=== PATIENT | female | born 1985 | race Caucasian/White ===

== ENCOUNTER 2016-12-11 04:26 | Emergency (ER) | payer OTHER ==
[2016-12-11 04:33] VITALS: BMI 40.1
--- NOTE | 2016-12-11 04:54 | ED PDOC ---
Arrival/HPI - General Chief Complaint: Seizure Time Seen by Provider: 12/11/16 04:32 Historian: Patient - History of Present Illness Narrative History of Present Illness (Text): 12/11/16 05:08 A 31 year old female, whose past medical history includes psychogenic seizures, presents to the emergency department after multiple episodes of seizures today. Patient notes compliance with medications. Patient denies history of epilepsy. Patient denies any other complaints at this time. PMD: Dr. Leary Symptom Onset: Sudden Symptom Course: Unchanged Activities at Onset: Rest Context: Home Past Medical History - Provider Review Nursing Documentation Reviewed: Yes - Infectious Disease Hx of Infectious Diseases: None - Tetanus Immunization Tetanus Immunization: Up to Date, Unknown - Cardiac Hx MA: No Other/Comment: MA - Pulmonary Hx Asthma: Yes Hx Bronchitis: Yes - Neurological Hx Migraine: Yes Hx Seizures: Yes - HEENT Hx Epistaxis: Yes - Renal Hx Pyelonephritis: Yes Other/Comment: Claims that righy kidney is not functional. - Endocrine/Metabolic Other/Comment: h/o adrenal mass - Hematological/Oncological Hx Cancer: Yes (cervix ca) - Integumentary Hx Dermatological Disorder: No - Musculoskeletal/Rheumatological Hx Falls: Yes - Gastrointestinal Hx Gastroesophageal Reflux: Yes - Genitourinary/Gynecological Hx Genitourinary Disorders: No Hx Cervical Cancer: Yes (Had cone bx done) - Psychiatric Hx Psychophysiologic Disorder: Yes (On seroquel.) Hx Bipolar Disorder: Yes Hx Substance Use: Yes - Past Surgical History Past Surgical History: No Previous - Surgical History Hx Cholecystectomy: Yes Hx Dilation and Curettage: Yes Other/Comment: adrenal removal on 03/07. - Anesthesia Hx Anesthesia Reactions: Yes (states she woke up during surgeries) Hx Malignant Hyperthermia: No - Suicidal Assessment Feels Threatened In Home Enviroment: No Family/Social History - Physician Review Nursing Documentation Reviewed: Yes Family/Social History: No Known Family HX Smoking Status: Heavy Smoker > 10 Cigarettes Daily Hx Alcohol Use: No Hx Substance Use: Yes Substance used: Marijuana 12/10/2016 Hx Substance Use Treatment: No Allergies/Home Meds Allergies/Adverse Reactions: Allergies almond Allergy (Verified 03/11/16 11:32) ANAPHYLAXIS almond oil Allergy (Verified 03/11/16 11:32) ANAPHYLAXIS Penicillins Allergy (Verified 03/11/16 11:32) ANAPHYLAXIS phenytoin Allergy (Verified 03/11/16 11:32) RASH Home Medications: Home Meds Medication Instructions Recorded Confirmed Albuterol HFA [Ventolin HFA 90 0.09 mg IH PRN PRN 02/16/12 04/26/16 mcg/actuation (8 g)] Lamotrigine [Lamictal] 200 mg PO HS 02/16/12 04/26/16 Montelukast [Singulair] 10 mg PO DAILY 02/16/12 04/26/16 Clonazepam [Klonopin] 1 mg PO TID 10/12/12 04/26/16 Diltiazem HCl [Cardizem] 30 mg PO TID 10/12/12 04/26/16 Topiramate [Topamax] 100 mg PO BID 10/12/12 04/26/16 buPROPion SR [Wellbutrin SR 150 MG] 150 mg PO QAM 04/30/13 04/26/16 Albuterol 0.5% [Albuterol 0.5% 2.5 mg IH QID 05/04/13 04/26/16 Inhal Wendy (2.5 mg/0.5 ml) UD] Lansoprazole [Prevacid] 20 mg PO DAILY 05/04/13 04/26/16 Acetaminophen/Butalbital/Caf 1 tab PO TID 01/31/14 04/26/16 [Fioricet 325 mg-50 mg-40 mg] Albuterol Sulfate [Ventolin Hfa] 1 puff INH TID 01/31/14 04/26/16 QUEtiapine [Seroquel XR] 100 mg PO TID 01/31/14 04/26/16 QUEtiapine [Seroquel XR] 300 mg PO HS 01/31/14 04/26/16 clonazePAM [Klonopin] 1 mg PO TID 01/31/14 04/26/16 Levetiracetam 500 mg PO DAILY 02/03/14 04/26/16 Baclofen 20 mg PO TID 03/11/16 04/26/16 Cyanocobalamin [Vitamin B12 1000 1,000 mcg PO DAILY 03/11/16 04/26/16 mcg Tab] LORazepam [Ativan] 1 mg PO TID 03/11/16 04/26/16 Naproxen [Naprosyn] 500 mg PO BID 03/11/16 04/26/16 Suboxone 8 mg-2 mg Sl Film 8 mg PO BID 03/11/16 04/26/16 Zolpidem [Ambien] 10 mg PO HS 03/11/16 04/26/16 hydrOXYzine Pamoate [Vistaril] 50 mg PO BID 03/11/16 04/26/16 Review of Systems - Physician Review All systems were reviewed & negative as marked: Yes Physical Exam - Physical Exam Narrative Physical Exam (Text): 12/11/16 04:50- Review of Systems Constitutional: Normal. absent: Fatigue, Weight Change, Fevers Eyes: Normal ENT: Normal Respiratory: Normal absent: SOB, Cough, Sputum Cardiovascular: Normal absent: Chest pain, Palpitations, Syncope Gastrointestinal: Normal absent: Abdominal pain, Diarrhea, Nausea, Vomiting Genitourinary: Normal. absent: Dysuria, Frequency, Hematuria Musculoskeletal: Normal. absent: Arthralgias, Back Pain, Neck Pain Skin: Normal Neurological: Present: seizure Endocrine: Normal Hemo/Lymphatic: Normal Psychiatric: Normal - Physical exam Patient appears age appropriate, speaking full sentences without difficulty Head atraumatic. No nasal bone deformity or tenderness, no facial or jaw pain/ swelling. No tongue biting, no oral lacerations. No neck midline tenderness, thoracic and lumbar spine with no midline tenderness. Pt moving b/l upper and lower extremities without difficulty, 5/5 strength, with full active and passive ROM. Distal neurovasc fully intact. Abd soft/nt/nd, no hematomas, no peritoneal signs. Neg. pelvic rock. - Systems Exam Head: Present: Atraumatic, Normocephalic Pupils: Present: PERRL Extraocular Muscles: Present: EOMI Conjunctiva: Present: Normal Mouth: Present: Moist Mucous Membranes. No mouth trauma, no tongue or mouth lacerations Neck: Present: Normal Range of Motion. No: MIDLINE TENDERNESS, Paraspinal Tenderness Respiratory/Chest: Present: Clear to Auscultation, Good Air Exchange. No: Respiratory Distress, Accessory Muscle Use, Tachypneic Cardiovascular: Present: Regular Rate and Rhythm, Normal S1, S2, Peripheral Pulses Present. No: Murmurs Abdomen: Present: Normal Bowel Sounds, No: Tenderness, Peritoneal Signs, Rebound, Guarding, Distention Back: Present: Normal Inspection. No: Midline Tenderness, Paraspinal Tenderness Upper Extremity: Present: Normal Inspection. No: Cyanosis, Edema Lower Extremity: Present: Normal Inspection. No: Edema Neurological: Present: GCS=15, Speech Normal, cranial nerves II through XII fully intact with no cerebellar abnormality, neuro-sensory fully intact. No focal neurological deficits. Skin: Present: Warm, Dry, Normal Color. No: Rashes Lymphatic: Present: OX3, NI, NC Psychiatric: Present: Alert, Oriented x 3, Normal Insight, Normal Concentration Vital Signs Reviewed: Yes Vital Signs Temp Pulse Resp BP Pulse Ox 12/11/16 04:53 99.3 F 86 17 122/75 96 Temperature: Afebrile Blood Pressure: Normal Pulse: Regular Respiratory Rate: Normal Appearance: Positive for: Well-Appearing, Non-Toxic, Comfortable Pain Distress: None Mental Status: Positive for: Alert and Oriented X 3 Medical Decision Making ED Course and Treatment: 12/11/16 05:03 Impression: A 31 year old female with multiple episodes of seizures. On physical exam, no acute findings. No focal neurological deficits. Plan: -- CT head -- labs -- Reassess and disposition Prior Visits: Notes and results from previous visits were reviewed. Patient last reported to the emergency department on 04/27/16 for evaluation of left sided chest pain. Patient was admitted to [facility]. Progress Notes: 12/11/16 04:42 Witness seizure lasted 30 seconds. Spontaneously resolved. Not post-ictal. Patient is alert and oriented X3, no focal neurological deficits. 12/11/16 07:41 The patient refuses admission and wishes to leave the Emergency Department against my medical advice. Patient was told that admission to the hospital is necessary and a full explanation of the reasons why was given, and understood by patient. The risks of leaving were explained and include worsening of condition, and permanent disability and from an undiagnosed or untreated condition. The patient accepts these risks, and is in my judgment is competent and capable of understanding the clinical situation and my explanation of the risks of leaving. Patient was given the opportunity to ask questions and change mind. The patient was instructed regarding the best care for the present symptoms, and to follow up with her neurologist as soon as possible, or return to the Emergency Department at any time for continuing care. Pt states she no longer drives. HEAD W/O CONTRAST Exam Date: 12/11/16 This imaging exam was performed at [facility] EXAM: CT Head Without Intravenous Contrast CLINICAL HISTORY: 31 years old, female; Condition or disease; Convulsions or seizures; Unspecified; Additional info: Seizure TECHNIQUE: Axial computed tomography images of the head/brain without intravenous contrast. This CT exam was performed using one or more of the following dose reduction techniques: automated exposure control, adjustment of the mA and/or kV according to patient size, and/or use of iterative reconstruction technique. EXAM DATE/TIME: 12/11/2016 4:44 AM COMPARISON: No relevant prior studies available. FINDINGS: No intracranial hemorrhage. No intracranial edema. No evidence of infarct. Mucosal retention cysts in the maxillary sinuses. IMPRESSION: No acute findings. Dictated By: Nati Senior MD - Lab Interpretations Lab Results: 12/11/16 04:35 12/11/16 04:35 Lab Results 12/11/16 04:35: Sodium 139, Potassium 3.9, Chloride 108 H, Carbon Dioxide 21, Anion Gap 14, BUN 10, Creatinine 0.9, Est GFR ( Amer) > 60, Est GFR (Non- Af Amer) > 60, Random Glucose 73, Calcium 8.8, Total Bilirubin 0.3, AST 17, ALT 21, Alkaline Phosphatase 52, Total Protein 6.9, Albumin 3.8, Globulin 3.1, Albumin/Globulin Ratio 1.2 12/11/16 04:35: WBC 9.3, RBC 4.50, Hgb 13.5, Hct 39.0, MCV 86.7, MCH 30.0, MCHC 34.6, RDW 14.3, Plt Count 296, MPV 11.0, Gran % 53.9, Lymph % (Auto) 35.4 H, [place] % (Auto) 8.3 H, Eos % (Auto) 2.0, Baso % (Auto) 0.4, Gran # 4.99, Lymph # 3.3, [place] # 0.8 H, Eos # 0.2, Baso # 0.04 I have reviewed the lab results: Yes - RAD Interpretation Radiology Orders: 12/11/16 04:44 HEAD W/O CONTRAST [CT] Stat - Scribe Statement The provider has reviewed the documentation as recorded by the Scribe Diane Aguilar All medical record entries made by the Scribe were at my direction and personally dictated by me. I have reviewed the chart and agree that the record accurately reflects my personal performance of the history, physical exam, medical decision making, and the department course for this patient. I have also personally directed, reviewed, and agree with the discharge instructions and disposition. Disposition/Present on Arrival - Present on Arrival Any Indicators Present on Arrival: No History of DVT/PE: No History of Uncontrolled Diabetes: No Urinary Catheter: No History of Decub. Ulcer: No History Surgical Site Infection Following: None - Disposition Have Diagnosis and Disposition been Completed?: Yes Diagnosis: Seizure Disposition: HOME/ ROUTINE Disposition Time: 07:20 Condition: GUARDED
[2016-12-11 05:06] LABS: ADD MANUAL DIFF? NO
[2016-12-11 05:13] LABS: BASO # 0.04 K/mm3 (0.0-2.0); BASO % 0.4 % (0.0-3.0); EOS # 0.2 (0.0-0.7); GRAN # 4.99 (1.4-6.5); GRAN % 53.9 % (50.0-68.0); LYMPH # 3.3 (1.2-3.4); LYMPH % 35.4 % (22.0-35.0); MEAN CELL VOLUME 86.7 fL (80.0-105.0); MEAN CORPUSCULAR HGB CONC 34.6 g/dl (31.0-37.0); MONO # 0.8 (0.1-0.6); MONO % 8.3 % (1.0-6.0); PLATELET COUNT 296 10^3/uL (120.0-450.0); RED CELL DISTRIBUTION WIDTH 14.3 % (11.5-14.5); WHITE BLOOD COUNT 9.3 10^3/ul (4.5-11.0)
[2016-12-11 05:24] VITALS: BP 122/75; PULSE 86; RESP 17; TEMP 99.3; O2SAT 96
[2016-12-11 05:34] LABS: ALB/GLOB RATIO 1.2 (1.1-1.8); ALKALINE PHOSPHATASE 52 U/L (38-133); ALT/SGPT 21 U/L (7-56); AST/SGOT 17 U/L (15-39); BILIRUBIN,TOTAL 0.3 mg/dL (0.2-1.3); BLOOD UREA NITROGEN 10 mg/dL (7-21); CALCIUM 8.8 mg/dL (8.4-10.5); CARBON DIOXIDE 21 mmol/L (21-33); CHLORIDE 108 mmol/L (98-107); GFR AFRICAN-AMERICAN > 60; GLUCOSE,RANDOM 73 mg/dL (70-110); POTASSIUM 3.9 mmol/L (3.6-5.0); SODIUM 139 mmol/L (132-148); TOTAL PROTEIN 6.9 g/dL (5.8-8.3)
--- NOTE | 2016-12-11 06:50 | CT ---
EXAM: CT Head Without Intravenous Contrast CLINICAL HISTORY: 31 years old, female; Condition or disease; Convulsions or seizures; Unspecified; Additional info: Seizure TECHNIQUE: Axial computed tomography images of the head/brain without intravenous contrast. This CT exam was performed using one or more of the following dose reduction techniques: automated exposure control, adjustment of the mA and/or kV according to patient size, and/or use of iterative reconstruction technique. EXAM DATE/TIME: 12/11/2016 4:44 AM COMPARISON: No relevant prior studies available. FINDINGS: No intracranial hemorrhage. No intracranial edema. No evidence of infarct. Mucosal retention cysts in the maxillary sinuses. IMPRESSION: No acute findings.
== END 2016-12-11 07:15 | disposition home or self-care (01) ==
LOC: ED 04:26
DX: R56.9 Unspecified convulsions (principal)

== ENCOUNTER 2017-01-07 21:35 | Emergency (ER) | payer OTHER ==
[2017-01-07 21:36] VITALS: BMI 40.1
[2017-01-07 21:43] VITALS: BP 127/80; PULSE 86; RESP 18; TEMP 99; O2SAT 100
--- NOTE | 2017-01-07 21:45 | ED PDOC ---
Arrival/HPI - General Time Seen by Provider: 01/07/17 21:38 Historian: Patient - History of Present Illness Narrative History of Present Illness (Text): 01/07/17 21:45 31 year old female, whose past medical history includes psychogenic seizures, presents to the emergency department brought in by EMS after multiple episodes of seizures today. Patient notes compliance with medications. Patient denies history of epilepsy. Patient denies any chest pain, shortness of breath, nausea , vomiting, back pain, neck pain, headache, dizziness, or any other complaints at this time. Neurologist: Dr. Xander Paulino PMD: Dr. Leary Time/Duration: Other (tonight) Symptom Onset: Sudden Symptom Course: Improving Activities at Onset: Light Past Medical History - Provider Review Nursing Documentation Reviewed: Yes - Infectious Disease Hx of Infectious Diseases: None - Tetanus Immunization Tetanus Immunization: Up to Date, Unknown - Cardiac Hx [place]: No Other/Comment: [place] - Pulmonary Hx Asthma: Yes Hx Bronchitis: Yes - Neurological Hx Migraine: Yes Hx Seizures: Yes - HEENT Hx Epistaxis: Yes - Renal Hx Pyelonephritis: Yes Other/Comment: Claims that righy kidney is not functional. - Endocrine/Metabolic Other/Comment: h/o adrenal mass - Hematological/Oncological Hx Cancer: Yes (cervix ca) - Integumentary Hx Dermatological Disorder: No - Musculoskeletal/Rheumatological Hx Falls: Yes - Gastrointestinal Hx Gastroesophageal Reflux: Yes - Genitourinary/Gynecological Hx Genitourinary Disorders: No Hx Cervical Cancer: Yes (Had cone bx done) - Psychiatric Hx Psychophysiologic Disorder: Yes (On seroquel.) Hx Bipolar Disorder: Yes Hx Substance Use: Yes - Past Surgical History Past Surgical History: No Previous - Surgical History Hx Cholecystectomy: Yes Hx Dilation and Curettage: Yes Other/Comment: adrenal removal on 03/07. - Anesthesia Hx Anesthesia Reactions: Yes (states she woke up during surgeries) Hx Malignant Hyperthermia: No - Suicidal Assessment Feels Threatened In Home Enviroment: No Family/Social History - Physician Review Nursing Documentation Reviewed: Yes Family/Social History: Unknown Family HX Smoking Status: Heavy Smoker > 10 Cigarettes Daily Hx Alcohol Use: No Hx Substance Use: Yes Substance used: Marijuana 12/10/2016 Hx Substance Use Treatment: No Allergies/Home Meds Allergies/Adverse Reactions: Allergies almond Allergy (Verified 08/25/16 11:32) ANAPHYLAXIS almond oil Allergy (Verified 03/11/16 11:32) ANAPHYLAXIS Penicillins Allergy (Verified 03/11/16 11:32) ANAPHYLAXIS phenytoin Allergy (Verified 03/11/16 11:32) RASH Home Medications: Home Meds Medication Instructions Recorded Confirmed Albuterol HFA [Ventolin HFA 90 0.09 mg IH PRN PRN 02/16/12 04/26/16 mcg/actuation (8 g)] Lamotrigine [Lamictal] 200 mg PO HS 02/16/12 04/26/16 Montelukast [Singulair] 10 mg PO DAILY 02/16/12 04/26/16 Clonazepam [Klonopin] 1 mg PO TID 10/12/12 04/26/16 Diltiazem HCl [Cardizem] 30 mg PO TID 10/12/12 04/26/16 Topiramate [Topamax] 100 mg PO BID 10/12/12 04/26/16 buPROPion SR [Wellbutrin SR 150 MG] 150 mg PO QAM 04/30/13 04/26/16 Albuterol 0.5% [Albuterol 0.5% 2.5 mg IH QID 05/04/13 04/26/16 Inhal Wendy (2.5 mg/0.5 ml) UD] Lansoprazole [Prevacid] 20 mg PO DAILY 05/04/13 04/26/16 Acetaminophen/Butalbital/Caf 1 tab PO TID 01/31/14 04/26/16 [Fioricet 325 mg-50 mg-40 mg] Albuterol Sulfate [Ventolin Hfa] 1 puff INH TID 01/31/14 04/26/16 QUEtiapine [Seroquel XR] 100 mg PO TID 01/31/14 04/26/16 QUEtiapine [Seroquel XR] 300 mg PO HS 01/31/14 04/26/16 clonazePAM [Klonopin] 1 mg PO TID 01/31/14 04/26/16 Levetiracetam 500 mg PO DAILY 02/03/14 04/26/16 Baclofen 20 mg PO TID 03/11/16 04/26/16 Cyanocobalamin [Vitamin B12 1000 1,000 mcg PO DAILY 03/11/16 04/26/16 mcg Tab] LORazepam [Ativan] 1 mg PO TID 03/11/16 04/26/16 Naproxen [Naprosyn] 500 mg PO BID 03/11/16 04/26/16 Suboxone 8 mg-2 mg Sl Film 8 mg PO BID 03/11/16 04/26/16 Zolpidem [Ambien] 10 mg PO HS 03/11/16 04/26/16 hydrOXYzine Pamoate [Vistaril] 50 mg PO BID 03/11/16 04/26/16 Physical Exam - Physical Exam Narrative Physical Exam (Text): - Review of Systems Constitutional: Normal. absent: Fatigue, Weight Change, Fevers Eyes: Normal ENT: Normal Respiratory: Normal absent: SOB, Cough, Sputum Cardiovascular: Normal absent: Chest pain, Palpitations, Syncope Gastrointestinal: Normal absent: Abdominal pain, Diarrhea, Nausea, Vomiting Genitourinary: Normal. absent: Dysuria, Frequency, Hematuria Musculoskeletal: Normal. absent: Arthralgias, Back Pain, Neck Pain Skin: Normal Neurological: +Seizure absent: Focal Weakness Endocrine: Normal Hemo/Lymphatic: Normal Psychiatric: Normal - Physical exam Patient appears age appropriate, speaking full sentences without difficulty. - Systems Exam Head: Present: Atraumatic, Normocephalic Pupils: Present: PERRL Extraocular Muscles: Present: EOMI Conjunctiva: Present: Normal Mouth: Present: Moist Mucous Membranes Neck: Present: Normal Range of Motion. No: MIDLINE TENDERNESS, Paraspinal Tenderness Respiratory/Chest: Present: Clear to Auscultation, Good Air Exchange. No: Respiratory Distress, Accessory Muscle Use, Tachypnic Cardiovascular: Present: Regular Rate and Rhythm, Normal S1, S2, Peripheral Pulses Present. No: Murmurs Abdomen: Present: Normal Bowel Sounds, No: Tenderness, Peritoneal Signs, Rebound, Guarding, Distention Back: Present: Normal Inspection. No: Midline Tenderness, Paraspinal Tenderness Upper Extremity: Present: Normal Inspection. No: Cyanosis, Edema Lower Extremity: Present: Normal Inspection. No: Edema Neurological: Present: GCS=15, Speech Normal, cranial nerves II through XII fully intact with no cerebellar abnormality, neuro-sensory fully intact. No focal neurological deficits. Skin: Present: Warm, Dry, Normal Color. No: Rashes Lymphatic: Present: OX3, NI, NC Psychiatric: Present: Alert, Oriented x 3, Normal Insight, Normal Concentration Vital Signs Temp Pulse Resp BP Pulse Ox 01/07/17 21:36 99.0 F 86 18 127/80 100 Finger Stick Blood Glucose: 108 Medical Decision Making ED Course and Treatment: 01/07/17 21:45 Impression: 31 year old female with multiple episodes of seizures. On physical exam, no acute findings. No focal neurological deficits. Pt has no mouth bite agarwal, was not post-ictal. Differential Diagnosis included but are not limited to: psychogenic seizure Plan: -- Reassess and disposition Prior Visits: Notes and results from previous visits were reviewed. On 12/11/2016, pt was seen in the Emergency department s/p multiple seizures. Pt left AMA. Progress Notes: Pt was offered full work-up and full admission to the hospital for further evaluation. Pt does not wish to stay and wants to leave the Emergency Department against my medical advice. Patient was told that further evaluation is necessary and a full explanation of the reasons why was given, and understood by patient. The risks of leaving were explained and include worsening of condition, and permanent disability and from an undiagnosed or untreated condition. The patient accepts these risks, and is in my judgment is competent and capable of understanding the clinical situation and my explanation of the risks of leaving. Patient was given the opportunity to ask questions and change mind. The patient was instructed regarding the best care for the present symptoms, and to follow up with her neurologist as soon as possible, or return to the Emergency Department at any time for continuing care. Pt ambulates without difficulty, steady gait, in no distress - Lab Interpretations Lab Results: Lab Results 01/07/17 21:39: POC Glucose (mg/dL) 105 - Scribe Statement The provider has reviewed the documentation as recorded by the Meka Foreman Provider Attestation: All medical record entries made by the Meka were at my direction and personally dictated by me. I have reviewed the chart and agree that the record accurately reflects my personal performance of the history, physical exam, medical decision making, and the department course for this patient. I have also personally directed, reviewed, and agree with the discharge instructions and disposition. Disposition/Present on Arrival - Present on Arrival Any Indicators Present on Arrival: No History of DVT/PE: No History of Uncontrolled Diabetes: No Urinary Catheter: No History Surgical Site Infection Following: None - Disposition Have Diagnosis and Disposition been Completed?: Yes Diagnosis: Seizure Disposition: HOME/ ROUTINE Disposition Time: 21:46 Patient Plan: Discharge Condition: GOOD Discharge Instructions (ExitCare): Recurrent Seizures in Adults (ED) Additional Instructions: PLEASE RETURN TO THE EMERGENCY DEPARTMENT FOR NEW OR WORSENING SYMPTOMS. RETURN RIGHT AWAY IF YOU CANNOT FOLLOW UP WITH YOUR PRIMARY CARE DOCTOR, CLINIC, OR SPECIALIST IN 1-2 DAYS. Referrals: Grey Beck MD [Staff Provider] - Follow up with primary Abhi Beck MD [Staff Provider] - Follow up with primary
== END 2017-01-07 22:04 | disposition home or self-care (01) ==
LOC: ED 21:35
DX: R56.9 Unspecified convulsions (principal); Z85.41 Personal history of malignant neoplasm of cervix uteri

== ENCOUNTER 2017-02-16 16:18 | Emergency (ER) | payer OTHER ==
[2017-02-16 16:39] VITALS: BP 113/66; RESP 18; BMI 38.8
--- NOTE | 2017-02-16 16:59 | ED PDOC ---
Arrival/HPI - General Chief Complaint: Lower Extremity Problem/Injury Time Seen by Provider: 02/16/17 16:56 Historian: Patient - History of Present Illness Narrative History of Present Illness (Text): 02/16/17 16:57 This 32 yo female presents to this ED c/o left lower leg pain x 5 days. Patient noted skin discoloration since yesterday. Denies other complains. Denies trauma. Time/Duration: Other (5 days) Context: Home Past Medical History - Infectious Disease Hx of Infectious Diseases: None - Tetanus Immunization Tetanus Immunization: Up to Date, Unknown - Cardiac Hx [place]: No Hx Hypertension: Yes Other/Comment: [place] - Pulmonary Hx Asthma: Yes Hx Bronchitis: Yes - Neurological Hx Migraine: Yes Hx Seizures: Yes - HEENT Hx Epistaxis: Yes - Renal Hx Pyelonephritis: Yes Other/Comment: Claims that righy kidney is not functional. - Endocrine/Metabolic Other/Comment: h/o adrenal mass - Hematological/Oncological Hx Cancer: Yes (cervix ca) - Integumentary Hx Dermatological Disorder: No - Musculoskeletal/Rheumatological Hx Falls: Yes - Gastrointestinal Hx Gastroesophageal Reflux: Yes - Genitourinary/Gynecological Hx Genitourinary Disorders: No Hx Cervical Cancer: Yes (Had cone bx done) Hx Urinary Tract Infection: Yes - Psychiatric Hx Psychophysiologic Disorder: Yes (On seroquel.) Hx Bipolar Disorder: Yes Hx Substance Use: Yes - Past Surgical History Past Surgical History: No Previous - Surgical History Hx Cholecystectomy: Yes Hx Dilation and Curettage: Yes Other/Comment: adrenal removal on 03/07. - Anesthesia Hx Anesthesia Reactions: Yes (states she woke up during surgeries) Hx Malignant Hyperthermia: No - Suicidal Assessment Feels Threatened In Home Enviroment: No Family/Social History Smoking Status: Heavy Smoker > 10 Cigarettes Daily Hx Alcohol Use: No Hx Substance Use: Yes Substance used: Marijuana 12/10/2016 Hx Substance Use Treatment: No Allergies/Home Meds Allergies/Adverse Reactions: Allergies almond Allergy (Verified 03/11/16 11:32) ANAPHYLAXIS almond oil Allergy (Verified 03/11/16 11:32) ANAPHYLAXIS Penicillins Allergy (Verified 03/11/16 11:32) ANAPHYLAXIS phenytoin Allergy (Verified 03/11/16 11:32) RASH Home Medications: Home Meds Medication Instructions Recorded Confirmed Albuterol HFA [Ventolin HFA 90 0.09 mg IH PRN PRN 02/16/12 04/26/16 mcg/actuation (8 g)] Lamotrigine [Lamictal] 200 mg PO HS 02/16/12 04/26/16 Montelukast [Singulair] 10 mg PO DAILY 02/16/12 04/26/16 Clonazepam [Klonopin] 1 mg PO TID 10/12/12 04/26/16 Diltiazem HCl [Cardizem] 30 mg PO TID 10/12/12 04/26/16 Topiramate [Topamax] 100 mg PO BID 10/12/12 04/26/16 buPROPion SR [Wellbutrin SR 150 MG] 150 mg PO QAM 04/30/13 04/26/16 Albuterol 0.5% [Albuterol 0.5% 2.5 mg IH QID 05/04/13 04/26/16 Inhal Wendy (2.5 mg/0.5 ml) UD] Lansoprazole [Prevacid] 20 mg PO DAILY 05/04/13 04/26/16 Acetaminophen/Butalbital/Caf 1 tab PO TID 01/31/14 04/26/16 [Fioricet 325 mg-50 mg-40 mg] Albuterol Sulfate [Ventolin Hfa] 1 puff INH TID 01/31/14 04/26/16 QUEtiapine [Seroquel XR] 100 mg PO TID 01/31/14 04/26/16 QUEtiapine [Seroquel XR] 300 mg PO HS 01/31/14 04/26/16 clonazePAM [Klonopin] 1 mg PO TID 01/31/14 04/26/16 Levetiracetam 500 mg PO DAILY 02/03/14 04/26/16 Baclofen 20 mg PO TID 03/11/16 04/26/16 Cyanocobalamin [Vitamin B12 1000 1,000 mcg PO DAILY 03/11/16 04/26/16 mcg Tab] LORazepam [Ativan] 1 mg PO TID 03/11/16 04/26/16 Naproxen [Naprosyn] 500 mg PO BID 03/11/16 04/26/16 Suboxone 8 mg-2 mg Sl Film 8 mg PO BID 03/11/16 04/26/16 Zolpidem [Ambien] 10 mg PO HS 03/11/16 04/26/16 hydrOXYzine Pamoate [Vistaril] 50 mg PO BID 03/11/16 04/26/16 Physical Exam Vital Signs Temp Pulse Resp BP Pulse Ox 02/16/17 16:37 99.1 F 88 18 113/66 98 02/16/17 16:34 99.1 F 88 18 113/66 98 Medical Decision Making ED Course and Treatment: 02/16/17 18:28 Patient Re-evaluation Time: 18:29 Reassessment Condition: Re-examined, Improved - RAD Interpretation Narrative RAD Interpretations (Text): 02/16/17 18:29 Venous Doppler Lower extremity: No DVT as per US Radiology Orders: 02/16/17 16:56 DUPLEX LOWER EXTRM VEIN LEFT [US] Stat 02/16/17 16:57 TIBIA FIBULA LEFT [RAD] Stat Disposition/Present on Arrival - Present on Arrival Any Indicators Present on Arrival: No History of DVT/PE: No History of Uncontrolled Diabetes: No Urinary Catheter: No History of Decub. Ulcer: No History Surgical Site Infection Following: None - Disposition Have Diagnosis and Disposition been Completed?: Yes Diagnosis: Leg pain Disposition: HOME/ ROUTINE Disposition Time: 18:31 Patient Plan: Discharge Patient Problems: Current Active Problems Problem Status Onset Leg pain Acute Condition: GOOD Discharge Instructions (ExitCare): Leg Pain (ED) Additional Instructions: Call private doctor for follow up visit in 1-2 days. Take medication as instructed. Return to emergency if symptoms worsen. Referrals: Tamar Leary MD [Primary Care Provider] - Follow up with primary Forms: [employer] (Bengali)
--- NOTE | 2017-02-16 18:34 | US ---
PROCEDURE: Left lower extremity venous US HISTORY: Leg pain and swelling. Evaluate for DVT. PHYSICIAN(S): Adam Vazquez MD. TECHNIQUE: Duplex sonography and color-flow Doppler with graded compression were used to evaluate the deep venous system of the left lower extremity. FINDINGS: The visualized deep venous system of the left lower extremity is sonographically normal and compressible. Normal wave forms and augmentation are seen. There is no sonographic evidence for deep venous thrombosis in the visualized segments of the left lower extremity. IMPRESSION: 1. No sonographic evidence for deep venous thrombosis in the visualized segments of the left lower extremity.
[2017-02-16 18:42] VITALS: PULSE 90; TEMP 98.1
[2017-02-16 18:43] VITALS: O2SAT 99
--- NOTE | 2017-02-16 18:44 | RAD ---
PROCEDURE: Radiographs of the left tibia and fibula. HISTORY: swelling COMPARISON: None available. TECHNIQUE: Frontal and lateral views obtained. FINDINGS: BONES: There is no acute displaced fracture or bone destruction. Bone alignment is normal. An ovoid focal area of sclerosis in the medial tibial plateau is statistically most compatible with a bone island. JOINT SPACES: Unremarkable. OTHER FINDINGS: None. IMPRESSION: No acute fracture or bone destruction.
== END 2017-02-16 18:43 | disposition home or self-care (01) ==
LOC: ED 16:18
DX: M79.605 Pain in left leg (principal); I25.2 Old myocardial infarction; I10 Essential (primary) hypertension; F17.210 Nicotine dependence, cigarettes, uncomplicated

== ENCOUNTER 2017-03-08 18:55 | Emergency (ER) | payer OTHER ==
[2017-03-08 18:57] VITALS: BMI 38.9
[2017-03-08 19:02] VITALS: TEMP 99.5
[2017-03-08] MEDS ORDERED: Sodium Chloride 0.9% 1,000 ML IV STA (19:54)
[2017-03-08 20:11] LABS: URINE BILIRUBIN SMALL (NEGATIVE); URINE BLOOD TRACE-LYSED (NEGATIVE); URINE GLUCOSE (UA) NEGATIVE (NEGATIVE); URINE KETONE 40 mg/dL (NEGATIVE); URINE LEUKOCYTE ESTERASE NEGATIVE Leu/uL (NEGATIVE); URINE PROTEIN 30 mg/dL (<30 mg/dL)
[2017-03-08 20:12] LABS: URINE APPEARANCE SL CLOUDY (CLEAR); URINE COLOR YELLOW (YELLOW)
--- NOTE | 2017-03-08 20:16 | ED PDOC ---
Arrival/HPI - General Chief Complaint: Abdominal Pain Time Seen by Provider: 03/08/17 19:41 Historian: Patient - History of Present Illness Narrative History of Present Illness (Text): 03/08/17 20:12 A 32 year old female with A4, whose past medical history includes cholecystectomy, benign adrenal mass, kidney stones and ovarian cysts, presents to the emergency department complaining of right sided abdominal discomfort for the past few days. Patient reports positive home test and states her last menstrual period was on 01/18/17. Patient notes nausea and non-bloody vomiting but denies any fever, chills, diarrhea, urinary symptoms, back pain, chest pain, shortness of breath, cough or any other complaints. Time/Duration: Other (few days) Symptom Course: Unchanged Quality: Other Context: Home Past Medical History - Provider Review Nursing Documentation Reviewed: Yes - Infectious Disease Hx of Infectious Diseases: None - Tetanus Immunization Tetanus Immunization: Up to Date, Unknown - Cardiac Hx Cardiac Disorders: Yes Hx [place]: No Hx Hypertension: Yes Other/Comment: [place] - Pulmonary Hx Asthma: Yes Hx Bronchitis: Yes - Neurological Hx Neurological Disorder: Yes Hx Migraine: Yes Hx Seizures: Yes - HEENT Hx HEENT Disorder: Yes Hx Epistaxis: Yes - Renal Hx Renal Disorder: Yes Hx Pyelonephritis: Yes Other/Comment: Claims that righy kidney is not functional. - Endocrine/Metabolic Hx Endocrine Disorders: Yes Other/Comment: h/o adrenal mass - Hematological/Oncological Hx Blood Disorders: Yes Hx Cancer: Yes (cervix ca) - Integumentary Hx Dermatological Disorder: No - Musculoskeletal/Rheumatological Hx Musculoskeletal Disorders: Yes Hx Falls: Yes - Gastrointestinal Hx Gastrointestinal Disorders: Yes Hx Gastroesophageal Reflux: Yes - Genitourinary/Gynecological Hx Genitourinary Disorders: Yes Hx Cervical Cancer: Yes (Had cone bx done) Hx Urinary Tract Infection: Yes - Psychiatric Hx Psychophysiologic Disorder: Yes (On seroquel.) Hx Bipolar Disorder: Yes Hx Substance Use: Yes - Past Surgical History Past Surgical History: No Previous - Surgical History Hx Cholecystectomy: Yes Hx Dilation and Curettage: Yes Other/Comment: adrenal removal on 03/07. - Anesthesia Hx Anesthesia: Yes Hx Anesthesia Reactions: Yes (states she woke up during surgeries) Hx Malignant Hyperthermia: No - Suicidal Assessment Feels Threatened In Home Enviroment: No Family/Social History - Physician Review Nursing Documentation Reviewed: Yes Family/Social History: No Known Family HX Smoking Status: Heavy Smoker > 10 Cigarettes Daily Hx Alcohol Use: No Hx Substance Use: Yes Substance used: Marijuana 12/10/2016 Hx Substance Use Treatment: No Allergies/Home Meds Allergies/Adverse Reactions: Allergies almond Allergy (Verified 03/08/17 18:57) ANAPHYLAXIS almond oil Allergy (Verified 03/08/17 18:57) ANAPHYLAXIS Penicillins Allergy (Verified 03/08/17 18:57) ANAPHYLAXIS phenytoin Allergy (Verified 03/08/17 18:57) RASH Home Medications: Home Meds Medication Instructions Recorded Confirmed Albuterol HFA [Ventolin HFA 90 0.09 mg IH PRN PRN 02/16/12 03/08/17 mcg/actuation (8 g)] Lamotrigine [Lamictal] 200 mg PO HS 02/16/12 03/08/17 Montelukast [Singulair] 10 mg PO DAILY 02/16/12 03/08/17 Clonazepam [Klonopin] 1 mg PO TID 10/12/12 03/08/17 Diltiazem HCl [Cardizem] 30 mg PO TID 10/12/12 03/08/17 buPROPion SR [Wellbutrin SR 150 MG] 150 mg PO QAM 04/30/13 03/08/17 Albuterol 0.5% [Albuterol 0.5% 2.5 mg IH QID 05/04/13 03/08/17 Inhal Wendy (2.5 mg/0.5 ml) UD] Lansoprazole [Prevacid] 20 mg PO DAILY 05/04/13 03/08/17 Albuterol Sulfate [Ventolin Hfa] 1 puff INH TID 01/31/14 03/08/17 QUEtiapine [Seroquel XR] 100 mg PO TID 01/31/14 03/08/17 QUEtiapine [Seroquel XR] 200 mg PO HS 01/31/14 03/08/17 clonazePAM [Klonopin] 1 mg PO TID 01/31/14 03/08/17 Levetiracetam 500 mg PO DAILY 02/03/14 03/08/17 Baclofen 20 mg PO TID 03/11/16 03/08/17 Cyanocobalamin [Vitamin B12 1000 1,000 mcg PO DAILY 03/11/16 03/08/17 mcg Tab] Naproxen [Naprosyn] 500 mg PO BID 03/11/16 03/08/17 Zolpidem [Ambien] 10 mg PO HS 03/11/16 03/08/17 hydrOXYzine Pamoate [Vistaril] 50 mg PO BID 03/11/16 03/08/17 QUEtiapine [SEROquel] 200 mg PO ONCE 03/08/17 03/08/17 Review of Systems - Physician Review All systems were reviewed & negative as marked: Yes - Review of Systems Constitutional: absent: Fevers, Night Sweats Respiratory: absent: SOB, Cough Cardiovascular: absent: Chest Pain Gastrointestinal: Abdominal Pain (right sided), Nausea, Vomiting. absent: Diarrhea Genitourinary Female: absent: Dysuria, Frequency, Hematuria, Urine Output Changes, Vaginal Bleeding, Vaginal Discharge Musculoskeletal: absent: Back Pain Physical Exam Vital Signs Reviewed: Yes Vital Signs Temp Pulse Resp BP Pulse Ox 03/08/17 22:05 76 18 117/72 100 03/08/17 19:01 99.5 F 99 H 19 118/82 98 Temperature: Afebrile Blood Pressure: Normal Pulse: Tachycardic Respiratory Rate: Normal Appearance: Positive for: Well-Appearing, Non-Toxic, Comfortable Pain Distress: None Mental Status: Positive for: Alert and Oriented X 3 - Systems Exam Head: Present: Atraumatic, Normocephalic Pupils: Present: PERRL Extroacular Muscles: Present: EOMI Conjunctiva: Present: Normal Mouth: Present: Moist Mucous Membranes Pharnyx: Present: Normal. No: ERYTHEMA, EXUDATE, TONSILS ENLARGED Neck: Present: Normal Range of Motion Respiratory/Chest: Present: Clear to Auscultation, Good Air Exchange. No: Respiratory Distress, Accessory Muscle Use Cardiovascular: Present: Regular Rate and Rhythm, Normal S1, S2. No: Murmurs Abdomen: Present: Normal Bowel Sounds. No: Tenderness, Distention, Peritoneal Signs Back: Present: Normal Inspection Upper Extremity: Present: Normal Inspection. No: Cyanosis, Edema Lower Extremity: Present: Normal Inspection. No: Edema Neurological: Present: GCS=15, CN II-XII Intact, Speech Normal Skin: Present: Warm, Dry, Normal Color. No: Rashes Psychiatric: Present: Alert, Oriented x 3, Normal Insight, Normal Concentration Medical Decision Making ED Course and Treatment: 03/08/17 20:12 Impression: A 32 year old female A4 with right sided abdominal pain. Patient notes nausea and non-bloody vomiting. Plan: -- Transvaginal ultrasound -- Labs -- Urinalysis -- IV fluids -- Reassess and disposition Progress Notes: 03/08/17 21:26 Reviewed sono, Transvaginal US shows: 1. A single viable intrauterine fetus is identified. 2. The estimated gestational age is 6 weeks, 6 days. 03/08/17 22:10 On reevaluation the patient feels better and is in no acute distress. Patient is stable for discharge. Patient was instructed to follow up with physician/ clinic in 1-2 days or return if symptoms persist/worsen or new concerning symptoms arise. Pt given [facility], as [facility] pt request, for follow-up . - Lab Interpretations Lab Results: 03/08/17 20:15 03/08/17 20:15 Lab Results 03/08/17 20:21: Blood Type A POSITIVE, Antibody Screen Negative, BBK History Checked Patient has bt 03/08/17 20:15: WBC 9.2, RBC 4.80, Hgb 14.9, Hct 41.2, MCV 85.8, MCH 31.0, MCHC 36.2, RDW 13.1, Plt Count 347, MPV 10.9 03/08/17 20:15: Beta HCG, Quant 80093.00 H 03/08/17 20:15: Sodium 141, Potassium 3.9, Chloride 105, Carbon Dioxide 24, Anion Gap 16, BUN 8, Creatinine 0.6, Est GFR ( Amer) > 60, Est GFR (Non- Af Amer) > 60, Random Glucose 98, Calcium 9.5, Total Bilirubin 0.7, AST 31, ALT 31, Alkaline Phosphatase 64, Total Protein 8.0, Albumin 4.6, Globulin 3.4, Albumin/Globulin Ratio 1.4, Lipase 62 03/08/17 19:55: Urine Color Yellow, Urine Appearance Sl cloudy, Urine pH 6.0, Ur Specific [place] 1.025, Urine Protein 30 H, Urine Glucose (UA) Negative, Urine Ketones 40 H, Urine Blood Trace-lysed H, Urine Nitrate Negative, Urine Bilirubin Small H, Urine Urobilinogen 1.0 H, Ur Leukocyte Esterase Negative, Urine RBC 0 - 2, Urine WBC 2 - 5, Ur Epithelial Cells 3 - 4, Urine Bacteria Few , Urine HCG, Qual Positive I have reviewed the lab results: Yes - RAD Interpretation Narrative RAD Interpretations (Text): Transvaginal US shows: Gestation: A single intrauterine gestational sac is identified, with pole and yolk sac. The estimated gestational age is 6 weeks, 6 days. motion is visualized although the heart rate of 123 bpm. Placenta/amniotic fluid: Cannot be adequately evaluated due to the early gestational age. Uterus/cervix: The uterus measures 6.3 x 4.5 x 4.1 cm. No myometrial mass. Ovaries: The right ovary measures 3.5 x 1.8 x 2.2 cm. The left ovary measures 2.3 x 2.3 x 2.3 cm. There is physiologic blood flow within each ovary. No mass. Free fluid: No free fluid. IMPRESSION: 1. A single viable intrauterine fetus is identified. 2. The estimated gestational age is 6 weeks, 6 days. Radiology Orders: 03/08/17 19:54 OB TRANSVAGINAL [US] Stat Dental Sales Representative: Radiologist - Medication Orders Current Medication Orders: Discontinued Medications Acetaminophen (Tylenol 325mg Tab) 650 mg PO STAT STA Stop: 03/08/17 21:34 Last Admin: 03/08/17 21:47 Dose: 650 mg Sodium Chloride (Sodium Chloride 0.9%) 1,000 mls @ 999 mls/hr IV .Q1H1M STA Stop: 03/08/17 20:54 Last Admin: 03/08/17 20:19 Dose: 999 mls/hr Metoclopramide HCl (Reglan) 10 mg IVP STAT STA Stop: 03/08/17 21:20 Last Admin: 03/08/17 21:35 Dose: 10 mg - Scribe Statement The provider has reviewed the documentation as recorded by the Meka Escamilla Provider Scribe Attestation: All medical record entries made by the Scribe were at my direction and personally dictated by me. I have reviewed the chart and agree that the record accurately reflects my personal performance of the history, physical exam, medical decision making, and the department course for this patient. I have also personally directed, reviewed, and agree with the discharge instructions and disposition. Disposition/Present on Arrival - Present on Arrival Any Indicators Present on Arrival: No History of DVT/PE: No History of Uncontrolled Diabetes: No Urinary Catheter: No History of Decub. Ulcer: No History Surgical Site Infection Following: None - Disposition Have Diagnosis and Disposition been Completed?: Yes Diagnosis: Threatened , Nausea & vomiting Disposition: HOME/ ROUTINE Disposition Time: 22:11 Patient Plan: Discharge Patient Problems: Current Active Problems Problem Status Onset Threatened Acute Condition: STABLE Discharge Instructions (ExitCare): Threatened Miscarriage (ED) Additional Instructions: Medication as prescribed for nausea/[facility]: [facility]: [place], [place] [address], [address] [place] [address] Prescriptions: Doxylamine/Pyridoxine HCl (B6) [Olga Lidia Sharma 10-10 mg Tablet] 1 each PO BID PRN # 10 tablet. PRN Reason: Nausea/Vomiting Referrals: Tamar Leary MD [Primary Care Provider] - Follow up with primary Forms: [employer] (Egyptian)
[2017-03-08 20:24] LABS: URINE BACTERIA FEW (NEG); URINE RBC 0 - 2 /hpf (0-2)
[2017-03-08 20:27] LABS: HEMATOCRIT 41.2 % (36.0-48.0); MEAN CELL VOLUME 85.8 fl (80.0-105.0); MEAN CORPUSCULAR HGB CONC 36.2 g/dl (31.0-37.0); MEAN PLATELET VOLUME 10.9 fl (7.0-11.0); RED CELL DISTRIBUTION WIDTH 13.1 % (11.5-14.5); WHITE BLOOD COUNT 9.2 10^3/ul (4.5-11.0)
[2017-03-08 20:51] LABS: ALB/GLOB RATIO 1.4 (1.1-1.8); ALKALINE PHOSPHATASE 64 U/L (38-133); ALT/SGPT 31 U/L (7-56); AST/SGOT 31 U/L (15-39); BILIRUBIN,TOTAL 0.7 mg/dL (0.2-1.3); BLOOD UREA NITROGEN 8 mg/dL (7-21); CALCIUM 9.5 mg/dL (8.4-10.5); CARBON DIOXIDE 24 mmol/L (21-33); CHLORIDE 105 mmol/L (98-107); GFR AFRICAN-AMERICAN > 60; GLUCOSE,RANDOM 98 mg/dL (70-110); LIPASE 62 U/L (23-300); POTASSIUM 3.9 mmol/L (3.6-5.0); SODIUM 141 mmol/L (132-148)
--- NOTE | 2017-03-08 21:22 | US ---
EXAM: US First Trimester, Transabdominal US , Transvaginal EXAM DATE/TIME: 03/08/2017 7:54 PM CLINICAL HISTORY: The patient age is 32 years old and is female; Pain; complicated by abdominal or pelvic pain; Lower; First trimester; Gestational age or lmp: 6 weeks 6 days; Facility exam id and description: Us obtransvag ob transvaginal TECHNIQUE: Real-time transabdominal and transvaginal obstetrical ultrasound of the maternal pelvis and a first trimester with image documentation. Transvaginal imaging was used for better evaluation of the fetus and adnexa. COMPARISON: CT - ABD PELVIS W/O PO OR IV CONT 03/11/2016 1:55:42 AM FINDINGS: Gestation: A single intrauterine gestational sac is identified, with pole and yolk sac. The estimated gestational age is 6 weeks, 6 days. motion is visualized although the heart rate of 123 bpm. Placenta/amniotic fluid: Cannot be adequately evaluated due to the early gestational age. Uterus/cervix: The uterus measures 6.3 x 4.5 x 4.1 cm. No myometrial mass. Ovaries: The right ovary measures 3.5 x 1.8 x 2.2 cm. The left ovary measures 2.3 x 2.3 x 2.3 cm. There is physiologic blood flow within each ovary. No mass. Free fluid: No free fluid. IMPRESSION: 1. A single viable intrauterine fetus is identified. 2. The estimated gestational age is 6 weeks, 6 days.
[2017-03-08 22:06] VITALS: BP 117/72; PULSE 76; RESP 18; O2SAT 100
== END 2017-03-08 22:21 | disposition home or self-care (01) ==
LOC: ED 18:55
DX: O20.0 Threatened abortion (principal); O21.9 Vomiting of pregnancy, unspecified; Z3A.01 Less than 8 weeks gestation of pregnancy
CPT/HCPCS: 76817; 80053; 81001; 83690; 84702; 84703; 85027; 86850; 86900; 96361; 96374; 99285; J2765; J7040

== ENCOUNTER 2017-05-08 21:46 | Emergency (ER) | payer OTHER ==
[2017-05-08 21:47] VITALS: BMI 38.9
[2017-05-08] MEDS ORDERED: Sodium Chloride 0.9% 1,000 ML IV STA (22:25)
[2017-05-08] MEDS ORDERED: Morphine 4 mg/ml ISec IVP STA (22:25)
[2017-05-08 22:50] LABS: URINE BILIRUBIN NEGATIVE (NEGATIVE); URINE BLOOD MODERATE (NEGATIVE); URINE GLUCOSE (UA) NEGATIVE (NEGATIVE); URINE KETONE NEGATIVE (NEGATIVE); URINE LEUKOCYTE ESTERASE NEGATIVE Leu/uL (NEGATIVE); URINE PROTEIN NEGATIVE mg/dL (<30 mg/dL); URINE UROBILINOGEN 0.2 E.U./dL (<1 E.U./dL)
--- NOTE | 2017-05-08 22:52 | ED PDOC ---
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 on march 22 , w/ subsequent prresents c/o heavy vagional bleeding from friday 05/04-05/05, then 05/06 until today, soaking through more 4 pads in the past 2 hours while being upstairs visting her partner , + accompanying crampy pain. Pt also c/o associated dizziness, but denies palpitations/cp/sob/recent febrile illness nor other symptoms of infective foci. 05/08/17 22:46 Past Medical History - Provider Review Nursing Documentation Reviewed: Yes - Infectious Disease Hx of Infectious Diseases: None - Tetanus Immunization Tetanus Immunization: Up to Date, Unknown - Reproductive Menopause: No - Cardiac Hx Cardiac Disorders: Yes Hx [place]: No Hx Hypertension: Yes Other/Comment: [place] - Pulmonary Hx Asthma: Yes Hx Bronchitis: Yes - Neurological Hx Neurological Disorder: Yes Hx Migraine: Yes Hx Seizures: Yes - HEENT Hx HEENT Disorder: Yes Hx Epistaxis: Yes - Renal Hx Renal Disorder: Yes Hx Pyelonephritis: Yes Other/Comment: Claims that righy kidney is not functional. - Endocrine/Metabolic Hx Endocrine Disorders: Yes Other/Comment: h/o adrenal mass - Hematological/Oncological Hx Blood Disorders: Yes Hx Cancer: Yes (cervix ca) - Integumentary Hx Dermatological Disorder: No - Musculoskeletal/Rheumatological Hx Musculoskeletal Disorders: Yes Hx Falls: Yes - Gastrointestinal Hx Gastrointestinal Disorders: Yes Hx Gastroesophageal Reflux: Yes - Genitourinary/Gynecological Hx Genitourinary Disorders: Yes Hx Cervical Cancer: Yes (Had cone bx done) Hx Urinary Tract Infection: Yes - Psychiatric Hx Psychophysiologic Disorder: Yes (On seroquel.) Hx Bipolar Disorder: Yes Hx Substance Use: Yes - Past Surgical History Past Surgical History: No Previous - Surgical History Hx Cholecystectomy: Yes Hx Dilation and Curettage: Yes Other/Comment: adrenal removal on 03/07. - Anesthesia Hx Anesthesia: Yes Hx Anesthesia Reactions: Yes (states she woke up during surgeries) Hx Malignant Hyperthermia: No - Suicidal Assessment Feels Threatened In Home Enviroment: No Family/Social History - Physician Review Nursing Documentation Reviewed: Yes Family/Social History: No Known Family HX Smoking Status: Heavy Smoker > 10 Cigarettes Daily Hx Alcohol Use: No Hx Substance Use: Yes Substance used: Marijuana Hx Substance Use Treatment: No Allergies/Home Meds Allergies/Adverse Reactions: Allergies almond Allergy (Verified 03/08/17 18:57) ANAPHYLAXIS almond oil Allergy (Verified 03/08/17 18:57) ANAPHYLAXIS Penicillins Allergy (Verified 03/08/17 18:57) ANAPHYLAXIS phenytoin Allergy (Verified 03/08/17 18:57) RASH Home Medications: Home Meds Medication Instructions Recorded Confirmed Albuterol HFA [Ventolin HFA 90 0.09 mg IH PRN PRN 02/16/12 03/08/17 mcg/actuation (8 g)] Lamotrigine [Lamictal] 200 mg PO HS 02/16/12 03/08/17 Montelukast [Singulair] 10 mg PO DAILY 02/16/12 03/08/17 Clonazepam [Klonopin] 1 mg PO TID 10/12/12 03/08/17 Diltiazem HCl [Cardizem] 30 mg PO TID 10/12/12 03/08/17 buPROPion SR [Wellbutrin SR 150 MG] 150 mg PO QAM 04/30/13 03/08/17 Albuterol 0.5% [Albuterol 0.5% 2.5 mg IH QID 05/04/13 03/08/17 Inhal Wendy (2.5 mg/0.5 ml) UD] Lansoprazole [Prevacid] 20 mg PO DAILY 05/04/13 03/08/17 Albuterol Sulfate [Ventolin Hfa] 1 puff INH TID 01/31/14 03/08/17 QUEtiapine [Seroquel XR] 100 mg PO TID 01/31/14 03/08/17 QUEtiapine [Seroquel XR] 200 mg PO HS 01/31/14 03/08/17 clonazePAM [Klonopin] 1 mg PO TID 01/31/14 03/08/17 Levetiracetam 500 mg PO DAILY 02/03/14 03/08/17 Baclofen 20 mg PO TID 03/11/16 03/08/17 Cyanocobalamin [Vitamin B12 1000 1,000 mcg PO DAILY 03/11/16 03/08/17 mcg Tab] Naproxen [Naprosyn] 500 mg PO BID 03/11/16 03/08/17 Zolpidem [Ambien] 10 mg PO HS 03/11/16 03/08/17 hydrOXYzine Pamoate [Vistaril] 50 mg PO BID 03/11/16 03/08/17 QUEtiapine [SEROquel] 200 mg PO ONCE 03/08/17 03/08/17 Review of Systems - Physician Review All systems were reviewed & negative as marked: Yes - Review of Systems Constitutional: Normal Eyes: Normal ENT: Normal Respiratory: Normal Cardiovascular: Normal Gastrointestinal: Normal Genitourinary Female: Vaginal Bleeding Musculoskeletal: Normal Skin: Normal Neurological: Normal Endocrine: Normal Hemo/Lymphatic: Normal Psychiatric: Normal Physical Exam Vital Signs Reviewed: Yes Vital Signs Temp Pulse Resp BP Pulse Ox 05/08/17 22:01 98.1 F 76 16 109/68 98 Temperature: Afebrile Blood Pressure: Normal Pulse: Regular Respiratory Rate: Normal Appearance: Positive for: Well-Appearing, Non-Toxic, Comfortable Pain Distress: None Mental Status: Positive for: Alert and Oriented X 3 - Systems Exam Head: Present: Atraumatic, Normocephalic Pupils: Present: PERRL Extroacular Muscles: Present: EOMI Conjunctiva: Present: Normal Mouth: Present: Moist Mucous Membranes Pharnyx: Present: Normal Neck: Present: Normal Range of Motion Respiratory/Chest: Present: Clear to Auscultation, Good Air Exchange. No: Respiratory Distress, Accessory Muscle Use Cardiovascular: Present: Regular Rate and Rhythm, Normal S1, S2. No: Murmurs Abdomen: Present: Normal Bowel Sounds. No: Tenderness, Distention, Peritoneal Signs Rectal: Present: Other (deferred) Genitourinary/Pelvic Exam: Present: Vaginal Bleeding Back: Present: Normal Inspection Upper Extremity: Present: Normal Inspection. No: Cyanosis, Edema Lower Extremity: Present: Normal Inspection. No: Edema Neurological: Present: GCS=15, CN II-XII Intact, Speech Normal, Motor Func Grossly Intact, Normal Sensory Function, Normal Cerebellar Funct, Norm Deep Tendon Reflexes, Gait Normal, Memory Normal Skin: Present: Warm, Dry, Normal Color. No: Rashes Psychiatric: Present: Alert, Oriented x 3, Normal Insight, Normal Concentration Medical Decision Making ED Course and Treatment: dysfucntional uterine bleeding r/o anemia , check tvus to [place] endometrial stripe and check for fibroids. 05/08/17 22:56 05/09/17 01:26 patient was refusing pelvic ultrasound and pelvic exam , stating she is too sleepy to receive ultrasound. She is no longer currently bleeding. - Lab Interpretations Lab Results: 05/08/17 23:00 05/08/17 23:00 Lab Results 05/08/17 23:00: Sodium 140, Potassium 3.7, Chloride 108 H, Carbon Dioxide 28, Anion Gap 8 L, BUN 14, Creatinine 0.7, Est GFR ( Amer) > 60, Est GFR (Non -Af Amer) > 60, Random Glucose 100, Calcium 8.8, Total Bilirubin 0.2, AST 25, ALT 20, Alkaline Phosphatase 54, Total Protein 6.3, Albumin 3.5, Globulin 2.8, Albumin/Globulin Ratio 1.3 05/08/17 23:00: WBC 6.9 D, RBC 4.01, Hgb 12.1 D, Hct 35.6 L, MCV 88.8 D, MCH 30.2, MCHC 34.0, RDW 14.1, Plt Count 317, MPV 10.7, Gran % 49.9 L, Lymph % (Auto ) 42.0 H, [place] % (Auto) 5.8, Eos % (Auto) 2.0, Baso % (Auto) 0.3, Gran # 3.42, Lymph # 2.9, [place] # 0.4, Eos # 0.1, Baso # 0.02 05/08/17 22:35: Urine Color Yellow, Urine Appearance Clear, Urine pH 7.0, Ur Specific [place] 1.020, Urine Protein Negative, Urine Glucose (UA) Negative, Urine Ketones Negative, Urine Blood Moderate H, Urine Nitrate Negative, Urine Bilirubin Negative, Urine Urobilinogen 0.2, Ur Leukocyte Esterase Negative, Urine RBC 5 - 10, Urine WBC 1 - 3, Ur Epithelial Cells 3 - 4, Urine Bacteria Mod , Urine HCG, Qual Negative - RAD Interpretation Radiology Orders: 05/08/17 22:25 TRANSVAGINAL [US] Stat - Medication Orders Current Medication Orders: Discontinued Medications Sodium Chloride (Sodium Chloride 0.9%) 1,000 mls @ 1,000 mls/hr IV .Q1H STA Stop: 05/08/17 23:24 Last Admin: 05/08/17 23:20 Dose: 1,000 mls/hr eMAR Start Stop Document 05/08/17 23:20 HI (Rec: 05/08/17 23:20 [place] [facility] [id number][place] Intravenous Solution Start Date 05/08/17 Start Time 23:20 Morphine Sulfate (Morphine) 4 mg IVP STAT STA Stop: 05/08/17 22:26 Last Admin: 05/08/17 23:20 Dose: Not Given Non-Admin Reason: Patient Lethargic Disposition/Present on Arrival - Present on Arrival Any Indicators Present on Arrival: No History of DVT/PE: No History of Uncontrolled Diabetes: No Urinary Catheter: No History of Decub. Ulcer: No History Surgical Site Infection Following: None - Disposition Have Diagnosis and Disposition been Completed?: Yes Diagnosis: Dysfunctional uterine bleeding Disposition: RELEASED IN [employer] Disposition Time: 01:27 Patient Plan: Discharge Patient Problems: Current Active Problems Problem Status Onset Dysfunctional uterine bleeding Acute Condition: CRITICAL Discharge Instructions (ExitCare): Dysfunctional Uterine Bleeding (ED) Print Language: JAPANESE Additional Instructions: please follow up with your [facility] chemist at your earliest. OPlease return if you experience dizziness/cp or you begin bleeding trhough more than 3 pads/hour x 2 hours consecutively . Forms: [employer] (Jordanian)
[2017-05-08 22:56] LABS: URINE APPEARANCE CLEAR (CLEAR); URINE COLOR YELLOW (YELLOW)
[2017-05-08 23:18] LABS: URINE BACTERIA MOD (NEG)
[2017-05-08 23:32] LABS: BASO # 0.02 K/mm3 (0.0-2.0); BASO % 0.3 % (0.0-3.0); EOS # 0.1 (0.0-0.7); GRAN # 3.42 (1.4-6.5); GRAN % 49.9 % (50.0-68.0); HEMATOCRIT 35.6 % (36.0-48.0); LYMPH # 2.9 (1.2-3.4); MEAN CELL VOLUME 88.8 fl (80.0-105.0); MEAN CORPUSCULAR HEMOGLOBIN 30.2 pg (25.0-35.0); MEAN PLATELET VOLUME 10.7 fl (7.0-11.0); MONO # 0.4 (0.1-0.6); MONO % 5.8 % (1.0-6.0); RED CELL DISTRIBUTION WIDTH 14.1 % (11.5-14.5); WHITE BLOOD COUNT 6.9 10^3/ul (4.5-11.0)
[2017-05-08 23:41] LABS: ALB/GLOB RATIO 1.3 (1.1-1.8); ALKALINE PHOSPHATASE 54 U/L (38-126); ALT/SGPT 20 U/L (7-56); AST/SGOT 25 U/L (14-36); BILIRUBIN,TOTAL 0.2 mg/dL (0.2-1.3); BLOOD UREA NITROGEN 14 mg/dL (7-21); CALCIUM 8.8 mg/dL (8.4-10.5); CARBON DIOXIDE 28 mmol/L (21-33); CHLORIDE 108 mmol/L (98-107); GFR AFRICAN-AMERICAN > 60; GLUCOSE,RANDOM 100 mg/dL (70-110); POTASSIUM 3.7 mmol/L (3.6-5.0); SODIUM 140 mmol/L (132-148); TOTAL PROTEIN 6.3 g/dL (5.8-8.3)
--- NOTE | 2017-05-09 01:13 | US ---
EXAM: US Pelvis, transabdominal CLINICAL HISTORY: 32 years old, female; Pain; Pelvic pain; Additional info: Dysfxnal uterine bleeding, examine endometrial str TECHNIQUE: Real-time transabdominal pelvic ultrasound (complete) with image documentation. Transvaginal imaging was attempted, but unsuccessful secondary to patient tolerance. COMPARISON: US - OB TRANSVAGINAL 2017-03-08 20:05 FINDINGS: Uterus/cervix: Unremarkable in echogenicity and size measuring 7.1 x 3.0 x 4.3 cm. Normal endometrial stripe thickness, measuring 10 mm. No myometrial mass. Right ovary: Unremarkable in echogenicity and size measuring 3.2 x 2.6 x 2.0 cm. No mass. Normal blood flow. Left ovary: Increased in size measuring 3.7 x 3.4 x 2.7 cm. An focus of decreased echogenicity is identified within the left ovary measuring 3.2 x 1.8 x 2.5 cm, statistically a cyst. No solid mass. Normal blood flow. Free fluid: No free fluid. IMPRESSION: Indeterminate focus within the left ovary, for which short-term followup is recommended. Normal endometrial stripe thickness.
[2017-05-09 03:34] VITALS: BP 106/72; PULSE 72; RESP 18; TEMP 98; O2SAT 99
== END 2017-05-09 03:35 | disposition home or self-care (01) ==
LOC: ED 21:46
DX: N93.8 Other specified abnormal uterine and vaginal bleeding (principal); F17.210 Nicotine dependence, cigarettes, uncomplicated; I10 Essential (primary) hypertension; Z88.0 Allergy status to penicillin
CPT/HCPCS: 76830; 80053; 81001; 84703; 85025; 87086; 99285; J7040

== ENCOUNTER 2017-08-05 17:47 | Emergency (ER) | payer OTHER ==
[2017-08-05 17:48] VITALS: BMI 38.9
--- NOTE | 2017-08-05 18:33 | ED PDOC ---
Arrival/HPI - General Chief Complaint: Seizure Time Seen by Provider: 08/05/17 18:02 Historian: Patient, Spouse - History of Present Illness Narrative History of Present Illness (Text): CC: seizure HPI 32 F with pmh Asthma, atrophic kidney, psychogenic non epileptic seizure disorder, anxiety and bipolar disorder presents to ED for witnessed seizure by friend. Patient's is at bedside stating patient seized 5 times last night. Patient is sleeping now. Patient's states that patient has history of seizures, bipolar disorder and insomnia. Patient also has one working kidney ( right) due to left adrenal mass resection. Patient hasn't been sleeping or eating well. Patient's states patient takes lamictal and clonipine which normally helps but patient has been stressed out due to family-like figure and insomnia. Per patient normally seizes full body with hands curling body shaking per . Per , no incontinence or loss of bowel movements, vomiting. states both patient and gets seizures, have bipolar disorder as well. PMH - Asthma, anxiety, atrophic kidney disease, left. psychogenic non-epileptic seizure disorder, asthma, bipolar disorder PSH - left adrenal mass removal, nonmalignant. cholecystecomy (10yrs ago) Social history - Currently unemployed, 1 to 1.5 ppd x 15 years tobacco use. denies etoh use. Admits to marijuanna use. Family history: Aunt in her 30s from [place], mother has epilepsy. Allergies- PCN, Phenytoin, almond 08/05/17 21:08 Patient revisited. Patient is more awake now. Patient is explaining her stressors in life. They tried to seek counseling at [facility] but she was kicked out due to missing appointment for her surgery to remove the left adrenal mass, the counselor was sick one day, etc. Patient and are supportive of each other and patient does not plan to hurt herself or others. Past Medical History - Infectious Disease Hx of Infectious Diseases: None - Tetanus Immunization Tetanus Immunization: Up to Date, Unknown - Cardiac Hx Cardiac Disorders: Yes Hx [place]: No Hx Hypertension: Yes Other/Comment: [place] - Pulmonary Hx Respiratory Disorders: Yes Hx Asthma: Yes Hx Bronchitis: Yes - Neurological Hx Neurological Disorder: Yes Hx Migraine: Yes Hx Seizures: Yes - HEENT Hx HEENT Disorder: Yes Hx Epistaxis: Yes - Renal Hx Renal Disorder: Yes Hx Pyelonephritis: Yes Other/Comment: Claims that righy kidney is not functional. - Endocrine/Metabolic Hx Endocrine Disorders: Yes Other/Comment: h/o adrenal mass - Hematological/Oncological Hx Blood Disorders: Yes Hx Cancer: Yes (cervix ca) - Integumentary Hx Dermatological Disorder: No - Musculoskeletal/Rheumatological Hx Musculoskeletal Disorders: Yes Hx Falls: Yes - Gastrointestinal Hx Gastrointestinal Disorders: Yes Hx Gastroesophageal Reflux: Yes - Genitourinary/Gynecological Hx Genitourinary Disorders: Yes Hx Cervical Cancer: Yes (Had cone bx done) Hx Urinary Tract Infection: Yes - Psychiatric Hx Psychophysiologic Disorder: Yes (On seroquel.) Hx Bipolar Disorder: Yes Hx Substance Use: Yes - Past Surgical History Past Surgical History: No Previous - Surgical History Hx Cholecystectomy: Yes Hx Dilation and Curettage: Yes Other/Comment: adrenal removal on 03/07. - Anesthesia Hx Anesthesia: Yes Hx Anesthesia Reactions: Yes (states she woke up during surgeries) Hx Malignant Hyperthermia: No - Suicidal Assessment Feels Threatened In Home Enviroment: No Family/Social History - Physician Review Nursing Documentation Reviewed: Yes Family/Social History: Unknown Family HX Smoking Status: Heavy Smoker > 10 Cigarettes Daily Hx Alcohol Use: No Hx Substance Use: Yes Substance used: Marijuana Hx Substance Use Treatment: No Allergies/Home Meds Allergies/Adverse Reactions: Allergies almond Allergy (Verified 08/05/17 18:03) ANAPHYLAXIS almond oil Allergy (Verified 08/05/17 18:03) ANAPHYLAXIS Penicillins Allergy (Verified 08/05/17 18:03) ANAPHYLAXIS phenytoin Allergy (Verified 08/05/17 18:03) RASH Home Medications: Home Meds Medication Instructions Recorded Confirmed Albuterol HFA [Ventolin HFA 90 0.09 mg IH PRN PRN 02/16/12 08/05/17 mcg/actuation (8 g)] Lamotrigine [Lamictal] 200 mg PO HS 02/16/12 08/05/17 Montelukast [Singulair] 10 mg PO DAILY 02/16/12 08/05/17 Albuterol 0.5% [Albuterol 0.5% 2.5 mg IH QID 05/04/13 08/05/17 Inhal Wendy (2.5 mg/0.5 ml) UD] Lansoprazole [Prevacid] 20 mg PO DAILY 05/04/13 08/05/17 QUEtiapine [Seroquel XR] 100 mg PO TID 01/31/14 08/05/17 QUEtiapine [Seroquel XR] 200 mg PO HS 01/31/14 08/05/17 clonazePAM [Klonopin] 1 mg PO TID 01/31/14 08/05/17 Baclofen 20 mg PO TID 03/11/16 08/05/17 Cyanocobalamin [Vitamin B12 1000 1,000 mcg PO DAILY 03/11/16 08/05/17 mcg Tab] Naproxen [Naprosyn] 500 mg PO BID 03/11/16 08/05/17 Zolpidem [Ambien] 10 mg PO HS 03/11/16 08/05/17 hydrOXYzine Pamoate [Vistaril] 50 mg PO BID 03/11/16 08/05/17 Review of Systems - Review of Systems Systems not reviewed;Unavailable: Other (Patient sleeping at time of visit. Not arousable, but explaining history at bedsides. vitals stable) Physical Exam Vital Signs Reviewed: Yes Temperature: Afebrile Blood Pressure: Normal Pulse: Regular Respiratory Rate: Normal Appearance: Positive for: Comfortable Pain Distress: None Mental Status: Positive for: other (patient is snoring) - Systems Exam Head: Present: Atraumatic, Normocephalic Nose (External): Present: Atraumatic Nose (Internal): Present: Normal Inspection Neck: Present: Normal Range of Motion. No: JVD, Lymphadenopathy Respiratory/Chest: Present: Clear to Auscultation, Good Air Exchange. No: Respiratory Distress, Accessory Muscle Use Cardiovascular: Present: Regular Rate and Rhythm, Normal S1, S2 Abdomen: Present: Distention, Normal Bowel Sounds. No: Tenderness, Peritoneal Signs Medical Decision Making ED Course and Treatment: EKG ordered 08/05/17 21:10 re-evaluate 08/05/17 21:08 Patient revisited. Patient is more awake now. Patient is explaining her stressors in life. They tried to seek counseling at [facility] but she was kicked out due to missing appointment for her surgery to remove the left adrenal mass, the counselor was sick one day, etc. Patient and are supportive of each other and patient does not plan to hurt herself or others. Patient continues to be lethargic but is able to answer questions. 08/05/17 21:10 08/05/17 21:11 Re-evaluation Time: 21:10 Reassessment Condition: Improved - EKG Interpretation Interpreted by ED Physician: Yes Type: 12 lead EKG Disposition/Present on Arrival - Present on Arrival Any Indicators Present on Arrival: No History of DVT/PE: No History of Uncontrolled Diabetes: No Urinary Catheter: No History of Decub. Ulcer: No History Surgical Site Infection Following: None - Disposition Have Diagnosis and Disposition been Completed?: Yes Diagnosis: Pseudoseizure Disposition: HOME/ ROUTINE Disposition Time: 21:12 Patient Plan: Discharge Patient Problems: Current Active Problems Problem Status Onset Pseudoseizure Acute Condition: FAIR Print Language: INDONESIAN Forms: [employer] ([place] Citizen)
[2017-08-05 21:34] VITALS: RESP 16
[2017-08-05 21:36] VITALS: BP 103/70; PULSE 80; TEMP 98.6; O2SAT 100
--- NOTE | 2017-08-06 11:01 | CARD ---
APPROVED REPORT EKG Measurement Heart [id number] <Conclusion> Sinus rhythm PRWP V 1 - 3. Could be lead positioning. Prolonged QTc
== END 2017-08-05 21:36 | disposition home or self-care (01) ==
LOC: ED 17:47
DX: F44.5 Conversion disorder with seizures or convulsions (principal); I10 Essential (primary) hypertension; F17.210 Nicotine dependence, cigarettes, uncomplicated

== ENCOUNTER 2017-08-11 11:27 | Inpatient (IN) | payer OTHER ==
--- NOTE | 2017-08-11 12:07 | ED PDOC ---
Arrival/HPI - General Chief Complaint: Seizure Time Seen by Provider: 08/11/17 12:03 Historian: Patient, Spouse () - History of Present Illness Narrative History of Present Illness (Text): 08/11/17 12:05 A 32 year old female, whose past medical history includes Asthma, atrophic kidney, psychogenic non epileptic seizure disorder, anxiety and bipolar disorder , presents to the emergency department complaining of multiple episodes of seizures beginning last week and worsening today. Patient reports having 3 seizures at home and 3 seizures while in the ambulance. pt states + diffuse headaches, + left shoulder pain (from ? post seizure fall last week). Pt states prior to ED arrival, during one of her seizures, she may have fallen and hit her head; pt states headache currently is severe, no nausea/vomiting, no fever/ chills/sweats, no cp/sob/palpitations, no abd pain, no numbness/tingling, no urinary/bowel changes, no incontinence noted; no rashes, pt denied other complaints pt is here for further eval pt was seen in the ED ~ 6 days ago due to her seizures and was treated in the ED and discharged home pt states she is due to see Dr Beck today at 2pm in his office pt is right hand dominate denied slurr speech denied focal weakness as per spouse no vision changes noted PMD: Dr. Tamar Leary 08/12/17 14:14 Time/Duration: Prior to Arrival Symptom Onset: Sudden Symptom Course: Unchanged Severity Level: 7, Severe Context: Home Past Medical History - Provider Review Nursing Documentation Reviewed: Yes - Travel History Have you recently traveled outside [place] w/in the past 3 mons?: No - Past History Past History: No Previous - Infectious Disease Hx of Infectious Diseases: None - Tetanus Immunization Tetanus Immunization: Up to Date, Unknown - Cardiac Hx Cardiac Disorders: Yes Hx AK: No Hx Hypertension: Yes Other/Comment: AK - Pulmonary Hx Respiratory Disorders: Yes Hx Asthma: Yes Hx Bronchitis: Yes - Neurological Hx Neurological Disorder: Yes Hx Migraine: Yes Hx Seizures: Yes - HEENT Hx HEENT Disorder: Yes Hx Epistaxis: Yes - Renal Hx Renal Disorder: Yes Hx Pyelonephritis: Yes - Endocrine/Metabolic Hx Endocrine Disorders: Yes Other/Comment: h/o adrenal mass - Hematological/Oncological Hx Blood Disorders: Yes Hx Cancer: Yes (cervix ca) - Integumentary Hx Dermatological Disorder: No - Musculoskeletal/Rheumatological Hx Musculoskeletal Disorders: Yes Hx Falls: Yes - Gastrointestinal Hx Gastrointestinal Disorders: Yes Hx Gastroesophageal Reflux: Yes - Genitourinary/Gynecological Hx Genitourinary Disorders: Yes Hx Cervical Cancer: Yes Hx Urinary Tract Infection: Yes - Psychiatric Hx Psychophysiologic Disorder: Yes Hx Bipolar Disorder: Yes Hx Substance Use: Yes - Past Surgical History Past Surgical History: No Previous - Surgical History Hx Cholecystectomy: Yes Hx Dilation and Curettage: Yes Other/Comment: adrenal removal on 03/07. - Anesthesia Hx Anesthesia: Yes Hx Anesthesia Reactions: Yes (states she woke up during surgeries) Hx Malignant Hyperthermia: No - Suicidal Assessment Feels Threatened In Home Enviroment: No Family/Social History - Physician Review Nursing Documentation Reviewed: Yes Family/Social History: No Known Family HX Smoking Status: Heavy Smoker > 10 Cigarettes Daily Hx Alcohol Use: No Hx Substance Use: Yes Substance used: Marijuana Route: Smoking/Inhalation Hx Substance Use Treatment: No Allergies/Home Meds Allergies/Adverse Reactions: Allergies almond Allergy (Verified 08/11/17 14:18) ANAPHYLAXIS almond oil Allergy (Verified 08/11/17 14:18) ANAPHYLAXIS Penicillins Allergy (Verified 08/11/17 14:18) ANAPHYLAXIS phenytoin Allergy (Verified 08/11/17 14:18) RASH levetiracetam [From [facility]] Adverse Reaction (Intermediate, Verified 08/11/17 15 :43) FATIGUE Extreme mood swing Home Medications: Home Meds Medication Instructions Recorded Confirmed Albuterol HFA [Ventolin HFA 90 0.09 mg IH PRN PRN 02/16/12 08/11/17 mcg/actuation (8 g)] Lamotrigine [Lamictal] 200 mg PO HS 02/16/12 08/11/17 Montelukast [Singulair] 10 mg PO DAILY 02/16/12 08/11/17 Albuterol 0.5% [Albuterol 0.5% 2.5 mg IH QID 05/04/13 08/11/17 Inhal Wendy (2.5 mg/0.5 ml) UD] QUEtiapine [Seroquel XR] 100 mg PO TID 01/31/14 08/11/17 QUEtiapine [Seroquel XR] 200 mg PO HS 01/31/14 08/11/17 clonazePAM [Klonopin] 1 mg PO TID 01/31/14 08/11/17 Baclofen 20 mg PO TID 03/11/16 08/11/17 Cyanocobalamin [Vitamin B12 1000 1,000 mcg PO DAILY 03/11/16 08/11/17 mcg Tab] Naproxen [Naprosyn] 500 mg PO BID 03/11/16 08/11/17 Zolpidem [Ambien] 10 mg PO HS 03/11/16 08/11/17 hydrOXYzine Pamoate [Vistaril] 50 mg PO BID 03/11/16 08/11/17 Review of Systems - Physician Review All systems were reviewed & negative as marked: Yes - Review of Systems Constitutional: Normal, Other (head trauma to pavement outside) Eyes: Normal ENT: Normal Respiratory: Normal Cardiovascular: Normal Gastrointestinal: Normal Genitourinary Female: Normal Musculoskeletal: Normal Skin: Normal Neurological: Headache, Seizure Endocrine: Normal Hemo/Lymphatic: Normal Psychiatric: Normal Physical Exam - Physical Exam Physical Exam Limitations: Altered Mental Status Vital Signs Reviewed: Yes Vital Signs Pulse Resp BP Pulse Ox 08/11/17 14:28 72 18 139/66 100 08/11/17 12:00 85 18 156/79 H 100 Temperature: Afebrile Blood Pressure: Hypertensive Pulse: Regular Respiratory Rate: Normal Appearance: Positive for: Well-Appearing, Uncomfortable, Other (NAD, uncomfortable, resting in bed, alert/awake, GCS = 15, oriented x 3, cooperative , follows commands with ease) Pain Distress: None Mental Status: Positive for: Alert and Oriented X 3 - Systems Exam Head: Present: Atraumatic, Normocephalic Pupils: Present: PERRL Extroacular Muscles: Present: EOMI Conjunctiva: Present: Normal Ears: Present: Normal Mouth: Present: Moist Mucous Membranes, Other (fair dentitions, no tongue lacerations/abrasions noted, uvula/tongue are midline, no drooling/stridor; no dysphonia) Pharnyx: Present: Normal Nose (External): Present: Atraumatic Nose (Internal): Present: Normal Inspection Neck: Present: Normal Range of Motion, Trachea Midline, Other (no step off, intact ROM, no nuchal rigidity, no meningeal signs). No: MIDLINE TENDERNESS Respiratory/Chest: Present: Clear to Auscultation, Good Air Exchange. No: Respiratory Distress, Accessory Muscle Use Cardiovascular: Present: Regular Rate and Rhythm, Normal S1, S2. No: Murmurs Abdomen: Present: Normal Bowel Sounds, Other (well nourished female, no focal tenderness, no de santiago's sign, no mcburney's point tenderness, no masses/rebound/ guarding/rigidity). No: Tenderness, Distention, Peritoneal Signs Back: Present: Normal Inspection. No: CVA Tenderness Upper Extremity: Present: Normal Inspection, Normal ROM, NORMAL PULSES, Neurovascularly Intact, Capillary Refill < 2s. No: Cyanosis, Edema Lower Extremity: Present: Normal Inspection, NORMAL PULSES, Normal ROM, Neurovascularly Intact, Capillary Refill < 2 s. No: Edema Neurological: Present: GCS=15, CN II-XII Intact, Speech Normal Skin: Present: Warm, Dry, Normal Color. No: Rashes Psychiatric: Present: Alert, Oriented x 3, Normal Insight, Normal Concentration Medical Decision Making ED Course and Treatment: 08/11/17 12:16 Impression 32 year old female with seizure. Plan: -- EKG -- Head CT -- Left Shoulder X-Ray -- Keppra -- Ativan -- IV Fluids -- Labs -- Urinalysis -- Reassess and disposition Prior Visits: Notes and results from previous visits were reviewed. Patient was last seen in the emergency department on 08/05/2017 for witnessed seizure (5 episodes). Patient was d/c home. Progress Notes: 08/11/2017 12:[address] Beck, whom agrees with emergency department management and treatment. Recommends patient be given Keppra 500 mg BID. Also recommends patient be seen in his office, or if patient is to be admitted, will stop by to see patient. 08/11/2017 12:19 Patient had a 2nd witnessed 30-second seizure-like movements here in the ER. 08/11/17 12:[address] Ugarte and has been made aware of patient's medical presentation. Agrees with admission. 08/11/17 12:37 Patient had another witnessed seizure while in the ER, generalized tonic-clonic movement, lasting 15-30sec; no post-ictal lag time is noted; pt awakes almost immediately post seizure and is able to conversate 08/12/17 14:21 in total, while pt is in the ED, noted 5 successive seizure-like movements pt/spouse are made aware of pt's medical results agrees with admission Re-evaluation Time: 14:30 Reassessment Condition: Improving,but remains with symptoms - Critical Care Critical Care Minutes: 45 minutes Critical Care Time: Excluding Proc Time Narrative Critical Care (Text): 08/12/17 14:01 critical care time: 45min, excluding procedure time, excluding time teaching residents/students/mid-level providers; including initial eval/diagnosis, diagnostic interpretation, re-eval, consultations, final disposition - Lab Interpretations Lab Results: 08/11/17 11:30 08/11/17 11:30 Lab Results 08/11/17 11:30: Magnesium 1.8 08/11/17 11:30: Total Creatine Kinase 78 08/11/17 11:30: Sodium 140, Potassium 3.4 L, Chloride 105, Carbon Dioxide 20 L, Anion Gap 19, BUN 12, Creatinine 0.7, Est GFR ( Amer) > 60, Est GFR (Non- Af Amer) > 60, Random Glucose 79, Calcium 9.6, Total Bilirubin 0.6, AST 29, ALT 26, Alkaline Phosphatase 42, Total Protein 7.8, Albumin 4.4, Globulin 3.3, Albumin/Globulin Ratio 1.3 08/11/17 11:30: WBC 10.8 D, RBC 4.89, Hgb 14.9 D, Hct 45.0, MCV 92.0 D, MCH 30.5, MCHC 33.1, RDW 14.1, Plt Count 347, MPV 12.1 H, Gran % 70.7 H, Lymph % ( Auto) 22.5, [place] % (Auto) 5.4, Eos % (Auto) 0.9 L, Baso % (Auto) 0.5, Gran # 7.66 H, Lymph # 2.4, [place] # 0.6, Eos # 0.1, Baso # 0.05 I have reviewed the lab results: Yes Interpretation: Abnormal lab values (+ UTOX) - RAD Interpretation Radiology Orders: 08/11/17 12:03 HEAD W/O CONTRAST [CT] Stat 08/11/17 12:06 CHEST TWO VIEWS (PA/LAT) [RAD] Stat SHOULDER LEFT [RAD] Stat COMPARISON: Noncontrast head CT performed 12/11/16 TECHNIQUE: Axial computed tomography images were obtained through the head/brain without intravenous contrast. Radiation dose: Total exam DLP = 953.26 mGy-cm. This CT exam was performed using one or more of the following dose reduction techniques: Automated exposure control, adjustment of the mA and/or kV according to patient size, and/or use of iterative reconstruction technique. FINDINGS: HEMORRHAGE: No intracranial hemorrhage. BRAIN: No mass effect or edema. The donnelly-white matter differentiation appears intact. Please note that MRI with diffusion imaging is more sensitive in the detection of acute ischemic event. VENTRICLES: No hydrocephalus. CALVARIUM: Unremarkable. PARANASAL SINUSES: Extensive opacification of the partially imaged left maxillary sinus. MASTOID AIR CELLS: Unremarkable as visualized. No inflammatory changes. OTHER FINDINGS: None. IMPRESSION: No acute intracranial pathology identified. Extensive opacification of the partially imaged left maxillary sinus. Correlate clinically for possibility of sinusitis. CXR: HISTORY: COMPARISON: 04/26/2016. TECHNIQUE: Chest PA and lateral FINDINGS: LINES AND TUBES: None. LUNG AND PLEURA: The lungs are well inflated and clear. HEART AND MEDIASTINUM: The heart is not enlarged. The hilar and mediastinal contours are within normal limits. SKELETAL STRUCTURES: The bony structures are within normal limits for the patient's age. VISUALIZED UPPER ABDOMEN: Normal. OTHER FINDINGS: None. IMPRESSION: No acute findings. left shoulder: HISTORY: left shoulder pain, s/p fall/seizure 1 week ago COMPARISON: No prior. FINDINGS: BONES: Bone alignment and mineralization are normal. There is no acute displaced fracture or bone destruction. JOINTS: Normal. Glenohumeral and acromioclavicular joints preserved. No osteoarthritis. SOFT TISSUES: Normal. OTHER FINDINGS: None. IMPRESSION: No acute fracture or dislocation. Inventory Checker: Radiologist - EKG Interpretation EKG Interpretation (Text): 08/12/17 14:10 Sinus rhythm at 75 bpm with 1st degree av block, normal axis, no ectopy, inverted T in leads V1-2, no st changes, BORDERLINE EKG; unchanged compare with old ekg 07/201708/12/17 14:13 Interpreted by ED Physician: Yes Type: 12 lead EKG Comparison: Similar to previous EKG - Medication Orders Current Medication Orders: Acetaminophen (Tylenol 325mg Tab) 650 mg PO Q6H PRN PRN Reason: Headache Last Admin: 08/12/17 07:56 Dose: 650 mg Albuterol Sulfate (Albuterol 0.5% Inhal Wendy (2.5 Mg/0.5 Ml) Ud) 2.5 mg IH QID [facility] Last Admin: 08/12/17 13:23 Dose: 2.5 mg Albuterol Sulfate (Albuterol 0.083% Inhal Wendy (2.5 Mg/3 Ml) Ud) 2.5 mg IH [id number] PRN PRN Reason: Shortness of Breath Clonazepam (Klonopin) 1 mg PO TID ROBERTO PRN Reason: Protocol Last Admin: 08/12/17 13:09 Dose: Cyanocobalamin (Vitamin B12 1000 Mcg Tab) 1,000 mcg PO DAILY [facility] Last Admin: 08/12/17 11:58 Dose: 1,000 mcg Fluoxetine HCl (Prozac) 20 mg PO DAILY [facility] Last Admin: 08/12/17 11:58 Dose: 20 mg Heparin Sodium (Porcine) (Heparin) 5,000 units SC Q12 ROBERTO PRN Reason: Protocol Last Admin: 08/12/17 11:56 Dose: 5,000 units Subcutaneous Administrations Document 08/12/17 11:56 CD (Rec: 08/12/17 11:56 CD [id number]) Injection Site MAR Injection Site Right Arm Charges for Administration # of Subcutaneous Administrations 1 Hydroxyzine Pamoate (Vistaril) 50 mg PO BID [facility] PRN Reason: Protocol Last Admin: 08/12/17 11:58 Dose: 50 mg Behavioural Document 08/12/17 11:58 CD (Rec: 08/12/17 11:58 CD [id number]) Maintenance Maintenance Dose Yes Sodium Chloride (Sodium Chloride 0.9%) 1,000 mls @ 100 mls/hr IV .Q10H [facility] Last Admin: 08/12/17 08:34 Dose: Lamotrigine (Lamictal) 200 mg PO HS [facility] Last Admin: 08/11/17 21:18 Dose: 200 mg Behavioural Document 08/11/17 21:18 FDE (Rec: 08/11/17 21:18 FDE [id number]) Maintenance Maintenance Dose Yes Nonmedicinal Nonmedicinal Interventions Redirect Behavior Behavior for Medication: Anxiety Dangers to self/others Insomnia Lamotrigine (Lamictal) 100 mg PO DAILY [facility] PRN Reason: Protocol Last Admin: 08/12/17 11:58 Dose: 100 mg Behavioural Document 08/12/17 11:58 CD (Rec: 08/12/17 11:58 CD [id number]) Maintenance Maintenance Dose Yes Montelukast Sodium (Singulair) 10 mg PO DAILY [facility] Last Admin: 08/12/17 11:58 Dose: 10 mg Pantoprazole Sodium (Protonix Ec Tab) 40 mg PO 0600 [facility]ERT[facility] Last Admin: 08/12/17 05:08 Dose: 40 mg Quetiapine Fumarate (Seroquel Xr) 100 mg PO TID [facility]ERTO PRN Reason: Protocol Last Admin: 08/12/17 13:09 Dose: Quetiapine Fumarate (Seroquel Xr) 200 mg PO HS [facility]ERTO PRN Reason: Protocol Last Admin: 08/11/17 21:18 Dose: 200 mg Behavioural Document 08/11/17 21:18 FDE (Rec: 08/11/17 21:18 FDE [facility] [id number]) Maintenance Maintenance Dose Yes Nonmedicinal Nonmedicinal Interventions Redirect Behavior Behavior for Medication: Anxiety Insomnia Re-Assess: Reassess Psych Meds Document 08/11/17 22:18 FDE (Rec: 08/12/17 00:07 FDE [facility] [id number]) Reassess Psych Med Effective Tizanidine HCl (Zanaflex) 4 mg PO Q6 PRN PRN Reason: Pain, moderate (4-7) Last Admin: 08/12/17 11:58 Dose: 4 mg Discontinued Medications Albuterol/Ipratropium (Duoneb 3 Mg/0.5 Mg (3 Ml) Ud) 3 ml IH Q6 PRN PRN Reason: Shortness of Breath Stop: 08/12/17 06:01 Levetiracetam 1,000 mg/ Sodium (Chloride) 110 mls @ 440 mls/hr IV ONCE ONE Stop: 08/11/17 12:53 Last Admin: 08/11/17 13:20 Dose: 440 mls/hr eMAR Start Stop Document 08/11/17 13:20 SF (Rec: 08/11/17 13:20 SF [id number]) Intravenous Solution Start Date 08/11/17 Start Time 13:20 End Date 08/11/17 End time 13:35 Total Infusion Time 15 Lorazepam (Ativan) 2 mg IVP ONCE ONE PRN Reason: Protocol Stop: 08/11/17 12:06 Last Admin: 08/11/17 12:11 Dose: Lorazepam (Ativan) 2 mg IVP ONCE ONE PRN Reason: Protocol Stop: 08/11/17 12:16 Last Admin: 08/11/17 12:21 Dose: 2 mg IVP Administration Document 08/11/17 12:21 SF (Rec: 08/11/17 12:21 SF [id number]) Charges for Administration # of IVP Administrations 1 Lorazepam (Ativan) 2 mg IVP ONCE ONE PRN Reason: Protocol Stop: 08/11/17 12:39 Last Admin: 08/11/17 12:48 Dose: 2 mg IVP Administration Document 08/11/17 12:48 SF (Rec: 08/11/17 12:48 SF [id number]) Charges for Administration # of IVP Administrations 1 Pneumococcal Polyvalent Vaccine (Pneumovax 23 Vaccine) 0.5 ml IM .ONCE ONE Stop: 08/11/17 16:20 Potassium Chloride (K-Dur 20 Meq Er Tab) 40 meq PO STAT STA Stop: 08/11/17 15:11 Last Admin: 08/11/17 17:18 Dose: 40 meq - Scribe Statement The provider has reviewed the documentation as recorded by the Meka Redman Provider Scribe Attestation: All medical record entries made by the Elviraibxin were at my direction and personally dictated by me. I have reviewed the chart and agree that the record accurately reflects my personal performance of the history, physical exam, medical decision making, and the department course for this patient. I have also personally directed, reviewed, and agree with the discharge instructions and disposition. Disposition/Present on Arrival - Present on Arrival Any Indicators Present on Arrival: No History of DVT/PE: No History of Uncontrolled Diabetes: No Urinary Catheter: No History of Decub. Ulcer: No History Surgical Site Infection Following: None - Disposition Have Diagnosis and Disposition been Completed?: Yes Diagnosis: Status epilepticus Disposition: HOSPITALIZED Disposition Time: 12:34 Patient Plan: Admission Patient Problems: Current Active Problems Problem Status Onset Status epilepticus Acute Condition: STABLE
[2017-08-11 12:15] LABS: BASO # 0.05 K/mm3 (0.0-2.0); BASO % 0.5 % (0.0-3.0); EOS # 0.1 (0.0-0.7); EOS % 0.9 % (1.5-5.0); GRAN # 7.66 (1.4-6.5); GRAN % 70.7 % (50.0-68.0); HEMOGLOBIN 14.9 g/dL (12.0-16.0); LYMPH # 2.4 (1.2-3.4); LYMPH % 22.5 % (22.0-35.0); MEAN CORPUSCULAR HEMOGLOBIN 30.5 pg (25.0-35.0); MEAN CORPUSCULAR HGB CONC 33.1 g/dl (31.0-37.0); MEAN PLATELET VOLUME 12.1 fl (7.0-11.0); MONO # 0.6 (0.1-0.6); MONO % 5.4 % (1.0-6.0); RBC 4.89 10^6/uL (3.5-6.1); RED CELL DISTRIBUTION WIDTH 14.1 % (11.5-14.5); WHITE BLOOD COUNT 10.8 10^3/ul (4.5-11.0)
[2017-08-11] MEDS: Sodium Chloride 0.9% 1,000 ML IV SCH (12:22)
[2017-08-11 12:25] LABS: ALB/GLOB RATIO 1.3 (1.1-1.8); ALBUMIN 4.4 g/dL (3.0-4.8); ALT/SGPT 26 U/L (7-56); AST/SGOT 29 U/L (14-36); BLOOD UREA NITROGEN 12 mg/dL (7-21); CALCIUM 9.6 mg/dL (8.4-10.5); GFR AFRICAN-AMERICAN > 60; GFR NON-AFRICAN AMERICAN > 60
[2017-08-11] MEDS ORDERED: levETIRAcetam 1,000 MG in Sodium Chloride 0.9% 100 ML IV ONE (12:39)
--- NOTE | 2017-08-11 13:54 | CP.PCM.CON ---
<GaroHope - Last Filed: 08/11/17 15:34> History of Present Illness - History of Present Illness History of Present Illness: PGY-[address] Beck Neurology consult: Seizure, Migraine Ms Leydi Bradley, 32F, heavy smoker with PMHx Asthma, atrophic kidney, psychogenic non epileptic seizure disorder, premature heart disasese, anxiety and bipolar disorder, presents to the emergency department complaining of seizures. Patient reports having 3 seizures outside, 2 seizures in ambulance, and 1 in the ER. During seizure outside, patient hit her head on pavement. Pt was on the street talking on phone with "/girlfriend" then LOC. Pt's partner heard stuttering over the phone. Then partner rushed to the scene and found pt laying on L side with foam in mouth. Partner witness another 2 seizure on the ambulance with tonic/clonic feature Pt states recently she expreience migraine in increased frequency and severity. Pt increased her baclofen to 20mg TID to 10 times a day. She also increased naproxen 500 Bid to "much more" doses. She was off fioricet for a while. Last smoke this AM. Last use mariguana last night. Pt reported unintentional weight loss of 20 lbs since the new year with chronic feeling of nausea. Denies skipping meds. In the ED, VSS. CBC/CMP unremarkable except K 3.4 and bicarb 20. U/A neg ___Pending CK, UDS, b-hcg. ___L shoulder xray, head CT Got 1g Keppra, 6mg Ativan Pt denies any vision changes, dizziness, fever, chills, abdominal pain, vomit, urinary or bm changes. (+) HUBBARD, (+) L shoulder pain (+) wt loss. (+) nausea PMH - psychogenic non-epileptic seizure disorder CAD, heart attack when she was 19 years old at [facility] Asthma, trophic kidney disease, left. disorder, bipolar disorder, Anxiety Hx H pylori, triple antibiotics resistent, never cleared for eradication OBGYN: - 2 surgical abortions. 2 natural abortions regular menses, but not this month. 3-5 days flow LMP 06/19/2017. PSH: left adrenal mass removal, nonmalignant. cholecystecomy (10yrs ago) FH: Aunt in her 30s from [place], mother has epilepsy. SH: Live with "/girlfriend" who is biological male who is taking hormone to transform gender. 1 to 1.5 ppd x 15 years tobacco use denies etoh use. Past alcoholics Admits to marijuanna use ALL: PCN, Phenytoin, almond Med: - Seizure = Clonazepam (Klonopin) 1mg TID, Lamictal 200 HS - Ambien 10 HS - Mood/Psych meds = Quetiapine 100 TID, 100 HS, [id number] 20 daily, Hydroxyzine ? - Pain = Naproxen 500 BID, baclofen 20 TID - Lung = Montelukast 10, albuterol - B12 Review of Systems - Review of Systems All systems: reviewed and no additional remarkable complaints except Review of Systems: As in HPI Past Patient History - Infectious Disease Hx of Infectious Diseases: None - Tetanus Immunizations Tetanus Immunization: Up to Date, Unknown - Past Medical History & Family History Past Medical History?: Yes - Past Social History Smoking Status: Heavy Smoker > 10 Cigarettes Daily - CARDIAC Hx Cardiac Disorders: Yes Hx Heart Attack: No Hx Hypertension: Yes Other/Comment: [place] - PULMONARY Hx Respiratory Disorders: Yes Hx Asthma: Yes Hx Bronchitis: Yes - NEUROLOGICAL Hx Neurological Disorder: Yes Hx Migraine: Yes Hx Seizures: Yes - HEENT Hx HEENT Problems: Yes Hx Epistaxis: Yes - RENAL Hx Chronic Kidney Disease: Yes Hx Pyelonephritis: Yes - ENDOCRINE/METABOLIC Hx Endocrine Disorders: Yes Other/Comment: h/o adrenal mass - HEMATOLOGICAL/ONCOLOGICAL Hx Blood Disorders: Yes Hx Cancer: Yes (cervix ca) - INTEGUMENTARY Hx Dermatological Problems: No - MUSCULOSKELETAL/RHEUMATOLOGICAL Hx Musculoskeletal Disorders: Yes Hx Falls: Yes - GASTROINTESTINAL Hx Gastrointestinal Disorders: Yes Hx Gastroesophageal Reflux: Yes - GENITOURINARY/GYNECOLOGICAL Hx Genitourinary Disorders: Yes Hx Cervical Cancer: Yes Hx Urinary Tract Infection: Yes - PSYCHIATRIC Hx Psychophysiologic Disorder: Yes Hx Bipolar Disorder: Yes Hx Substance Use: Yes - SURGICAL HISTORY Hx Cholecystectomy: Yes Hx Dilation and Curettage: Yes Other/Comment: adrenal removal on 03/07. - ANESTHESIA Hx Anesthesia: Yes Hx Anesthesia Reactions: Yes (states she woke up during surgeries) Hx Malignant Hyperthermia: No Meds Allergies/Adverse Reactions: Allergies Allergy/AdvReac Type Severity Reaction Status Date / Time almond Allergy ANAPHYLAXIS Verified 08/11/17 14:18 almond oil Allergy ANAPHYLAXIS Verified 08/11/17 14:18 Penicillins Allergy ANAPHYLAXIS Verified 08/11/17 14:18 phenytoin Allergy RASH Verified 08/11/17 14:18 - Medications Medications: Current Medications Sodium Chloride (Sodium Chloride 0.9%) 1,000 mls @ 100 mls/hr IV .Q10H ROBERTO Last Admin: 08/11/17 12:22 Dose: 100 mls/hr Physical Exam - Constitutional Appears: No Acute Distress - Head Exam Head Exam: ATRAUMATIC, NORMAL INSPECTION, NORMOCEPHALIC - Eye Exam Eye Exam: EOMI, Normal appearance, PERRL. absent: Scleral icterus Pupil Exam: NORMAL ACCOMODATION - ENT Exam ENT Exam: Mucous Membranes Moist - Neck Exam Additional comments: supple - Respiratory Exam Respiratory Exam: Clear to Auscultation Bilateral, NORMAL BREATHING PATTERN. absent: Rales, Rhonchi, Wheezes - Cardiovascular Exam Cardiovascular Exam: REGULAR RHYTHM, +S1, +S2 - GI/Abdominal Exam GI & Abdominal Exam: Normal Bowel Sounds, Soft. absent: Rigid, Tenderness - Extremities Exam Extremities exam: Positive for: pedal pulses present. Negative for: calf tenderness, pedal edema - Neurological Exam Neurological exam: Alert, CN II-XII Intact, Oriented x3 Additional comments: Speech: fluent, no aphasia Recall: 1/3 after 5 minutes Vision: R peripheral vision decreases. Central vision decreases b/l Motor: R shoulder ROM decrease due to pain. 5/5 all extemities sensory: intact [id number] coordinaton: intact rapid-alternating movement: intact Results - Vital Signs Recent Vital Signs: Last Vital Signs Temp Pulse 85 08/11/17 12:00 Resp 18 08/11/17 12:00 BP 156/79 H 08/11/17 12:00 Pulse Ox 100 08/11/17 12:00 - Labs Result Diagrams: 08/11/17 11:30 08/11/17 11:30 Assessment & Plan - Assessment and Plan (Free Text) Plan: Ms Leydi Bradley, 32F, heavy smoker with PMHx Asthma, atrophic kidney, psychogenic non epileptic seizure disorder, premature heart disasese, anxiety and bipolar disorder, presents to the emergency department s/p 6 episodes of tonic/clonic seizures. Pt increased her baclofen to 20mg TID to 10 times a day. She also increased naproxen 500 Bid to "much more" doses. She was off fioricet for a while. Last smoke this AM. Last use mariguana last night. Pt reported unintentional weight loss of 20 lbs since the new year with chronic feeling of nausea. Vital sign stable. CBC/CMP unremarkable except K 3.4 and bicarb 20. U/A neg. Breakthrough Tonic-clonic seizure likely triggered by overdose of baclofen and Marijuana abuse in the setting of significant weight loss Allergy to Phenytoin Cannot tolerate Keppra - mood swing - neuro check q4 - seizure precautions - EEG - d/u CK, UDS, b-hcg, L shoulder xray, head CT - Continue Clonazepam (Klonopin) 1mg TID, Lamictal 200 HS for seizure prevention - Add lamictal 100 during the day Choice of med: - Hospital has Keppra, tegretol, dilantin on formulary s/r/d/w Dr. Beck <Grey Beck - Last Filed: 08/11/17 15:42> Meds - Medications Medications: Current Medications Albuterol (Ventolin Hfa 90 Mcg/Actuation (8 G)) 90 puff IH PRN PRN PRN Reason: Shortness of Breath Albuterol Sulfate (Albuterol 0.5% Inhal Wendy (2.5 Mg/0.5 Ml) Ud) 2.5 mg IH QID ROBERTO Albuterol/Ipratropium (Duoneb 3 Mg/0.5 Mg (3 Ml) Ud) 3 ml IH Q6 PRN PRN Reason: Shortness of Breath Stop: 08/12/17 06:01 Clonazepam (Klonopin) 1 mg PO TID ROBERTO PRN Reason: Protocol Cyanocobalamin (Vitamin B12 1000 Mcg Tab) 1,000 mcg PO DAILY ROBERTO Fluoxetine HCl (Prozac) 20 mg PO DAILY ROBERTO Hydroxyzine Pamoate (Vistaril) 50 mg PO BID ROBERTO PRN Reason: Protocol Sodium Chloride (Sodium Chloride 0.9%) 1,000 mls @ 100 mls/hr IV .Q10H [facility] Last Admin: 08/11/17 12:22 Dose: 100 mls/hr Lorazepam (Ativan) 2 mg IVP Q6 PRN; Protocol PRN Reason: Seizure activity Montelukast Sodium (Singulair) 10 mg PO DAILY ROBERTO Non-Formulary Medication (Lamotrigine [Lamictal]) 200 mg PO HS ROBERTO Pantoprazole Sodium (Protonix Ec Tab) 40 mg PO 0600 ROBERTO Quetiapine Fumarate (Seroquel Xr) 100 mg PO TID ROBERTO PRN Reason: Protocol Quetiapine Fumarate (Seroquel Xr) 200 mg PO HS ROBERTO PRN Reason: Protocol Results - Vital Signs Recent Vital Signs: Last Vital Signs Temp Pulse 72 08/11/17 14:28 Resp 18 08/11/17 14:28 BP 139/66 08/11/17 14:28 Pulse Ox 100 08/11/17 14:28 - Labs Result Diagrams: 08/11/17 11:30 08/11/17 11:30 Labs: Laboratory Results - last 24 hr 08/11/17 08/11/17 14:04 14:04 Urine Color Yellow Urine Appearance Clear Urine pH 6.0 Ur Specific Roann 1.025 Urine Protein Negative Urine Glucose (UA) Negative Urine Ketones Negative Urine Blood Negative Urine Nitrate Negative Urine Bilirubin Negative Urine Urobilinogen 0.2 Ur Leukocyte Esterase Trace H Urine RBC 0 - 2 Urine WBC 0 - 2 Ur Epithelial Cells 0 - 2 Urine HCG, Qual Negative Urine Opiates Screen Negative Urine Methadone Screen Negative Ur Barbiturates Screen Positive H Ur Phencyclidine Scrn Negative Ur Amphetamines Screen Negative U Benzodiazepines Scrn Positive U Oth Cocaine Metabols Negative U Cannabinoids Screen Positive H Attending/Attestation - Attestation I have personally seen and examined this patient.: Yes I have fully participated in the care of the patient.: Yes I have reviewed all pertinent clinical information: Yes
[2017-08-11 14:12] LABS: URINE APPEARANCE CLEAR (CLEAR); URINE BILIRUBIN NEGATIVE (NEGATIVE); URINE BLOOD NEGATIVE (NEGATIVE); URINE COLOR YELLOW (YELLOW); URINE GLUCOSE (UA) NEGATIVE (NEGATIVE); URINE LEUKOCYTE ESTERASE TRACE Leu/uL (NEGATIVE); URINE NITRATE NEGATIVE (NEGATIVE); URINE PROTEIN NEGATIVE mg/dL (<30 mg/dL); URINE UROBILINOGEN 0.2 E.U./dL (<1 E.U./dL)
[2017-08-11 14:18] LABS: HCG,QUALITATIVE URINE NEGATIVE (NEGATIVE)
[2017-08-11 14:20] LABS: URINE EPITHELIAL CELLS 0 - 2 /hpf (0-5); URINE RBC 0 - 2 /hpf (0-2); URINE WBC 0 - 2 /hpf (0-6)
[2017-08-11 14:32] LABS: OPIATES, UR NEGATIVE (NEGATIVE); PHENCYCLIDINE, UR NEGATIVE (NEGATIVE)
[2017-08-11] MEDS ORDERED: Albuterol-Ipratrop 3 mg / 0.5 (3 ml) UD IH PRN (15:02)
[2017-08-11 15:07] LABS: BARBITURATES, UR POSITIVE (NEGATIVE); BENZODIAZEPINES, UR POSITIVE (NEGATIVE)
[2017-08-11] MEDS ORDERED: Potassium Chloride 20 mEq ER Tab PO STA (15:10)
--- NOTE | 2017-08-11 15:20 | CP.PCM.HP ---
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 Patient states she was at work around 11 am today outside when she felt her eye twitch and felt jumpy. After that she had 3 episodes of seizures. She did not lose consciousness, denied any urinary or bowel incontinence or tongue biting. She states that during one of those episodes she fell and hit her head and hurt her left shoulder. She also stated she had 3 episodes in the ambulance and several witnessed seizures in the ED. The nurse stated she saw the patient shake for about 3-10 seconds, not lose consciousness and was AAOx3 after the episodes. Patient states she has had a history of seizers and has had a video EEG done at [facility]. Patient denies any chest pain, shortness of breath, nausea, vomiting, fever, chills, sore throat, or any other complaints at this time. 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 adrenal, psychogenic non epileptic seizures, anxiety, bipolar disorder, and personality disorder PSH: DandC, gall bladder removed, left adrenal mass removal Allergies: almond, almond oil, penicillin, pheytoin Family Hx: epilepsy and heart disease Medications: See MAR, confirm suboxone dosage Socail: smokes half pack of cigarettes, denies alcohol use, daily marijuana use Present on Admission - Present on Admission Any Indicators Present on Admission: No Review of Systems - Constitutional Constitutional: absent: Chills, Fatigue, Fever, Headache, Night Sweats - EENT Eyes: absent: Blurred Vision, Change in Vision Nose/Mouth/Throat: absent: Nasal Congestion, Nasal Discharge, Sore Throat, Throat Swelling, Tongue Swelling - Cardiovascular Cardiovascular: absent: Chest Pain, Dyspnea, Palpitations, Radiating Pain, Rapid Heart Rate, Slow Heart Rate - Gastrointestinal Gastrointestinal: absent: Abdominal Pain, Nausea, Vomiting - Genitourinary Genitourinary: absent: Difficulty Urinating, Dysuria, Urinary Incontinence - Musculoskeletal Musculoskeletal: absent: Tingling Additional comments: Pain in the left shoulder - Integumentary Integumentary: absent: Erythema, Jaundice - Neurological Neurological: absent: Dizziness, Focal Weakness, Loss of Vision, Syncope, Tingling, Other Visual Disturbances Additional comments: seizures - Psychiatric Psychiatric: absent: Panic Attacks Past Patient History - Infectious Disease Hx of Infectious Diseases: None - Tetanus Immunizations Tetanus Immunization: Up to Date, Unknown - Past Medical History & Family History Past Medical History?: Yes - Past Social History Smoking Status: Heavy Smoker > 10 Cigarettes Daily - CARDIAC Hx Cardiac Disorders: Yes Hx Heart Attack: No Hx Hypertension: Yes Other/Comment: [place] - PULMONARY Hx Respiratory Disorders: Yes Hx Asthma: Yes Hx Bronchitis: Yes - NEUROLOGICAL Hx Neurological Disorder: Yes Hx Migraine: Yes Hx Seizures: Yes - HEENT Hx HEENT Problems: Yes Hx Epistaxis: Yes - RENAL Hx Chronic Kidney Disease: Yes Hx Pyelonephritis: Yes - ENDOCRINE/METABOLIC Hx Endocrine Disorders: Yes Other/Comment: h/o adrenal mass - HEMATOLOGICAL/ONCOLOGICAL Hx Blood Disorders: Yes Hx Cancer: Yes (cervix ca) - INTEGUMENTARY Hx Dermatological Problems: No - MUSCULOSKELETAL/RHEUMATOLOGICAL Hx Musculoskeletal Disorders: Yes Hx Falls: Yes - GASTROINTESTINAL Hx Gastrointestinal Disorders: Yes Hx Gastroesophageal Reflux: Yes - GENITOURINARY/GYNECOLOGICAL Hx Genitourinary Disorders: Yes Hx Cervical Cancer: Yes Hx Urinary Tract Infection: Yes - PSYCHIATRIC Hx Psychophysiologic Disorder: Yes Hx Bipolar Disorder: Yes Hx Substance Use: Yes - SURGICAL HISTORY Hx Cholecystectomy: Yes Hx Dilation and Curettage: Yes Other/Comment: adrenal removal on 03/07. - ANESTHESIA Hx Anesthesia: Yes Hx Anesthesia Reactions: Yes (states she woke up during surgeries) Hx Malignant Hyperthermia: No Meds Allergies/Adverse Reactions: Allergies Allergy/AdvReac Type Severity Reaction Status Date / Time almond Allergy ANAPHYLAXIS Verified 08/11/17 14:18 almond oil Allergy ANAPHYLAXIS Verified 08/11/17 14:18 Penicillins Allergy ANAPHYLAXIS Verified 08/11/17 14:18 phenytoin Allergy RASH Verified 08/11/17 14:18 levetiracetam [From [facility]] AdvReac Intermediate FATIGUE Verified 08/11/17 15:43 Physical Exam - Constitutional Appears: Non-toxic, No Acute Distress - Head Exam Head Exam: ATRAUMATIC, NORMAL INSPECTION, NORMOCEPHALIC - Eye Exam Eye Exam: EOMI, Normal appearance - ENT Exam ENT Exam: Mucous Membranes Moist - Respiratory Exam Respiratory Exam: Clear to Auscultation Bilateral, NORMAL BREATHING PATTERN - Cardiovascular Exam Cardiovascular Exam: REGULAR RHYTHM, +S1, +S2 - GI/Abdominal Exam GI & Abdominal Exam: Normal Bowel Sounds - Extremities Exam Extremities exam: Positive for: pedal pulses present. Negative for: pedal edema Additional comments: difficulty fully abducting right arm - Neurological Exam Neurological exam: Alert, Oriented x3, Reflexes Normal Additional comments: motor and sensation intact bilaterally upper and lower except for left shoulder abduction Results - Vital Signs Recent Vital Signs: Last Vital Signs Temp Pulse 72 08/11/17 14:28 Resp 18 08/11/17 14:28 BP 139/66 08/11/17 14:28 Pulse Ox 100 08/11/17 14:28 - Labs Result Diagrams: 08/11/17 11:30 08/11/17 11:30 Labs: Laboratory Results - last 24 hr 08/11/17 08/11/17 14:04 14:04 Urine Color Yellow Urine Appearance Clear Urine pH 6.0 Ur Specific Gary 1.025 Urine Protein Negative Urine Glucose (UA) Negative Urine Ketones Negative Urine Blood Negative Urine Nitrate Negative Urine Bilirubin Negative Urine Urobilinogen 0.2 Ur Leukocyte Esterase Trace H Urine RBC 0 - 2 Urine WBC 0 - 2 Ur Epithelial Cells 0 - 2 Urine HCG, Qual Negative Urine Opiates Screen Negative Urine Methadone Screen Negative Ur Barbiturates Screen Positive H Ur Phencyclidine Scrn Negative Ur Amphetamines Screen Negative U Benzodiazepines Scrn Positive U Oth Cocaine Metabols Negative U Cannabinoids Screen Positive H Assessment & Plan - Assessment and Plan (Free Text) Assessment: 32 year old female with past medical history of asthma, renal mass removal from left adrenal, psychogenic non epileptic seizures, anxiety, bipolar disorder, and personality disorder who presents to the ED after several seizure episodes. Plan: 1. Seizures with an episode of fall -EKG pending official read -Ativan, keppra given in ED -CT head pending -MRI Brain pending -Left shoulder xray pending -UDS pending -neuro checks -fall precautions -seizure precautions -apsiration precautions -Ativan PRN -Lamictal -Neuro consulted-Ebony, follow recs -Psych consulted Pearl-follow recs -holding baclofen due to lowering seizure threshold -EEG pending 2. Hypokalemia -K repleted -contiinue to monitor -Magnesium pending 3. Bipolar/ Personality/ Anxiety -seroquel -fluoxetine -Psych consulted Pearl-follow recs 4. Asthma-chronic -Duonebs PRN -albuterol -singulair <Jazzy Kong - Last Filed: 08/12/17 18:16> Results - Vital Signs Recent Vital Signs: Last Vital Signs Temp 97.6 F 08/12/17 12:00 Pulse 48 L 08/12/17 14:00 Resp 17 08/12/17 12:00 BP 126/87 08/12/17 12:00 Pulse Ox 95 08/12/17 05:28 - Labs Result Diagrams: 08/12/17 06:00 08/12/17 06:00 Labs: Laboratory Results - last 24 hr 08/12/17 08/12/17 06:00 06:00 WBC 6.8 D RBC 4.05 Hgb 12.1 D Hct 37.1 MCV 91.6 MCH 29.9 MCHC 32.6 RDW 14.2 Plt Count 240 MPV 11.7 H Gran % 43.5 L Lymph % (Auto) 47.6 H Kinney % (Auto) 6.8 H Eos % (Auto) 1.5 Baso % (Auto) 0.6 Gran # 2.95 Lymph # 3.2 Kinney # 0.5 Eos # 0.1 Baso # 0.04 Sodium 141 Potassium 3.6 Chloride 113 H Carbon Dioxide 22 Anion Gap 10 BUN 12 Creatinine 0.6 L Est GFR ( Amer) > 60 Est GFR (Non-Af Amer) > 60 Random Glucose 79 Calcium 8.5 Total Bilirubin 0.6 AST 27 ALT 29 Alkaline Phosphatase 36 L Total Protein 5.6 L Albumin 3.0 Globulin 2.6 Albumin/Globulin Ratio 1.1 Attending/Attestation - Attestation I have personally seen and examined this patient.: Yes I have fully participated in the care of the patient.: Yes I have reviewed all pertinent clinical information: Yes Notes (Text): 08/12/17 18:14 Patient was seen and examined with medical collections. Agreed with assessment and plan. 32 year old female with past medical history of asthma, renal mass removal from left adrenal, psychogenic non epileptic seizures, anxiety, bipolar disorder, and personality disorder who presents to the ED after several seizure episodes.Patient does not has any focal deficit.CT head is negative .Patient symptoms are likely due to Pseudo seizures.Patient will be monitored in the hospital.We will get MRI of Brain and Neurology consult. Management plan was discussed in detail with patient. Education was provided.
[2017-08-11] MEDS ORDERED: Albuterol 0.083% Inhal Sol (2.5 mg/3 mL) UD IH PRN (15:49)
--- NOTE | 2017-08-11 16:01 | CT ---
PROCEDURE: CT HEAD WITHOUT CONTRAST. HISTORY: repetitive seizures COMPARISON: Noncontrast head CT performed 12/11/16 TECHNIQUE: Axial computed tomography images were obtained through the head/brain without intravenous contrast. Radiation dose: Total exam DLP = 953.26 mGy-cm. This CT exam was performed using one or more of the following dose reduction techniques: Automated exposure control, adjustment of the mA and/or kV according to patient size, and/or use of iterative reconstruction technique. FINDINGS: HEMORRHAGE: No intracranial hemorrhage. BRAIN: No mass effect or edema. The donnelly-white matter differentiation appears intact. Please note that MRI with diffusion imaging is more sensitive in the detection of acute ischemic event. VENTRICLES: No hydrocephalus. CALVARIUM: Unremarkable. PARANASAL SINUSES: Extensive opacification of the partially imaged left maxillary sinus. MASTOID AIR CELLS: Unremarkable as visualized. No inflammatory changes. OTHER FINDINGS: None. IMPRESSION: No acute intracranial pathology identified. Extensive opacification of the partially imaged left maxillary sinus. Correlate clinically for possibility of sinusitis.
[2017-08-11] MEDS ORDERED: Influenza Vaccine 60 mcg/0.5 mL SYR (4YR UP) IM ONE (16:19)
[2017-08-11] MEDS ORDERED: Pneumococcal 23-Valent Vaccine IM ONE (16:19)
[2017-08-11 16:20] VITALS: BMI 39.0
--- NOTE | 2017-08-11 16:53 | RAD ---
HISTORY: COMPARISON: 04/26/2016. TECHNIQUE: Chest PA and lateral FINDINGS: LINES AND TUBES: None. LUNG AND PLEURA: The lungs are well inflated and clear. HEART AND MEDIASTINUM: The heart is not enlarged. The hilar and mediastinal contours are within normal limits. SKELETAL STRUCTURES: The bony structures are within normal limits for the patient's age. VISUALIZED UPPER ABDOMEN: Normal. OTHER FINDINGS: None. IMPRESSION: No acute findings.
--- NOTE | 2017-08-11 16:54 | RAD ---
PROCEDURE: Radiographs of the Left Shoulder HISTORY: left shoulder pain, s/p fall/seizure 1 week ago COMPARISON: No prior. FINDINGS: BONES: Bone alignment and mineralization are normal. There is no acute displaced fracture or bone destruction. JOINTS: Normal. Glenohumeral and acromioclavicular joints preserved. No osteoarthritis. SOFT TISSUES: Normal. OTHER FINDINGS: None. IMPRESSION: No acute fracture or dislocation.
[2017-08-11] MEDS: QUEtiapine 50 mg XR Tab PO SCH (17:18)
--- NOTE | 2017-08-11 17:37 | PCM.RRT ---
<Martin Briceño - Last Filed: 08/11/17 17:32> [address] [employer] [facility] Nurse Assessment - Situation Date: 08/11/[address] [facility]IC was called: 16:[address] [facility] Responder Arrival Time: 16:[address] Location:: [address] [place] [address] Room Number: 277-[address] [facility] Reason for Call: Looks Sicker [address] [employer] [facility] Called By: RN - Respiratory Oxygen Delivery Method: Nasal Cannula @L/min Oxygen Flow Rate: 3 Received Nebulizer Treatments:: No Was the Patient Ventilated with Bag/Mask 100% O2?: No Secretions Suctioned?: No Was the Patient Intubated?: No CPR started during STREET CAR MECHANIC?: No - Vital Signs Vital Sign: Rapid Response Vital Sign Blood Pressure 135/73 Pulse Rate 76 Respiratory Rate 20 Temperature 98.3 F Oxygen Saturation 99 - Finger Stick Blood Glucose Finger Stick Blood Glucose: 71 - Time STREET CAR MECHANIC Ended Time STREET CAR MECHANIC Ended: 17:00 - Recommendations Notifications: Attending Physician I.Reason for STREET CAR MECHANIC - A) Acute Change in Patient: Subjective: Rapid response called to room 277-2. Rapid response team responded immediately. Patient is a 32yo female with history of asthma, left adrenal mass s/p resection , psychogenic non-epileptic seizures, anxiety, bipolar disorder and personality disorder. Rapid response was called for altered mental status. On arrival, vitals were noted to be as follows: blood pressure 135/73, heart rate 76bpm, o2sat 99% on 3L nasal cannula, blood glucose 71. Patient was noted to be with her eyes closed and not responding to her name. Post sternal rub, patient opened her eyes and was responding to questions appropriately. Patient denied any complaints at the time. Chart reviewed. CT Head revealed no acute intracranial abnormalities. Ativan PRN has already been ordered. Pending EEG and neurology input. - Respiratory Oxygen Delivery Method: Nasal Cannula @L/min Oxygen Flow Rate: 3 - Constitutional Appears: No Acute Distress - Head Head Exam: ATRAUMATIC, NORMOCEPHALIC - Eyes Eye Exam: EOMI, PERRL - Respiratory Exam Respiratory Exam: absent: Rales, Rhonchi, Wheezes - Cardiovascular Exam Cardiovascular Exam: RRR, +S1, +S2. absent: Gallop, Rubs - GI/Abdominal Exam GI & Abdominal Exam: Soft. absent: Distended, Firm, Guarding, Rigid, Tenderness , Rebound - Neurological Exam Neurological Exam: Alert, Awake Plan - Assessment of Findings&Treatment Plan 32yo female with history of asthma, left adrenal mass s/p resection, psychogenic non-epileptic seizures, anxiety, bipolar disorder and personality disordered for whom rapid response was called for altered mental status -Vitals were within normal limits -Patient was protecting her airway -Regained consciousness post sternal rub and was responding to questions appropriately -No bowel/bladder incontinence or tongue biting -CT Head reviewed; revealed no acute intracranial abnormalities -EEG is pending -Ativan has already been ordered PRN -Further recommendations as per neurology Patient seen and case discussed/reviewed with attending, Dr. Kong <Jazzy Kong - Last Filed: 08/12/17 18:17> ST[address] [employer] Nurse Assessment - Vital Signs Vital Sign: Rapid Response Vital Sign Blood Pressure 135/73 Pulse Rate 76 Respiratory Rate 20 Temperature 98.3 F Oxygen Saturation 99 Attending/Attestation - Attestation I have personally seen and examined this patient.: Yes I have fully participated in the care of the patient.: Yes I have reviewed all pertinent clinical information, including history, physical exam and plan: Yes
--- NOTE | 2017-08-11 17:52 | CARD ---
APPROVED REPORT EKG Measurement Heart [id number] <Conclusion> Sinus rhythm with 1st degree AV block Possible Left atrial enlargement Borderline ECG
[2017-08-11] MEDS ORDERED: QUEtiapine 200 mg XR Tab PO SCH (22:00)
[2017-08-11] MEDS: Albuterol 0.5% Inhal Sol (2.5 mg/0.5 ml) UD IH SCH (23:00)
[2017-08-12] MEDS: Sodium Chloride 0.9% 1,000 ML IV SCH ×2 (00:07→08:34)
[2017-08-12 05:29] VITALS: O2SAT 95
[2017-08-12] MEDS ORDERED: Pantoprazole 40 mg EC Tab PO SCH (06:00)
[2017-08-12 07:10] LABS: BASO # 0.04 K/mm3 (0.0-2.0); BASO % 0.6 % (0.0-3.0); EOS # 0.1 (0.0-0.7); EOS % 1.5 % (1.5-5.0); GRAN # 2.95 (1.4-6.5); GRAN % 43.5 % (50.0-68.0); LYMPH # 3.2 (1.2-3.4); LYMPH % 47.6 % (22.0-35.0); MEAN CELL VOLUME 91.6 fl (80.0-105.0); MEAN CORPUSCULAR HEMOGLOBIN 29.9 pg (25.0-35.0); MEAN CORPUSCULAR HGB CONC 32.6 g/dl (31.0-37.0); MEAN PLATELET VOLUME 11.7 fl (7.0-11.0); MONO # 0.5 (0.1-0.6); MONO % 6.8 % (1.0-6.0); RBC 4.05 10^6/uL (3.5-6.1); RED CELL DISTRIBUTION WIDTH 14.2 % (11.5-14.5); WHITE BLOOD COUNT 6.8 10^3/ul (4.5-11.0)
[2017-08-12 07:15] LABS: HEMOGLOBIN 12.1 g/dL (12.0-16.0)
[2017-08-12 07:44] LABS: ALB/GLOB RATIO 1.1 (1.1-1.8); ALT/SGPT 29 U/L (7-56); AST/SGOT 27 U/L (14-36); BLOOD UREA NITROGEN 12 mg/dL (7-21); CALCIUM 8.5 mg/dL (8.4-10.5); GFR AFRICAN-AMERICAN > 60; GFR NON-AFRICAN AMERICAN > 60
[2017-08-12] MEDS: Albuterol 0.5% Inhal Sol (2.5 mg/0.5 ml) UD IH SCH ×2 (08:30→13:23)
--- NOTE | 2017-08-12 10:50 | CP.PCM.PN ---
<Hope Wyman - Last Filed: 08/12/17 10:47> Subjective - Date & Time of Evaluation Date of Evaluation: 08/12/17 Time of Evaluation: 09:00 - Subjective Subjective: Neurology PGY-[address] Beck Pt states L arm pain, partially relief from warm wrap. requested pain med. No HUBBARD , dizziness, CP, SOB, dysuria Objective - Vital Signs/Intake and Output Vital Signs (last 24 hours): Temp Pulse Resp BP Pulse Ox 97.4 F L 47 L 18 102/55 L 95 08/12/17 05:28 08/12/17 06:55 08/12/17 05:28 08/12/17 06:55 08/12/17 05:28 Intake and Output: 08/12/17 08/12/17 06:59 18:59 Intake Total 1200 Balance 1200 - Medications Medications: Current Medications Acetaminophen (Tylenol 325mg Tab) 650 mg PO Q6H PRN PRN Reason: Headache Last Admin: 08/12/17 07:56 Dose: 650 mg Albuterol Sulfate (Albuterol 0.5% Inhal Wendy (2.5 Mg/0.5 Ml) Ud) 2.5 mg IH QID ROBERTO Last Admin: 08/11/17 23:00 Dose: 2.5 mg Albuterol Sulfate (Albuterol 0.083% Inhal Wendy (2.5 Mg/3 Ml) Ud) 2.5 mg IH [id number] PRN PRN Reason: Shortness of Breath Clonazepam (Klonopin) 1 mg PO TID ROBERTO PRN Reason: Protocol Last Admin: 08/11/17 17:18 Dose: 1 mg Cyanocobalamin (Vitamin B12 1000 Mcg Tab) 1,000 mcg PO DAILY [facility] Fluoxetine HCl (Prozac) 20 mg PO DAILY [facility] Heparin Sodium (Porcine) (Heparin) 5,000 units SC Q12 ROBERTO PRN Reason: Protocol Hydroxyzine Pamoate (Vistaril) 50 mg PO BID ROBERTO PRN Reason: Protocol Last Admin: 08/11/17 17:17 Dose: 50 mg Sodium Chloride (Sodium Chloride 0.9%) 1,000 mls @ 100 mls/hr IV .Q10H ROBERTO Last Admin: 08/12/17 08:34 Dose: Not Given Lamotrigine (Lamictal) 200 mg PO HS [facility] Last Admin: 08/11/17 21:18 Dose: 200 mg Lamotrigine (Lamictal) 100 mg PO DAILY ROBERTO PRN Reason: Protocol Montelukast Sodium (Singulair) 10 mg PO DAILY [facility] Pantoprazole Sodium (Protonix Ec Tab) 40 mg PO 0600 ROBERTO Last Admin: 08/12/17 05:08 Dose: 40 mg Quetiapine Fumarate (Seroquel Xr) 100 mg PO TID ROBERTO PRN Reason: Protocol Last Admin: 08/11/17 17:18 Dose: 100 mg Quetiapine Fumarate (Seroquel Xr) 200 mg PO HS ROBERTO PRN Reason: Protocol Last Admin: 08/11/17 21:18 Dose: 200 mg Tizanidine HCl (Zanaflex) 4 mg PO Q6 PRN PRN Reason: Pain, moderate (4-7) Last Admin: 08/11/17 21:18 Dose: 4 mg - Labs Labs: 08/12/17 06:00 08/12/17 06:00 - Constitutional Appears: No Acute Distress - Head Exam Head Exam: ATRAUMATIC, NORMAL INSPECTION, NORMOCEPHALIC - Eye Exam Eye Exam: EOMI, Normal appearance, PERRL - ENT Exam ENT Exam: Mucous Membranes Moist, Normal Exam - Neck Exam Additional comments: supple - Respiratory Exam Respiratory Exam: Clear to Ausculation Bilateral, NORMAL BREATHING PATTERN. absent: Rales, Rhonchi, Wheezes - Cardiovascular Exam Cardiovascular Exam: REGULAR RHYTHM, +S1, +S2. absent: Murmur - GI/Abdominal Exam GI & Abdominal Exam: Soft, Normal Bowel Sounds. absent: Tenderness - Extremities Exam Additional comments: L arm in heat wrap - Neurological Exam Neurological Exam: Alert, Awake, CN II-XII Intact, Oriented x3 Additional comments: Speech: fluent, no aphasia Recall: 2/3 after 5 minutes Vision: R peripheral vision decreases. Central vision decreases b/l Motor: R shoulder ROM decrease due to pain. 5/5 all extemities sensory: intact [id number] coordinaton: intact rapid-alternating movement: intact Assessment and Plan - Assessment and Plan (Free Text) Plan: Ms Leydi Bradley, 32F, heavy smoker with PMHx Asthma, atrophic kidney, psychogenic non epileptic seizure disorder, premature heart disasese, anxiety and bipolar disorder, presents to the emergency department s/p 6 episodes of tonic/clonic seizures. Pt increased her baclofen to 20mg TID to 10 times a day. She also increased naproxen 500 Bid to "much more" doses. She was off fioricet for a while. Last use mariguana 2 nights ago. Pt reported unintentional weight loss of 20 lbs since the new year with chronic feeling of nausea. Vital sign stable except bradycardia at 40s-50s. CBC/CMP unremarkable. U/A neg. [facility] STENOGRAPHER was called x 1 for seizure likely due to psychogenic in nature. Breakthrough Tonic-clonic seizure likely triggered by overdose of baclofen and Marijuana abuse in the setting of significant weight loss Allergy to Phenytoin Cannot tolerate Keppra - mood swing in setting of bipolar disorder - neuro check q4 - seizure precautions - EEG in AM; pending MRI brain - CK normal - UDS + barbiturates and cannabonoids - CT head: No acute finding. extensive opacifaction L maxillary sinus - Continue Clonazepam (Klonopin) 1mg TID, Lamictal 200 HS for seizure prevention - Add lamictal 100 during the day - Follow up with Dr. Paulino, epilepsy specialist, outpatient psychogenic non epileptic seizure" episode - Avoid benzo as possible Shoulder pain - L shoulder xray: No fracture or dislocation - MRI shoulder pending - Avoid baclofen - Start tizanidine 4 Q6 PRN spasm/pain - Pain management counsult Bradycardia, asymptomatic - 1st degree AV block - maintain SBP 120-130 Choice of med: - Hospital has Keppra, tegretol, dilantin on formulary s/r/d/w Dr. Beck <Grey Beck - Last Filed: 08/12/17 11:08> Objective - Vital Signs/Intake and Output Vital Signs (last 24 hours): Temp Pulse Resp BP Pulse Ox 97.4 F L 47 L 18 102/55 L 95 08/12/17 05:28 08/12/17 06:55 08/12/17 05:28 08/12/17 06:55 08/12/17 05:28 Intake and Output: 08/12/17 08/12/17 06:59 18:59 Intake Total 1200 Balance 1200 - Medications Medications: Current Medications Acetaminophen (Tylenol 325mg Tab) 650 mg PO Q6H PRN PRN Reason: Headache Last Admin: 08/12/17 07:56 Dose: 650 mg Albuterol Sulfate (Albuterol 0.5% Inhal Wendy (2.5 Mg/0.5 Ml) Ud) 2.5 mg IH QID ROBERTO Last Admin: 08/11/17 23:00 Dose: 2.5 mg Albuterol Sulfate (Albuterol 0.083% Inhal Wendy (2.5 Mg/3 Ml) Ud) 2.5 mg IH [id number] PRN PRN Reason: Shortness of Breath Clonazepam (Klonopin) 1 mg PO TID ROBERTO PRN Reason: Protocol Last Admin: 08/11/17 17:18 Dose: 1 mg Cyanocobalamin (Vitamin B12 1000 Mcg Tab) 1,000 mcg PO DAILY [facility] Fluoxetine HCl (Prozac) 20 mg PO DAILY [facility] Heparin Sodium (Porcine) (Heparin) 5,000 units SC Q12 ROBERTO PRN Reason: Protocol Hydroxyzine Pamoate (Vistaril) 50 mg PO BID ROBERTO PRN Reason: Protocol Last Admin: 08/11/17 17:17 Dose: 50 mg Sodium Chloride (Sodium Chloride 0.9%) 1,000 mls @ 100 mls/hr IV .Q10H [facility] Last Admin: 08/12/17 08:34 Dose: Not Given Lamotrigine (Lamictal) 200 mg PO HS [facility]ERTO Last Admin: 08/11/17 21:18 Dose: 200 mg Lamotrigine (Lamictal) 100 mg PO DAILY [facility] PRN Reason: Protocol Montelukast Sodium (Singulair) 10 mg PO DAILY [facility] Pantoprazole Sodium (Protonix Ec Tab) 40 mg PO 0600 [facility] Last Admin: 08/12/17 05:08 Dose: 40 mg Quetiapine Fumarate (Seroquel Xr) 100 mg PO TID ROBERTO PRN Reason: Protocol Last Admin: 08/11/17 17:18 Dose: 100 mg Quetiapine Fumarate (Seroquel Xr) 200 mg PO HS [facility]ERTO PRN Reason: Protocol Last Admin: 08/11/17 21:18 Dose: 200 mg Tizanidine HCl (Zanaflex) 4 mg PO Q6 PRN PRN Reason: Pain, moderate (4-7) Last Admin: 01/25/18 21:18 Dose: 4 mg - Labs Labs: 08/12/17 06:00 08/12/17 06:00 Attending/Attestation - Attestation I have personally seen and examined this patient.: Yes I have fully participated in the care of the patient.: Yes I have reviewed all pertinent clinical information, including history, physical exam and plan: Yes
[2017-08-12] MEDS: QUEtiapine 50 mg XR Tab PO SCH ×2 (11:56→13:09)
--- NOTE | 2017-08-12 12:19 | MRI ---
PROCEDURE: MRI BRAIN WITHOUT CONTRAST HISTORY: Seizure COMPARISON: Noncontrast head CT from 08/11/2017 and 12/11/2016 TECHNIQUE: Multiplanar, multisequence MR images of the brain were obtained without intravenous contrast enhancement. FINDINGS: HEMORRHAGE: None DWI: No evidence of an acute or early subacute infarction. BRAIN PARENCHYMA: Farr-white matter differentiation is preserved. There is no mass, mass effect or abnormal extra-axial fluid collection. There is a 1.2 x 1.5 x 1.6 cm T1 hypointense and T2/stir hyperintense cystic mass in the pineal gland. The hippocampi by are symmetric with normal signal intensity. No evidence of mesial temporal sclerosis. VENTRICLES: The ventricles are normal in size, shape and configuration. CRANIUM: There is normal bone marrow signal pattern. ORBITS: Grossly unremarkable. PARANASAL SINUSES/MASTOIDS: There is a retention cyst/ polyp in the left maxillary sinus. There is mild mucosal thickening in the paranasal sinuses. The mastoid air cells are predominantly clear. VASCULAR SYSTEM: There are normal signal voids in the larger intracranial arteries. OTHER FINDINGS: None. IMPRESSION: 1. No acute intracranial abnormality. 2. 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 No evidence of hydrocephalus. Given size greater than 12 mm and no prior MRI imaging for comparison to assess stability, MRI brain with intravenous contrast is recommended to assess simple/benign nature of the cyst.
[2017-08-12 12:42] VITALS: BP 126/87; RESP 17; TEMP 97.6
[2017-08-12] MEDS ORDERED: Albuterol 0.083% Inhal Sol (2.5 mg/3 mL) UD IH PRN (14:27)
[2017-08-12] MEDS ORDERED: Albuterol 0.5% Inhal Sol (2.5 mg/0.5 ml) UD IH SCH (14:28)
--- NOTE | 2017-08-12 14:32 | MRI ---
PROCEDURE: MRI Left Shoulder TECHNIQUE: Multiecho multiplanar sequences were performed through the left shoulder. No intravenous contrast. HISTORY: Left shoulder pain COMPARISON: None. FINDINGS: SUPRASPINATUS TENDON: There is heterogeneous abnormal signal at the distal supraspinatus tendon suggestive of partial thickness intra substance tear and moderate tendinopathy. INFRASPINATUS TENDON: There is also heterogeneous hyperintense signal at the distal infraspinatus tendon suggestive of partial thickness intra substance tear. TERES MINOR TENDON: No evidence of acute pathology or abnormal signal at the teres minor SUBSCAPULARIS TENDON: No evidence of tear or abnormal signal at the subscapular is tendon PROXIMAL PORTION OF THE LONG HEAD OF THE BICEPS TENDON: Small amount of fluid surrounding the proximal portion of the long head of the biceps tendon suggestive of tendinopathy. GLENOID LABRUM: No evidence of labrum tear. JOINT EFFUSION: No evidence of significant joint effusion. ACROMIOCLAVICULAR JOINT SPACE: Moderate degenerative osteoarthritic changes at the AC joint. OSSEOUS STRUCTURES: Subcortical cystic formation seen at the humeral head adjacent to the rotator cuff insertion site likely represent degenerative changes. OTHER FINDINGS: There is fluid adjacent in the subcoracoid bursa suggestive of bursitis. IMPRESSION: Intra substance partial thickness rotator cuff tear involving the distal supraspinatus and infraspinatus tendons. [id number] osteoarthritic changes. Small amount of fluid surrounding the biceps tendon suggestive of tendinopathy. Findings suggestive of subcoracoid bursitis.
--- NOTE | 2017-08-12 16:01 | EEG ---
DATE: ELECTROENCEPHALOGRAM REPORT CONDITION OF THE RECORDING: Drowsy EEG. DIAGNOSIS: Seizure. MEDICATIONS: Reviewed by nurse's reconciliation sheet. INTERPRETATION: This is a 16-channel [employer] recording. The background activity of this tracing was composed of 8 cycles per second. There was increased amount of beta activity of 16 to 20 cycles per second seen in this recording, likely consistent with benzodiazepine effect. There was a small amount of theta activity of 5 to 7 cycles per second seen in this tracing. Sleep was characterized by vertex transient waves, sleep spindles, and bilateral slowing. Photic stimulation showed no change in the tracing. No paroxysmal activity is noted in this recording. CONCLUSION: This is a normal drowsy EEG. No evidence of any epileptiform activity. Please clinically correlate. Grey Beck MD
[2017-08-12 16:56] VITALS: PULSE 48
--- NOTE | 2017-08-12 18:32 | CP.PCM.DIS ---
Provider - Provider Date of Admission: 08/11/17 12:39 Attending physician: Jazzy Kong MD Primary care physician: Tamar Leary MD Consults: Psych: Pearl Neurology: Ebony Time Spent in preparation of Discharge (in minutes): 70 Hospital Course - Lab Results Lab Results: Most Recent Lab Values WBC 6.8 10^3/ul (4.5-11.0) D 08/12/17 06:00 RBC 4.05 10^6/uL (3.5-6.1) 08/12/17 06:00 Hgb 12.1 g/dL (12.0-16.0) D 08/12/17 06:00 Hct 37.1 % (36.0-48.0) 08/12/17 06:00 MCV 91.6 fl (80.0-105.0) 08/12/17 06:00 MCH 29.9 pg (25.0-35.0) 08/12/17 06:00 MCHC 32.6 g/dl (31.0-37.0) 08/12/17 06:00 RDW 14.2 % (11.5-14.5) 08/12/17 06:00 Plt Count 240 10^3/uL (120.0-450.0) 08/12/17 06:00 MPV 11.7 fl (7.0-11.0) H 08/12/17 06:00 Gran % 43.5 % (50.0-68.0) L 08/12/17 06:00 Lymph % (Auto) 47.6 % (22.0-35.0) H 08/12/17 06:00 [place] % (Auto) 6.8 % (1.0-6.0) H 08/12/17 06:00 Eos % (Auto) 1.5 % (1.5-5.0) 08/12/17 06:00 Baso % (Auto) 0.6 % (0.0-3.0) 08/12/17 06:00 Gran # 2.95 (1.4-6.5) 08/12/17 06:00 Lymph # 3.2 (1.2-3.4) 08/12/17 06:00 [place] # 0.5 (0.1-0.6) 08/12/17 06:00 Eos # 0.1 (0.0-0.7) 08/12/17 06:00 Baso # 0.04 K/mm3 (0.0-2.0) 08/12/17 06:00 Sodium 141 mmol/L (132-148) 08/12/17 06:00 Potassium 3.6 mmol/L (3.6-5.0) 08/12/17 06:00 Chloride 113 mmol/L (98-107) H 08/12/17 06:00 Carbon Dioxide 22 mmol/L (21-33) 08/12/17 06:00 Anion Gap 10 (10-20) 08/12/17 06:00 BUN 12 mg/dL (7-21) 08/12/17 06:00 Creatinine 0.6 mg/dl (0.7-1.2) L 08/12/17 06:00 Est GFR ( Amer) > 60 08/12/17 06:00 Est GFR (Non-Af Amer) > 60 08/12/17 06:00 POC Glucose (mg/dL) 76 mg/dL (65-110) 08/11/17 17:51 Random Glucose 79 mg/dL (70-110) 08/12/17 06:00 Calcium 8.5 mg/dL (8.4-10.5) 08/12/17 06:00 Magnesium 1.8 mg/dL (1.7-2.2) 08/11/17 11:30 Total Bilirubin 0.6 mg/dL (0.2-1.3) 08/12/17 06:00 AST 27 U/L (14-36) 08/12/17 06:00 ALT 29 U/L (7-56) 08/12/17 06:00 Alkaline Phosphatase 36 U/L (38-126) L 08/12/17 06:00 Total Creatine Kinase 78 U/L (35-230) 08/11/17 11:30 Total Protein 5.6 g/dL (5.8-8.3) L 08/12/17 06:00 Albumin 3.0 g/dL (3.0-4.8) 08/12/17 06:00 Globulin 2.6 gm/dL 08/12/17 06:00 Albumin/Globulin Ratio 1.1 (1.1-1.8) 08/12/17 06:00 Urine Color Yellow (YELLOW) 08/11/17 14:04 Urine Appearance Clear (CLEAR) 08/11/17 14:04 Urine pH 6.0 (4.7-8.0) 08/11/17 14:04 Ur Specific [place] 1.025 (1.005-1.035) 08/11/17 14:04 Urine Protein Negative mg/dL (<30 mg/dL) 08/11/17 14:04 Urine Glucose (UA) Negative mg/dL (NEGATIVE) 08/11/17 14:04 Urine Ketones Negative mg/dL (NEGATIVE) 08/11/17 14:04 Urine Blood Negative (NEGATIVE) 08/11/17 14:04 Urine Nitrate Negative (NEGATIVE) 08/11/17 14:04 Urine Bilirubin Negative (NEGATIVE) 08/11/17 14:04 Urine Urobilinogen 0.2 E.U./dL (<1 E.U./dL) 08/11/17 14:04 Ur Leukocyte Esterase Trace [place]/uL (NEGATIVE) H 08/11/17 14:04 Urine RBC 0 - 2 /hpf (0-2) 08/11/17 14:04 Urine WBC 0 - 2 /hpf (0-6) 08/11/17 14:04 Ur Epithelial Cells 0 - 2 /hpf (0-5) 08/11/17 14:04 Urine HCG, Qual Negative (NEGATIVE) 08/11/17 14:04 Urine Opiates Screen Negative (NEGATIVE) 08/11/17 14:04 Urine Methadone Screen Negative (NEGATIVE) 08/11/17 14:04 Ur Barbiturates Screen Positive (NEGATIVE) H 08/11/17 14:04 Ur Phencyclidine Scrn Negative (NEGATIVE) 08/11/17 14:04 Ur Amphetamines Screen Negative (NEGATIVE) 08/11/17 14:04 U Benzodiazepines Scrn Positive (NEGATIVE) 08/11/17 14:04 U Oth Cocaine Metabols Negative (NEGATIVE) 08/11/17 14:04 U Cannabinoids Screen Positive (NEGATIVE) H 08/11/17 14:04 - Hospital Course Hospital Course: 32 year old female with past medical history of asthma, renal mass removal from left adrenal, psychogenic non epileptic seizures, anxiety, bipolar disorder, and personality disorder who presents to the ED after several seizure episodes. EKG was ordered and obtained, did not show any acute ischemia or changes. Ativan and keppra were given in ED. CT head and MRI were ordered, no acute issues. Patient was placed on -neuro checks, fall precautions, seizure precautions and aspiration precautions. Neurology was consulted, patients medications were adjusted and she was place don lamictal. Baclofen was held because it can lower seizure threshold. For hypokalemia, the patient K was repleted and monitored. All other home medications were continued. Patient was cleared by neurology and told to follow outpatient with her primary neurologist as well a psychiatrist to adjust her psych medications. Patient was aware of plan and agreed. Discharge Exam - Head Exam Head Exam: ATRAUMATIC, NORMAL INSPECTION, NORMOCEPHALIC - Eye Exam Eye Exam: EOMI - Respiratory Exam Respiratory Exam: Clear to PA & Lateral, NORMAL BREATHING PATTERN - Cardiovascular Exam Cardiovascular Exam: REGULAR RHYTHM, +S1, +S2 - Neurological Exam Neurological exam: Alert, Oriented x3 Discharge Plan - Discharge Medications Prescriptions: lamoTRIgine [Lamictal] 100 mg PO QAM #30 tab tiZANidine [Zanaflex] 4 mg PO Q6 PRN #12 tab PRN Reason: Pain, Moderate (4-7) - Follow Up Plan Condition: STABLE Disposition: HOME/ ROUTINE Instructions: Epilepsy (DC), Epilepsy (GEN) Additional Instructions: Please discontinue marijuana use, discontinue Baclofen. Please follow outpatient with psychiatrist to decrease clonopin. Please also follow up with your primary neurologist. Referrals: Tamar Leary MD [Primary Care Provider] -
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
== END 2017-08-12 17:35 | disposition home or self-care (01) | DRG 889 ==
LOC: ED 11:27 → ERH 12:39 → 2RSO 15:57
PROVIDERS: ADMIT Internal Medicine; ATTEND Internal Medicine
DX: G40.901 Epilepsy, unspecified, not intractable, with status epilepticus (principal); E87.6 Hypokalemia; F31.9 Bipolar disorder, unspecified; F41.1 Generalized anxiety disorder; F60.9 Personality disorder, unspecified; M25.512 Pain in left shoulder; G43.909 Migraine, unspecified, not intractable, without status migrainosus; F12.90 Cannabis use, unspecified, uncomplicated; I10 Essential (primary) hypertension; R63.4 Abnormal weight loss; F17.210 Nicotine dependence, cigarettes, uncomplicated; F63.9 Impulse disorder, unspecified; J45.909 Unspecified asthma, uncomplicated; K21.9 Gastro-esophageal reflux disease without esophagitis; I25.2 Old myocardial infarction; Z91.81 History of falling; Z90.49 Acquired absence of other specified parts of digestive tract; Z81.1 Family history of alcohol abuse and dependence; Z82.0 Family history of epilepsy and other diseases of the nervous system

== ENCOUNTER 2017-11-15 15:37 | Emergency (ER) | payer OTHER ==
[2017-11-15 16:02] VITALS: BMI 34.1
[2017-11-15 16:05] VITALS: TEMP 99.2
[2017-11-15] MEDS ORDERED: Sodium Chloride 0.9% 1,000 ML IV STA (16:41)
[2017-11-15 16:58] LABS: URINE BILIRUBIN SMALL (NEGATIVE); URINE BLOOD NEGATIVE (NEGATIVE); URINE GLUCOSE (UA) NEGATIVE (NEGATIVE); URINE LEUKOCYTE ESTERASE TRACE Leu/uL (NEGATIVE); URINE PROTEIN 100 mg/dL (<30 mg/dL); URINE UROBILINOGEN 0.2 E.U./dL (<1 E.U./dL)
--- NOTE | 2017-11-15 17:01 | ED PDOC ---
Arrival/HPI - General Chief Complaint: Abdominal Pain Time Seen by Provider: 11/15/17 16:05 Historian: Patient - History of Present Illness Narrative History of Present Illness (Text): 11/15/17 16:58 32yo female with PMhx of seizure, Depression, s/p cholecystectomy present with 4days history of epigastric and RUQ colicky abdominal pain with associated nausea and vomiting. States symptom is simialr to when she had cholelithiasis. States she took Zofran at home without relieve. She states she is unable to keep anything down. +Poor appetite. +Chills and subjective fever. denies diarrhea, constipation, melena, hematemesis, urinary symptoms, sick contact, travel, chest pain, any other complaint. Past Medical History - Provider Review Nursing Documentation Reviewed: Yes - Past History Past History: No Previous - Infectious Disease Hx of Infectious Diseases: None - Tetanus Immunization Tetanus Immunization: Up to Date, Unknown - Cardiac Hx Cardiac Disorders: Yes Hx DC: No Hx Hypertension: Yes Other/Comment: DC - Pulmonary Hx Respiratory Disorders: Yes Hx Asthma: Yes Hx Bronchitis: Yes - Neurological Hx Neurological Disorder: Yes Hx Migraine: Yes Hx Seizures: Yes - HEENT Hx HEENT Disorder: Yes Hx Epistaxis: Yes - Renal Hx Renal Disorder: Yes Hx Pyelonephritis: Yes - Endocrine/Metabolic Hx Endocrine Disorders: Yes Other/Comment: h/o adrenal mass - Hematological/Oncological Hx Blood Disorders: Yes Hx Cancer: Yes (cervix ca) - Integumentary Hx Dermatological Disorder: No - Musculoskeletal/Rheumatological Hx Musculoskeletal Disorders: Yes Hx Falls: Yes - Gastrointestinal Hx Gastrointestinal Disorders: Yes Hx Gastroesophageal Reflux: Yes - Genitourinary/Gynecological Hx Genitourinary Disorders: Yes Hx Cervical Cancer: Yes Hx Urinary Tract Infection: Yes - Psychiatric Hx Psychophysiologic Disorder: Yes Hx Bipolar Disorder: Yes Hx Substance Use: Yes - Past Surgical History Past Surgical History: No Previous - Surgical History Hx Cholecystectomy: Yes Hx Dilation and Curettage: Yes Other/Comment: adrenal removal on 03/07. - Anesthesia Hx Anesthesia: Yes Hx Anesthesia Reactions: Yes (states she woke up during surgeries) Hx Malignant Hyperthermia: No - Suicidal Assessment Feels Threatened In Home Enviroment: No Family/Social History - Physician Review Nursing Documentation Reviewed: Yes Family/Social History: Unknown Family HX Smoking Status: Heavy Smoker > 10 Cigarettes Daily Hx Alcohol Use: No Hx Substance Use: Yes Substance used: Marijuana Hx Substance Use Treatment: No Allergies/Home Meds Allergies/Adverse Reactions: Allergies almond Allergy (Verified 11/15/17 18:59) ANAPHYLAXIS almond oil Allergy (Verified 11/15/17 18:59) ANAPHYLAXIS Penicillins Allergy (Verified 11/15/17 18:59) ANAPHYLAXIS phenytoin Allergy (Verified 11/15/17 18:59) RASH levetiracetam [From [facility]] Adverse Reaction (Intermediate, Verified 11/15/17 18 :59) FATIGUE Extreme mood swing Home Medications: Home Meds Medication Instructions Recorded Confirmed Albuterol HFA [Ventolin HFA 90 0.09 mg IH PRN PRN 02/16/12 08/11/17 mcg/actuation (8 g)] Lamotrigine [Lamictal] 200 mg PO HS 02/16/12 08/11/17 Montelukast [Singulair] 10 mg PO DAILY 02/16/12 08/11/17 Albuterol 0.5% [Albuterol 0.5% 2.5 mg IH QID 05/04/13 08/11/17 Inhal Wendy (2.5 mg/0.5 ml) UD] QUEtiapine [Seroquel XR] 100 mg PO TID 01/31/14 08/11/17 QUEtiapine [Seroquel XR] 200 mg PO HS 01/31/14 08/11/17 clonazePAM [Klonopin] 1 mg PO TID 01/31/14 08/11/17 Cyanocobalamin [Vitamin B12 1000 1,000 mcg PO DAILY 03/11/16 08/11/17 mcg Tab] Naproxen [Naprosyn] 500 mg PO BID 03/11/16 08/11/17 Zolpidem [Ambien] 10 mg PO HS 03/11/16 08/11/17 hydrOXYzine Pamoate [Vistaril] 50 mg PO BID 03/11/16 08/11/17 Review of Systems - Physician Review All systems were reviewed & negative as marked: Yes - Review of Systems Constitutional: Normal Eyes: Normal ENT: Normal Respiratory: Normal Cardiovascular: Normal Gastrointestinal: Abdominal Pain, Nausea, Vomiting. absent: Constipation, Diarrhea, Hematochezia, Hematemesis Genitourinary Female: Normal Musculoskeletal: Normal Skin: Normal Neurological: Normal Endocrine: Normal Hemo/Lymphatic: Normal Psychiatric: Normal Physical Exam Vital Signs Reviewed: Yes Vital Signs Temp Pulse Resp BP Pulse Ox 11/15/17 17:05 94 H 18 118/79 98 11/15/17 15:37 99.2 F 103 H 16 120/83 96 Temperature: Afebrile Blood Pressure: Normal Pulse: Regular Respiratory Rate: Normal Appearance: Positive for: Well-Appearing, Non-Toxic, Comfortable Pain Distress: None Mental Status: Positive for: Alert and Oriented X 3 - Systems Exam Head: Present: Atraumatic, Normocephalic Pupils: Present: PERRL Extroacular Muscles: Present: EOMI Conjunctiva: Present: Normal Mouth: Present: Moist Mucous Membranes Neck: Present: Normal Range of Motion Respiratory/Chest: Present: Clear to Auscultation, Good Air Exchange. No: Respiratory Distress, Accessory Muscle Use Cardiovascular: Present: Regular Rate and Rhythm, Normal S1, S2. No: Murmurs Abdomen: Present: Tenderness (RUQ and epigastric tenderness), Normal Bowel Sounds (Hyperactive on the upper abdomen), Guarding (Voluntary), Other (soft). No: Distention, Peritoneal Signs, Rebound, McBurney's Point Tender, Rovsing's Sign Present Back: Present: Normal Inspection Upper Extremity: Present: Normal Inspection. No: Cyanosis, Edema Lower Extremity: Present: Normal Inspection. No: Edema Neurological: Present: GCS=15, CN II-XII Intact, Speech Normal Skin: Present: Warm, Dry, Normal Color. No: Rashes Psychiatric: Present: Alert, Oriented x 3, Normal Insight, Normal Concentration Medical Decision Making ED Course and Treatment: 11/16/17 01:14 PT presented for started history. On re evaluation she notes her symptoms improved in ED with medication. she was noted to tolerate PO challenge. Her labs was unremarkable. She have UTI and was treated with Keflex. she was referred to her PMD. - Lab Interpretations Lab Results: 11/15/17 17:35 11/15/17 17:35 Lab Results 11/15/17 17:35: Sodium 143, Potassium 4.2, Chloride 105, Carbon Dioxide 28, Anion Gap 14, BUN 11, Creatinine 0.7, Est GFR ( Amer) > 60, Est GFR (Non- Af Amer) > 60, Random Glucose 96, Calcium 9.7, Magnesium 2.1, Total Bilirubin 0.5, AST 42 H D, ALT 22, Alkaline Phosphatase 44, Total Protein 7.5, Albumin 4.4 , Globulin 3.1, Albumin/Globulin Ratio 1.4, Lipase 56 11/15/17 17:35: PT 11.7, INR 1.03, APTT 32.6 11/15/17 17:35: WBC 9.7 D, RBC 4.61, Hgb 14.0, Hct 40.8, MCV 88.5 D, MCH 30.4 , MCHC 34.3, RDW 14.4, Plt Count 310, MPV 11.1 H, Gran % 58.5, Lymph % (Auto) 34.9, Mobile % (Auto) 5.7, Eos % (Auto) 0.6 L, Baso % (Auto) 0.3, Gran # 5.64, Lymph # (Auto) 3.4, Mobile # (Auto) 0.6, Eos # (Auto) 0.1, Baso # (Auto) 0.03 11/15/17 16:47: Urine Color Yellow, Urine Appearance Cloudy, Urine pH 6.0, Ur Specific [place] >= 1.030, Urine Protein 100 H, Urine Glucose (UA) Negative, Urine Ketones Trace H, Urine Blood Negative, Urine Nitrate Negative, Urine Bilirubin Small H, Urine Urobilinogen 0.2, Ur Leukocyte Esterase Trace H, Urine RBC 2 - 5, Urine WBC 5 - 10, Ur Epithelial Cells 6 - 8, Amorphous Sediment Moderate - Medication Orders Current Medication Orders: Discontinued Medications Sodium Chloride (Sodium Chloride 0.9%) 1,000 mls @ 999 mls/hr IV .Q1H1M STA Stop: 11/15/17 17:41 Last Admin: 11/15/17 17:26 Dose: 999 mls/hr eMAR Start Stop Document 11/15/17 17:26 OCS (Rec: 11/15/17 17:26 OCS [id number]) Intravenous Solution Start Date 11/15/17 Start Time 17:26 End Date 11/15/17 End time 18:27 Total Infusion Time 61 Famotidine (Pepcid 20mg/50ml Premix) 20 mg in 50 mls @ 200 mls/hr IVPB ONCE ONE Stop: 11/15/17 17:44 Last Admin: 11/15/17 17:41 Dose: 200 mls/hr eMAR Start Stop Document 11/15/17 17:41 OCS (Rec: 11/15/17 17:42 OCS [id number]) Intravenous Solution Start Date 11/15/17 Start Time 17:41 End Date 11/15/17 End time 17:56 Total Infusion Time 15 Metoclopramide HCl (Reglan) 10 mg IVP STAT STA Stop: 11/15/17 16:41 Last Admin: 11/15/17 17:26 Dose: 10 mg IVP Administration Document 11/15/17 17:26 OCS (Rec: 11/15/17 17:26 OCS [id number]) Charges for Administration # of IVP Administrations 1 Nitrofurantoin Macrocrystals (Macrobid) 100 mg PO ONCE STA PRN Reason: Protocol Stop: 11/15/17 18:42 Last Admin: 11/15/17 18:50 Dose: 100 mg Disposition/Present on Arrival - Present on Arrival Any Indicators Present on Arrival: No History of DVT/PE: No History of Uncontrolled Diabetes: No Urinary Catheter: No History of Decub. Ulcer: No History Surgical Site Infection Following: None - Disposition Have Diagnosis and Disposition been Completed?: Yes Diagnosis: Abdominal pain, UTI (urinary tract infection) Disposition: HOME/ ROUTINE Disposition Time: 18:45 Patient Plan: Discharge Condition: STABLE Discharge Instructions (ExitCare): Urinary Tract Infections in Adults, Acute Abdomen (Belly Pain), Nausea and Vomiting, Adult (DC) Additional Instructions: Follow up with your Director Security Risk Management Follow BRAT diet and avoid acidic foods Return to ED for any new or worsening symptoms Prescriptions: Nitrofurantoin Macrocrystals [Macrobid] 100 mg PO BID #14 cap Ondansetron ODT [Zofran ODT] 4 mg PO Q6 #8 odt Ranitidine HCl [Zantac] 150 mg PO DAILY #20 tablet Referrals: Tamar Leary MD [Primary Care Provider] - Follow up with primary Forms: [employer] (Slovenian)
[2017-11-15 17:05] VITALS: BP 118/79; PULSE 94; RESP 18; O2SAT 98
[2017-11-15] MEDS ORDERED: Famotidine 20mg/50ml 20 MG/50 ML BAG IVPB ONE (17:30)
[2017-11-15 17:37] LABS: URINE APPEARANCE CLOUDY (CLEAR); URINE COLOR YELLOW (YELLOW)
[2017-11-15 17:49] LABS: BASO # 0.03 K/mm3 (0.0-2.0); BASO % 0.3 % (0.0-3.0); EOS # 0.1 (0.0-0.7); EOS % 0.6 % (1.5-5.0); GRAN # 5.64 (1.4-6.5); GRAN % 58.5 % (50.0-68.0); LYMPH # 3.4 (1.2-3.4); LYMPH % 34.9 % (22.0-35.0); MEAN CELL VOLUME 88.5 fl (80.0-105.0); MEAN CORPUSCULAR HEMOGLOBIN 30.4 pg (25.0-35.0); MEAN CORPUSCULAR HGB CONC 34.3 g/dl (31.0-37.0); MEAN PLATELET VOLUME 11.1 fl (7.0-11.0); MONO # 0.6 (0.1-0.6); MONO % 5.7 % (1.0-6.0); RBC 4.61 10^6/uL (3.5-6.1); RED CELL DISTRIBUTION WIDTH 14.4 % (11.5-14.5); WHITE BLOOD COUNT 9.7 10^3/ul (4.5-11.0)
[2017-11-15 17:58] LABS: URINE AMORPHOUS SEDIMENT MODERATE
[2017-11-15 18:15] LABS: INR 1.03 (0.93-1.08); PARTIAL THROMBOPLASTIN TIME 32.6 Seconds (25.1-36.5); PROTHROMBIN TIME 11.7 SECONDS (9.4-12.5)
[2017-11-15 18:20] LABS: ALB/GLOB RATIO 1.4 (1.1-1.8); ALBUMIN 4.4 g/dL (3.0-4.8); ALT/SGPT 22 U/L (7-56); AST/SGOT 42 U/L (14-36); BLOOD UREA NITROGEN 11 mg/dL (7-21); CALCIUM 9.7 mg/dL (8.4-10.5); GFR AFRICAN-AMERICAN > 60; GFR NON-AFRICAN AMERICAN > 60; LIPASE 56 U/L (23-300)
== END 2017-11-15 18:51 | disposition home or self-care (01) ==
LOC: ED 15:37
DX: N39.0 Urinary tract infection, site not specified (principal); R10.13 Epigastric pain; F17.210 Nicotine dependence, cigarettes, uncomplicated; I10 Essential (primary) hypertension
CPT/HCPCS: 80053; 81001; 83690; 83735; 85025; 85610; 85730; 87086; 96361; 96374; 96375; 99283; J2765; J7040

== ENCOUNTER 2017-11-29 17:51 | Emergency (ER) | payer OTHER ==
[2017-11-29 17:55] VITALS: BMI 33.6
[2017-11-29 17:56] VITALS: BP 121/57; PULSE 90; RESP 18; TEMP 99.6; O2SAT 100
--- NOTE | 2017-11-29 18:16 | ED PDOC ---
Arrival/HPI - General Chief Complaint: Medical Clearance Time Seen by Provider: 11/29/17 18:06 Historian: Patient EM Caveat: Acuity of Condition - History of Present Illness Narrative History of Present Illness (Text): Pt is a 32 yr old female with PMH of seizures who was BIBA for a possible seizure while at a clinic in [place]. Pt states that she was seeing a counselor and had a seizure, lost consciousness and was brought to [facility]. Denies chest pain , shortness of breath, fever, nausea, vomiting or diarrhea or loss of bladder or bowel. Past Medical History - Provider Review Nursing Documentation Reviewed: Yes - Travel History Have you recently traveled outside [place] w/in the past 3 mons?: No - Past History Past History: No Previous - Infectious Disease Hx of Infectious Diseases: None - Tetanus Immunization Tetanus Immunization: Up to Date, Unknown - Cardiac Hx Cardiac Disorders: Yes Hx AR: No Hx Hypertension: Yes Other/Comment: AR - Pulmonary Hx Respiratory Disorders: Yes Hx Asthma: Yes Hx Bronchitis: Yes - Neurological Hx Neurological Disorder: Yes Hx Migraine: Yes Hx Seizures: Yes - HEENT Hx HEENT Disorder: Yes Hx Epistaxis: Yes - Renal Hx Renal Disorder: Yes Hx Pyelonephritis: Yes - Endocrine/Metabolic Hx Endocrine Disorders: Yes Other/Comment: h/o adrenal mass - Hematological/Oncological Hx Blood Disorders: Yes Hx Cancer: Yes (cervix ca) - Integumentary Hx Dermatological Disorder: No - Musculoskeletal/Rheumatological Hx Musculoskeletal Disorders: Yes Hx Falls: Yes - Gastrointestinal Hx Gastrointestinal Disorders: Yes Hx Gastroesophageal Reflux: Yes - Genitourinary/Gynecological Hx Genitourinary Disorders: Yes Hx Cervical Cancer: Yes Hx Urinary Tract Infection: Yes - Psychiatric Hx Psychophysiologic Disorder: Yes Hx Bipolar Disorder: Yes Hx Substance Use: Yes - Past Surgical History Past Surgical History: No Previous - Surgical History Hx Cholecystectomy: Yes Hx Dilation and Curettage: Yes Other/Comment: adrenal removal on 03/07. - Anesthesia Hx Anesthesia: Yes Hx Anesthesia Reactions: Yes (states she woke up during surgeries) Hx Malignant Hyperthermia: No - Suicidal Assessment Feels Threatened In Home Enviroment: No Family/Social History - Physician Review Nursing Documentation Reviewed: Yes Family/Social History: No Known Family HX Smoking Status: Heavy Smoker > 10 Cigarettes Daily Hx Alcohol Use: No Hx Substance Use: Yes Substance used: Marijuana Hx Substance Use Treatment: No Allergies/Home Meds Allergies/Adverse Reactions: Allergies almond Allergy (Verified 11/15/17 18:59) ANAPHYLAXIS almond oil Allergy (Verified 11/15/17 18:59) ANAPHYLAXIS Penicillins Allergy (Verified 11/15/17 18:59) ANAPHYLAXIS phenytoin Allergy (Verified 11/15/17 18:59) RASH levetiracetam [From [facility]] Adverse Reaction (Intermediate, Verified 11/15/17 18 :59) FATIGUE Extreme mood swing Home Medications: Home Meds Medication Instructions Recorded Confirmed Albuterol HFA [Ventolin HFA 90 0.09 mg IH PRN PRN 02/16/12 08/11/17 mcg/actuation (8 g)] Lamotrigine [Lamictal] 200 mg PO HS 02/16/12 08/11/17 Montelukast [Singulair] 10 mg PO DAILY 02/16/12 08/11/17 Albuterol 0.5% [Albuterol 0.5% 2.5 mg IH QID 05/04/13 08/11/17 Inhal Wendy (2.5 mg/0.5 ml) UD] QUEtiapine [Seroquel XR] 100 mg PO TID 01/31/14 08/11/17 QUEtiapine [Seroquel XR] 200 mg PO HS 01/31/14 08/11/17 clonazePAM [Klonopin] 1 mg PO TID 01/31/14 08/11/17 Cyanocobalamin [Vitamin B12 1000 1,000 mcg PO DAILY 03/11/16 08/11/17 mcg Tab] Naproxen [Naprosyn] 500 mg PO BID 03/11/16 08/11/17 Zolpidem [Ambien] 10 mg PO HS 03/11/16 08/11/17 hydrOXYzine Pamoate [Vistaril] 50 mg PO BID 03/11/16 08/11/17 Review of Systems - Review of Systems Systems not reviewed;Unavailable: Acuity of Condition Constitutional: Normal Eyes: Normal ENT: Normal Respiratory: Normal Cardiovascular: Normal Gastrointestinal: Normal Genitourinary Female: Normal Musculoskeletal: Normal Skin: Normal Neurological: Normal Endocrine: Normal Hemo/Lymphatic: Normal Psychiatric: Normal Physical Exam Vital Signs Reviewed: Yes Vital Signs Temp Pulse Resp BP Pulse Ox 11/29/17 17:55 99.6 F 90 18 121/57 L 100 Temperature: Afebrile Blood Pressure: Normal Pulse: Regular Respiratory Rate: Normal Appearance: Positive for: Well-Appearing, Non-Toxic, Comfortable Pain Distress: None Mental Status: Positive for: Alert and Oriented X 3 Finger Stick Blood Glucose: 81 - Systems Exam Head: Present: Atraumatic, Normocephalic Neurological: Present: GCS=15, CN II-XII Intact, Speech Normal Skin: Present: Warm, Dry, Normal Color. No: Rashes Psychiatric: Present: Alert, Oriented x 3, Normal Insight, Normal Concentration Medical Decision Making ED Course and Treatment: 11/30/17 03:13 Pt is a 32 yr old female with PMH of seizures who was BIBA for a possible seizure while at a clinic in [place]. Pt requested to go AMA w/o having an evaluation or receiving treatment. Pt signed out AMA and left Hemodynamically stable on d/c Disposition/Present on Arrival - Present on Arrival Any Indicators Present on Arrival: Yes History of DVT/PE: No History of Uncontrolled Diabetes: No Urinary Catheter: No History Surgical Site Infection Following: None - Disposition Have Diagnosis and Disposition been Completed?: Yes Diagnosis: Seizure Disposition: AGAINST MEDICAL ADVICE Disposition Time: 18:00 Patient Plan: Discharge Condition: GOOD Discharge Instructions (ExitCare): Seizures, Adult (DC) Forms: [employer] (Maori)
--- NOTE | 2017-11-30 22:01 | CARD ---
APPROVED REPORT EKG Measurement Heart [id number] <Conclusion> Normal sinus rhythm Cannot rule out Anterior infarct, age undetermined Abnormal ECG
== END 2017-11-29 18:16 | disposition left against medical advice (07) ==
LOC: ED 17:51
DX: R56.9 Unspecified convulsions (principal); I10 Essential (primary) hypertension; F17.210 Nicotine dependence, cigarettes, uncomplicated

== ENCOUNTER 2018-02-04 12:36 | Emergency (ER) | payer OTHER ==
[2018-02-04] MEDS ORDERED: Sodium Chloride 0.9% 1,000 ML IV STA (12:45)
[2018-02-04] MEDS ORDERED: levETIRAcetam 1,000 MG in Sodium Chloride 0.9% 100 ML IV ONE (12:46)
[2018-02-04 12:48] VITALS: RESP 18; TEMP 98.4; BMI 31.6
[2018-02-04 13:14] LABS: BASO # 0.04 K/mm3 (0.0-2.0); BASO % 0.4 % (0.0-3.0); EOS # 0.1 (0.0-0.7); EOS % 1.2 % (1.5-5.0); GRAN # 5.37 (1.4-6.5); GRAN % 51.8 % (50.0-68.0); HEMOGLOBIN 13.6 g/dL (12.0-16.0); LYMPH # 4.1 (1.2-3.4); LYMPH % 39.8 % (22.0-35.0); MEAN CELL VOLUME 87.6 fl (80.0-105.0); MEAN CORPUSCULAR HGB CONC 34.3 g/dl (31.0-37.0); MEAN PLATELET VOLUME 10.4 fl (7.0-11.0); MONO # 0.7 (0.1-0.6); MONO % 6.8 % (1.0-6.0); RBC 4.53 10^6/uL (3.5-6.1); RED CELL DISTRIBUTION WIDTH 13.8 % (11.5-14.5); WHITE BLOOD COUNT 10.4 10^3/ul (4.5-11.0)
[2018-02-04 13:21] LABS: ALB/GLOB RATIO 1.3 (1.1-1.8); ALBUMIN 4.5 g/dL (3.0-4.8); ALT/SGPT 20 U/L (7-56); AST/SGOT 19 U/L (14-36); BLOOD UREA NITROGEN 9 mg/dL (7-21); CALCIUM 9.1 mg/dL (8.4-10.5); GFR AFRICAN-AMERICAN > 60; GFR NON-AFRICAN AMERICAN > 60
--- NOTE | 2018-02-04 13:34 | ED PDOC ---
Arrival/HPI - General Chief Complaint: Seizure Time Seen by Provider: 02/04/18 12:37 Historian: Patient - History of Present Illness Narrative History of Present Illness (Text): 02/04/18 13:24 33yo female with past medical history of Asthma, atrophic kidney, psychogenic nonepileptic seizure disorder, anxiety and bipolar disorder bib EMS for seizure episode. Patient states she have been having seizure once daily for the past 3days. States she had seizure while walking on the street with her sister this afternoon. She also had one seizure enroute to emergency department with the EMS. EMS reports tonic/clonic seizure with foam in the mouth. Denies urinary incontinent, tongue bitting. Patient who is awake in emergency department states she has been having migraine headache for days now. which is same headache typical for her migraine headache. States she was taking Immitrex for the headache. States she is compliant with her seizure medication. She denies focal weakness, nausea, vomiting, abdominal pain, neck pain, sick contact, any other complaint. Past Medical History - Provider Review Nursing Documentation Reviewed: Yes - Past History Past History: No Previous - Infectious Disease Hx of Infectious Diseases: None - Tetanus Immunization Tetanus Immunization: Up to Date, Unknown - Reproductive Menopause: No - Cardiac Hx Cardiac Disorders: Yes Hx AL: No Hx Hypertension: Yes Other/Comment: AL - Pulmonary Hx Respiratory Disorders: Yes Hx Asthma: Yes Hx Bronchitis: Yes - Neurological Hx Neurological Disorder: Yes Hx Migraine: Yes Hx Seizures: Yes - HEENT Hx HEENT Disorder: Yes Hx Epistaxis: Yes - Renal Hx Renal Disorder: Yes Hx Pyelonephritis: Yes - Endocrine/Metabolic Hx Endocrine Disorders: Yes Other/Comment: h/o adrenal mass - Hematological/Oncological Hx Blood Disorders: Yes Hx Cancer: Yes (cervix ca) - Integumentary Hx Dermatological Disorder: No - Musculoskeletal/Rheumatological Hx Musculoskeletal Disorders: Yes Hx Falls: Yes - Gastrointestinal Hx Gastrointestinal Disorders: Yes Hx Gastroesophageal Reflux: Yes - Genitourinary/Gynecological Hx Genitourinary Disorders: Yes Hx Cervical Cancer: Yes Hx Urinary Tract Infection: Yes - Psychiatric Hx Psychophysiologic Disorder: Yes Hx Bipolar Disorder: Yes Hx Substance Use: Yes - Past Surgical History Past Surgical History: No Previous - Surgical History Hx Cholecystectomy: Yes Hx Dilation and Curettage: Yes Other/Comment: adrenal removal on 03/07. - Anesthesia Hx Anesthesia: Yes Hx Anesthesia Reactions: Yes (states she woke up during surgeries) Hx Malignant Hyperthermia: No - Suicidal Assessment Feels Threatened In Home Enviroment: No Family/Social History - Physician Review Nursing Documentation Reviewed: Yes Family/Social History: Unknown Family HX Smoking Status: Heavy Smoker > 10 Cigarettes Daily Hx Alcohol Use: No Hx Substance Use: Yes Substance used: Marijuana Hx Substance Use Treatment: No Allergies/Home Meds Allergies/Adverse Reactions: Allergies almond Allergy (Verified 11/15/17 18:59) ANAPHYLAXIS almond oil Allergy (Verified 11/15/17 18:59) ANAPHYLAXIS Penicillins Allergy (Verified 11/15/17 18:59) ANAPHYLAXIS phenytoin Allergy (Verified 11/15/17 18:59) RASH levetiracetam [From [facility]] Adverse Reaction (Intermediate, Verified 11/15/17 18 :59) FATIGUE Extreme mood swing Home Medications: Home Meds Medication Instructions Recorded Confirmed Albuterol HFA [Ventolin HFA 90 0.09 mg IH PRN PRN 02/16/12 02/04/18 mcg/actuation (8 g)] Lamotrigine [Lamictal] 200 mg PO HS 02/16/12 02/04/18 Montelukast [Singulair] 10 mg PO DAILY 02/16/12 02/04/18 Albuterol 0.5% [Albuterol 0.5% 2.5 mg IH QID 05/04/13 02/04/18 Inhal Wendy (2.5 mg/0.5 ml) UD] QUEtiapine [Seroquel XR] 100 mg PO TID 01/31/14 02/04/18 QUEtiapine [Seroquel XR] 200 mg PO HS 01/31/14 02/04/18 clonazePAM [Klonopin] 1 mg PO TID 01/31/14 02/04/18 Cyanocobalamin [Vitamin B12 1000 1,000 mcg PO DAILY 03/11/16 02/04/18 mcg Tab] Naproxen [Naprosyn] 500 mg PO BID 03/11/16 02/04/18 Zolpidem [Ambien] 10 mg PO HS 03/11/16 02/04/18 hydrOXYzine Pamoate [Vistaril] 50 mg PO BID 03/11/16 02/04/18 Sumatriptan Succinate [Imitrex] 100 mg PO DAILY 02/04/18 02/04/18 Topiramate [Topamax] 25 mg PO BID 02/04/18 02/04/18 Review of Systems - Physician Review All systems were reviewed & negative as marked: Yes - Review of Systems Constitutional: Normal Eyes: Normal ENT: Normal Respiratory: Normal Cardiovascular: Normal Gastrointestinal: Normal Genitourinary Female: Normal Musculoskeletal: Normal Skin: Normal Neurological: Headache, Seizure Endocrine: Normal Hemo/Lymphatic: Normal Psychiatric: Normal Physical Exam Vital Signs Reviewed: Yes Vital Signs Temp Pulse Resp BP Pulse Ox 02/04/18 14:29 81 18 126/78 99 02/04/18 12:46 98.4 F 91 H 18 112/79 98 Temperature: Afebrile Blood Pressure: Normal Pulse: Regular Respiratory Rate: Normal Appearance: Positive for: Well-Appearing, Non-Toxic, Comfortable Pain Distress: None Mental Status: Positive for: Alert and Oriented X 3 Finger Stick Blood Glucose: 78 - Systems Exam Head: Present: Atraumatic, Normocephalic Pupils: Present: PERRL Extroacular Muscles: Present: EOMI Conjunctiva: Present: Normal Mouth: Present: Moist Mucous Membranes Neck: Present: Normal Range of Motion Respiratory/Chest: Present: Clear to Auscultation, Good Air Exchange. No: Respiratory Distress, Accessory Muscle Use Cardiovascular: Present: Regular Rate and Rhythm, Normal S1, S2. No: Murmurs Abdomen: No: Tenderness, Distention, Peritoneal Signs Back: Present: Normal Inspection Upper Extremity: Present: Normal Inspection. No: Cyanosis, Edema Lower Extremity: Present: Normal Inspection. No: Edema Neurological: Present: GCS=15, CN II-XII Intact, Speech Normal, Motor Func Grossly Intact, Normal Sensory Function, Normal Cerebellar Funct, Memory Normal , Other (No focal neurological deficit) Skin: Present: Warm, Dry, Normal Color. No: Rashes Psychiatric: Present: Alert, Oriented x 3, Normal Insight, Normal Concentration Medical Decision Making ED Course and Treatment: 02/04/18 13:34 Pt in emergency department for stated history. she was awake on arrival to emergency department . Lab ordered 1L NS, Keppra 1000mg, was ordered Head CT Pt had another seizure in emergency department and Ativan 2mg was ordered. She became AAO x3 s/p the seizure. 02/04/18 13:38 EKG NSR @91bpm 02/04/18 15:02 Pt seized again and was given another dose of Ativan 2mg. PT was monitored in emergency department and she had no seizure in emergency department . She was AAO x3. Have conversation with her who was by her bedside. Head CT HEMORRHAGE: No intracranial hemorrhage. BRAIN: Farr-white matter differentiation is preserved. There is no mass, mass effect or abnormal extra-axial fluid collection. There is no territorial infarction. 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 VENTRICLES: The ventricles are normal in size, shape and configuration. CALVARIUM: There is no calvarial fracture or extracranial soft tissue swelling. PARANASAL SINUSES: There is moderate polypoid mucosal thickening in the left maxillary sinus. The remaining included paranasal sinuses are clear. MASTOID AIR CELLS: Predominantly clear. OTHER FINDINGS: None. IMPRESSION: No acute intracranial abnormality. 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 Follow-up MRI is recommended is recommended to assess stability. Lab was unremarkable. All result was DW the pt. She requested for Keppra prescription. Case was DW Dr. Nieto and he recommends that pt continue with her Lamictal pending seeing her Neurologist. Pt states she have appointment with her Neurologist on February 23. - Lab Interpretations Lab Results: 02/04/18 12:50 02/04/18 12:50 Lab Results 02/04/18 12:50: Alcohol, Quantitative < 10 02/04/18 12:50: Sodium 142, Potassium 3.6, Chloride 105, Carbon Dioxide 23, Anion Gap 18, BUN 9, Creatinine 0.9, Est GFR ( Amer) > 60, Est GFR (Non- Af Amer) > 60, Random Glucose 83, Calcium 9.1, Magnesium 1.9, Total Bilirubin 0.5, AST 19, ALT 20, Alkaline Phosphatase 45, Total Creatine Kinase 84, Total Protein 7.9, Albumin 4.5, Globulin 3.4, Albumin/Globulin Ratio 1.3 02/04/18 12:50: WBC 10.4, RBC 4.53, Hgb 13.6, Hct 39.7, MCV 87.6, MCH 30.0, MCHC 34.3, RDW 13.8, Plt Count 383, MPV 10.4, Gran % 51.8, Lymph % (Auto) 39.8 H , [place] % (Auto) 6.8 H, Eos % (Auto) 1.2 L, Baso % (Auto) 0.4, Gran # 5.37, Lymph # (Auto) 4.1 H, [place] # (Auto) 0.7 H, Eos # (Auto) 0.1, Baso # (Auto) 0.04 - RAD Interpretation Radiology Orders: 02/04/18 12:52 HEAD W/O CONTRAST [CT] Stat - Medication Orders Current Medication Orders: Discontinued Medications Levetiracetam 1,000 mg/ Sodium (Chloride) 110 mls @ 440 mls/hr IV ONCE ONE Stop: 02/04/18 13:00 Last Admin: 02/04/18 13:10 Dose: 440 mls/hr eMAR Start Stop Document 02/04/18 13:10 EWO (Rec: 02/04/18 13:16 [email or web address] [id number]) Intravenous Solution Start Date 02/04/18 Start Time 13:10 End Date 02/04/18 End time 13:25 Total Infusion Time 15 Sodium Chloride (Sodium Chloride 0.9%) 1,000 mls @ 999 mls/hr IV .Q1H1M STA Stop: 02/04/18 13:45 Last Admin: 02/04/18 12:52 Dose: 999 mls/hr eMAR Start Stop Document 02/04/18 12:52 EWO (Rec: 02/04/18 12:52 [id number]) Intravenous Solution Start Date 02/04/18 Start Time 12:52 End Date 02/04/18 End time 13:52 Total Infusion Time 60 Ketorolac Tromethamine (Toradol) 30 mg IVP STAT STA Stop: 02/04/18 12:53 Last Admin: 02/04/18 13:27 Dose: 30 mg MAR Pain Assessment Document 02/04/18 13:27 EWO (Rec: 02/04/18 13:28 [id number] [id number]) Pain Reassessment Is this a pain reassessment? No Sleep Is patient sleeping during reassessment? 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 Description Constant Intensity of Pain at present 5 IVP Administration Document 02/04/18 13:27 EWO (Rec: 02/04/18 13:28 [email or web address] [id number]) Charges for Administration # of IVP Administrations 1 Lorazepam (Ativan) 2 mg IVP ONCE ONE PRN Reason: Protocol Stop: 02/04/18 13:03 Last Admin: 02/04/18 13:10 Dose: 2 mg IVP Administration Document 02/04/18 13:10 EWO (Rec: 02/04/18 13:16 EWO [id number]) Charges for Administration # of IVP Administrations 1 Disposition/Present on Arrival - Present on Arrival Any Indicators Present on Arrival: No History of DVT/PE: No History of Uncontrolled Diabetes: No Urinary Catheter: No History of Decub. Ulcer: No History Surgical Site Infection Following: None - Disposition Have Diagnosis and Disposition been Completed?: Yes Diagnosis: Status epilepticus Disposition: HOME/ ROUTINE Disposition Time: 14:50 Patient Plan: Discharge Patient Problems: Current Active Problems Problem Status Onset Status epilepticus Acute Condition: STABLE Discharge Instructions (ExitCare): Seizures, Adult (DC) Additional Instructions: Follow up with your Neurologist Continue with your medication as was directed Return to emergency department for any new or worsening symptoms Referrals: Virgie Tomas MD [Primary Care Provider] - Follow up with primary Forms: [employer] (Khmer)
--- NOTE | 2018-02-04 14:27 | CT ---
Date of service: 02/04/2018 PROCEDURE: CT HEAD WITHOUT CONTRAST. HISTORY: s/p seizure COMPARISON: Noncontrast head CT from 08/11/2017 an MRI brain without contrast from 08/12/2017. TECHNIQUE: Axial computed tomography images were obtained through the head/brain without intravenous contrast. Radiation dose: Total exam DLP = 988.16 mGy-cm. This CT exam was performed using one or more of the following dose reduction techniques: Automated exposure control, adjustment of the mA and/or kV according to patient size, and/or use of iterative reconstruction technique. FINDINGS: HEMORRHAGE: No intracranial hemorrhage. BRAIN: Farr-white matter differentiation is preserved. There is no mass, mass effect or abnormal extra-axial fluid collection. There is no territorial infarction. 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 VENTRICLES: The ventricles are normal in size, shape and configuration. CALVARIUM: There is no calvarial fracture or extracranial soft tissue swelling. PARANASAL SINUSES: There is moderate polypoid mucosal thickening in the left maxillary sinus. The remaining included paranasal sinuses are clear. MASTOID AIR CELLS: Predominantly clear. OTHER FINDINGS: None. IMPRESSION: No acute intracranial abnormality. 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 Follow-up MRI is recommended is recommended to assess stability.
[2018-02-04 14:29] VITALS: O2SAT 99
[2018-02-04 15:14] VITALS: BP 120/70; PULSE 82
--- NOTE | 2018-02-05 12:26 | CARD ---
APPROVED REPORT Date of service: 02/04/2018 EKG Measurement Heart [id number] <Conclusion> Normal sinus rhythm Possible Left atrial enlargement Cannot rule out Anterior infarct, age undetermined Abnormal ECG
== END 2018-02-04 15:14 | disposition home or self-care (01) ==
LOC: ED 12:36
DX: G40.901 Epilepsy, unspecified, not intractable, with status epilepticus (principal); F17.210 Nicotine dependence, cigarettes, uncomplicated; I10 Essential (primary) hypertension
CPT/HCPCS: 70450; 80053; 80320; 82550; 83735; 85025; 93005; 96361; 96374; 96375; 96376; 99285; J1885; J1953; J2060; J7030

== ENCOUNTER 2018-02-11 23:13 | Emergency (ER) | payer OTHER ==
[2018-02-11 23:13] VITALS: BMI 31.6
[2018-02-11] MEDS ORDERED: Sodium Chloride 0.9% 1,000 ML IV SCH (23:45)
--- NOTE | 2018-02-11 23:56 | ED PDOC ---
Arrival/HPI - General Chief Complaint: Seizure Time Seen by Provider: 02/11/18 23:17 Historian: Patient - History of Present Illness Narrative History of Present Illness (Text): 02/11/18 23:51 Leydi Lizama is a 33 year old female, whose past medical history includes asthma, atrophic kidney, psychogenic nonepileptic seizure disorder, anxiety, and bipolar disorder, who presents to the emergency department brought in by EMS status post witnessed seizure while at a convenience store prior to arrival. Patient notes her last seizure prior to today was a few days ago and notes she has been experiencing back pain since then. Patient states she regularly takes Lamictal and Klonopin. Patient also complaining of intermittent headache for the past few days and some occasional right eye blurriness. Patient was recently seen in the emergency department for similar complaints on 02/04/18 and discharged home. Patient denies any fever, chest pain, shortness of breath, abdominal pain, vomiting, diarrhea, neck pain, or any other complaints. Time/Duration: Prior to Arrival Symptom Onset: Sudden Activities at Onset: Light Context: Home Past Medical History - Provider Review Nursing Documentation Reviewed: Yes - Past History Past History: No Previous - Infectious Disease Hx of Infectious Diseases: None - Tetanus Immunization Tetanus Immunization: Up to Date, Unknown - Cardiac Hx Cardiac Disorders: Yes Hx WI: No Hx Hypertension: Yes Other/Comment: WI - Pulmonary Hx Respiratory Disorders: Yes Hx Asthma: Yes Hx Bronchitis: Yes - Neurological Hx Neurological Disorder: Yes Hx Migraine: Yes Hx Seizures: Yes - HEENT Hx HEENT Disorder: Yes Hx Epistaxis: Yes - Renal Hx Renal Disorder: Yes Hx Pyelonephritis: Yes - Endocrine/Metabolic Hx Endocrine Disorders: Yes Other/Comment: h/o adrenal mass - Hematological/Oncological Hx Blood Disorders: Yes Hx Cancer: Yes (cervix ca) - Integumentary Hx Dermatological Disorder: No - Musculoskeletal/Rheumatological Hx Musculoskeletal Disorders: Yes Hx Falls: Yes - Gastrointestinal Hx Gastrointestinal Disorders: Yes Hx Gastroesophageal Reflux: Yes - Genitourinary/Gynecological Hx Genitourinary Disorders: Yes Hx Cervical Cancer: Yes Hx Urinary Tract Infection: Yes - Psychiatric Hx Psychophysiologic Disorder: Yes Hx Bipolar Disorder: Yes Hx Substance Use: Yes - Past Surgical History Past Surgical History: No Previous - Surgical History Hx Cholecystectomy: Yes Hx Dilation and Curettage: Yes Other/Comment: adrenal removal on 03/07. - Anesthesia Hx Anesthesia: Yes Hx Anesthesia Reactions: Yes (states she woke up during surgeries) Hx Malignant Hyperthermia: No - Suicidal Assessment Feels Threatened In Home Enviroment: No Family/Social History - Physician Review Nursing Documentation Reviewed: Yes Family/Social History: Unknown Family HX Smoking Status: Heavy Smoker > 10 Cigarettes Daily Hx Alcohol Use: No Hx Substance Use: Yes Substance used: Marijuana Hx Substance Use Treatment: No Allergies/Home Meds Allergies/Adverse Reactions: Allergies almond Allergy (Verified 11/15/17 18:59) ANAPHYLAXIS almond oil Allergy (Verified 11/15/17 18:59) ANAPHYLAXIS Penicillins Allergy (Verified 11/15/17 18:59) ANAPHYLAXIS phenytoin Allergy (Verified 11/15/17 18:59) RASH levetiracetam [From [facility]] Adverse Reaction (Intermediate, Verified 11/15/17 18 :59) FATIGUE Extreme mood swing Home Medications: Home Meds Medication Instructions Recorded Confirmed Albuterol HFA [Ventolin HFA 90 0.09 mg IH PRN PRN 02/16/12 02/04/18 mcg/actuation (8 g)] Lamotrigine [Lamictal] 200 mg PO HS 02/16/12 02/04/18 Montelukast [Singulair] 10 mg PO DAILY 02/16/12 02/04/18 Albuterol 0.5% [Albuterol 0.5% 2.5 mg IH QID 05/04/13 02/04/18 Inhal Wendy (2.5 mg/0.5 ml) UD] QUEtiapine [Seroquel XR] 100 mg PO TID 01/31/14 02/04/18 QUEtiapine [Seroquel XR] 200 mg PO HS 01/31/14 02/04/18 clonazePAM [Klonopin] 1 mg PO TID 01/31/14 02/04/18 Cyanocobalamin [Vitamin B12 1000 1,000 mcg PO DAILY 03/11/16 02/04/18 mcg Tab] Naproxen [Naprosyn] 500 mg PO BID 03/11/16 02/04/18 Zolpidem [Ambien] 10 mg PO HS 03/11/16 02/04/18 hydrOXYzine Pamoate [Vistaril] 50 mg PO BID 03/11/16 02/04/18 Sumatriptan Succinate [Imitrex] 100 mg PO DAILY 02/04/18 02/04/18 Topiramate [Topamax] 25 mg PO BID 02/04/18 02/04/18 Review of Systems - Physician Review All systems were reviewed & negative as marked: Yes - Review of Systems Constitutional: Normal. absent: Fevers ENT: Normal Respiratory: Normal. absent: SOB, Cough Cardiovascular: Normal. absent: Chest Pain Gastrointestinal: Normal. absent: Abdominal Pain, Diarrhea, Nausea, Vomiting Genitourinary Female: Normal. absent: Dysuria, Frequency, Hematuria, Urine Output Changes Musculoskeletal: Back Pain. absent: Neck Pain Skin: Normal. absent: Rash Neurological: Headache, Seizure Endocrine: Normal Hemo/Lymphatic: Normal Psychiatric: Normal Physical Exam Vital Signs Reviewed: Yes Temperature: Afebrile Blood Pressure: Normal Pulse: Regular Respiratory Rate: Normal Appearance: Positive for: Well-Appearing, Non-Toxic, Comfortable Pain Distress: None Mental Status: Positive for: Alert and Oriented X 3 - Systems Exam Head: Present: Atraumatic, Normocephalic Pupils: Present: PERRL Extroacular Muscles: Present: EOMI Conjunctiva: Present: Normal Mouth: Present: Moist Mucous Membranes Neck: Present: Normal Range of Motion. No: Meningeal Signs, MIDLINE TENDERNESS , Paraspinal Tenderness Respiratory/Chest: Present: Clear to Auscultation, Good Air Exchange. No: Respiratory Distress, Accessory Muscle Use Cardiovascular: Present: Regular Rate and Rhythm, Normal S1, S2. No: Murmurs Abdomen: No: Tenderness, Distention, Peritoneal Signs Back: Present: Normal Inspection. No: CVA Tenderness, Midline Tenderness, Paraspinal Tenderness Upper Extremity: Present: Normal Inspection. No: Cyanosis, Edema Lower Extremity: Present: Normal Inspection. No: Edema Neurological: Present: GCS=15, CN II-XII Intact, Speech Normal, Motor Func Grossly Intact, Normal Sensory Function, Normal Cerebellar Funct, Memory Normal Skin: Present: Warm, Dry, Normal Color. No: Rashes Psychiatric: Present: Alert, Oriented x 3, Normal Insight, Normal Concentration Medical Decision Making ED Course and Treatment: 02/11/18 23:51 Impression: 33 year old female presents s/p witnessed seizure prior to arrival. Plan: -- CT Head w/o contrast -- EKG -- CXR -- Labs, caridac enzymes, alcohol level -- IV fluids -- Reassess and disposition Progress Notes: 02/12/18 02:08 Leaving Against Medical Advice (AMA): The patient is choosing to leave against medical advice. I have personally explained to the patient that choosing to do so may result in permanent bodily harm or . I have discussed at great length that without further evaluation and monitoring there may be unforeseen circumstances and/or deterioration causing permanent bodily harm or as a result of their choice. The patient is alert, oriented, and shows the mental capacity to make clear decisions regarding the patients health care at this time. The patient continues to wish to leave against medical advice. In light of the patients decision to leave against medical advice, patient is aware of the importance to following up as instructed. The patient has been advised that they should return to the emergency room immediately if they change their mind at any time, or if their condition begins to change or worsen in any way. - Lab Interpretations Lab Results: 02/12/18 00:40 02/12/18 00:40 Lab Results 02/12/18 00:40: WBC 7.3 D, RBC 4.07, Hgb 12.2, Hct 35.4 L, MCV 87.0, MCH 30.0, MCHC 34.5, RDW 13.2, Plt Count 314, MPV 10.0 02/12/18 00:40: Alcohol, Quantitative < 10 02/12/18 00:40: Sodium 141, Potassium 3.8, Chloride 104, Carbon Dioxide 27, Anion Gap 13, BUN 9, Creatinine 0.8, Est GFR ( Amer) > 60, Est GFR (Non- Af Amer) > 60, Random Glucose 93, Calcium 9.0, Total Bilirubin 0.5, AST 24, ALT 23, Alkaline Phosphatase 37 L, Lactate Dehydrogenase 415, Total Creatine Kinase 261 H, CK-MB (CK-2) 1.7, CK-MB (CK-2) % Cancelled, Troponin I < 0.01, Total Protein 6.5, Albumin 3.7, Globulin 2.8, Albumin/Globulin Ratio 1.3 I have reviewed the lab results: Yes - RAD Interpretation Radiology Orders: 02/11/18 23:51 HEAD W/O CONTRAST [CT] Stat CHEST PORTABLE [RAD] Stat - Medication Orders Current Medication Orders: Sodium Chloride (Sodium Chloride 0.9%) 1,000 mls @ 100 mls/hr IV .Q10H ROBERTO Last Admin: 02/12/18 00:47 Dose: 100 mls/hr eMAR Start Stop Document 02/12/18 00:47 EVELYNE (Rec: 02/12/18 00:47 JONavjot [facility] [id number]) Intravenous Solution Start Date 02/12/18 Start Time 00:47 - Scribe Statement The provider has reviewed the documentation as recorded by the Elv[employer] Foreman Provider Scribe Attestation: All medical record entries made by the Scribe were at my direction and personally dictated by me. I have reviewed the chart and agree that the record accurately reflects my personal performance of the history, physical exam, medical decision making, and the department course for this patient. I have also personally directed, reviewed, and agree with the discharge instructions and disposition. Disposition/Present on Arrival - Present on Arrival Any Indicators Present on Arrival: No History of DVT/PE: No History of Uncontrolled Diabetes: No Urinary Catheter: No History of Decub. Ulcer: No History Surgical Site Infection Following: None - Disposition Have Diagnosis and Disposition been Completed?: Yes Diagnosis: Seizure disorder, Recurrent seizures Disposition: AGAINST MEDICAL ADVICE Disposition Time: 02:10 Condition: STABLE Referrals: Virgie Tomas MD [Primary Care Provider] - Follow up with primary Forms: [employer] (Malay)
[2018-02-12 01:13] LABS: TROPONIN I < 0.01 ng/mL
[2018-02-12 01:18] LABS: ALB/GLOB RATIO 1.3 (1.1-1.8); ALBUMIN 3.7 g/dL (3.0-4.8); ALT/SGPT 23 U/L (7-56); AST/SGOT 24 U/L (14-36); BLOOD UREA NITROGEN 9 mg/dL (7-21); GFR AFRICAN-AMERICAN > 60; GFR NON-AFRICAN AMERICAN > 60
[2018-02-12 01:22] LABS: CK-MB 1.7 ng/mL (0.0-3.6)
[2018-02-12 01:52] LABS: HEMOGLOBIN 12.2 g/dL (12.0-16.0); MEAN CORPUSCULAR HGB CONC 34.5 g/dl (31.0-37.0); RBC 4.07 10^6/uL (3.5-6.1); RED CELL DISTRIBUTION WIDTH 13.2 % (11.5-14.5); WHITE BLOOD COUNT 7.3 10^3/ul (4.5-11.0)
== END 2018-02-12 02:05 | disposition left against medical advice (07) ==
LOC: ED 23:13
DX: G40.909 Epilepsy, unspecified, not intractable, without status epilepticus (principal); I10 Essential (primary) hypertension; F17.210 Nicotine dependence, cigarettes, uncomplicated
CPT/HCPCS: 80053; 80320; 82550; 82553; 83615; 84484; 85027; 99285; J7030

== ENCOUNTER 2018-03-30 13:33 | Emergency (ER) | payer OTHER ==
[2018-03-30 13:58] VITALS: BMI 31.8
[2018-03-30] MEDS ORDERED: Morphine 4 mg/ml ISec IVP STA ×2 (14:06→16:52)
[2018-03-30] MEDS ORDERED: Sodium Chloride 0.9% 1,000 ML IV STA (14:06)
--- NOTE | 2018-03-30 14:29 | ED PDOC ---
Arrival/HPI - General Time Seen by Provider: 03/30/18 14:05 Historian: Patient - History of Present Illness Narrative History of Present Illness (Text): 03/30/18 14:24 33 year old female, whose past medical history includes asthma, atrophic kidney , psychogenic nonepileptic seizure disorder, anxiety, bipolar disorder, and ovarian cysts, presents to the emergency department complaining of right lower quadrant pain for the past day. Patient describes the pain as a burning sharp pain in her right lower quadrant. Patient reports the pain started mid of abdomen and is now moving to the right side. Patient has a history of ovarian cyst, but states that this is not the same kind of pain. Patient reports subjective fever and nausea, but denies any chills, chest pain, shortness of breath, vomiting, constipation, diarrhea, vaginal discharge/bleeding, urinary symptoms, back pain, neck pain, headache, dizziness, or any other complaints. PMD: Dr. Pritesh Tomas Time/Duration: 24 hours Symptom Onset: Sudden Quality: Burning (and sharp) Activities at Onset: Light Context: Home Past Medical History - Provider Review Nursing Documentation Reviewed: Yes - Past History Past History: No Previous - Infectious Disease Hx of Infectious Diseases: None - Tetanus Immunization Tetanus Immunization: Up to Date, Unknown - Cardiac Hx Cardiac Disorders: Yes Hx MA: No Hx Hypertension: Yes Other/Comment: MA - Pulmonary Hx Respiratory Disorders: Yes Hx Asthma: Yes Hx Bronchitis: Yes - Neurological Hx Neurological Disorder: Yes Hx Migraine: Yes Hx Seizures: Yes - HEENT Hx HEENT Disorder: Yes Hx Epistaxis: Yes - Renal Hx Renal Disorder: Yes Hx Pyelonephritis: Yes - Endocrine/Metabolic Hx Endocrine Disorders: Yes Other/Comment: h/o adrenal mass - Hematological/Oncological Hx Blood Disorders: Yes Hx Cancer: Yes (cervix ca) - Integumentary Hx Dermatological Disorder: No - Musculoskeletal/Rheumatological Hx Musculoskeletal Disorders: Yes Hx Falls: Yes - Gastrointestinal Hx Gastrointestinal Disorders: Yes Hx Gastroesophageal Reflux: Yes - Genitourinary/Gynecological Hx Genitourinary Disorders: Yes Hx Cervical Cancer: Yes Hx Urinary Tract Infection: Yes - Psychiatric Hx Psychophysiologic Disorder: Yes Hx Bipolar Disorder: Yes Hx Substance Use: Yes - Past Surgical History Past Surgical History: No Previous - Surgical History Hx Cholecystectomy: Yes Hx Dilation and Curettage: Yes Other/Comment: adrenal removal on 03/07. - Anesthesia Hx Anesthesia: Yes Hx Anesthesia Reactions: Yes (states she woke up during surgeries) Hx Malignant Hyperthermia: No - Suicidal Assessment Feels Threatened In Home Enviroment: No Family/Social History - Physician Review Nursing Documentation Reviewed: Yes Family/Social History: No Known Family HX Smoking Status: Heavy Smoker > 10 Cigarettes Daily Hx Alcohol Use: No Hx Substance Use: Yes Substance used: Marijuana Hx Substance Use Treatment: No Allergies/Home Meds Allergies/Adverse Reactions: Allergies almond Allergy (Verified 03/30/18 14:34) ANAPHYLAXIS almond oil Allergy (Verified 03/30/18 14:34) ANAPHYLAXIS Penicillins Allergy (Verified 03/30/18 14:34) ANAPHYLAXIS phenytoin Allergy (Verified 03/30/18 14:34) RASH levetiracetam [From [facility]] Adverse Reaction (Intermediate, Verified 03/30/18 14 :34) FATIGUE Extreme mood swing Home Medications: Home Meds Medication Instructions Recorded Confirmed Albuterol HFA [Ventolin HFA 90 0.09 mg IH PRN PRN 02/16/12 02/04/18 mcg/actuation (8 g)] Lamotrigine [Lamictal] 200 mg PO HS 02/16/12 02/04/18 Montelukast [Singulair] 10 mg PO DAILY 02/16/12 02/04/18 Albuterol 0.5% [Albuterol 0.5% 2.5 mg IH QID 05/04/13 02/04/18 Inhal Wendy (2.5 mg/0.5 ml) UD] QUEtiapine [Seroquel XR] 100 mg PO TID 01/31/14 02/04/18 QUEtiapine [Seroquel XR] 200 mg PO HS 01/31/14 02/04/18 clonazePAM [Klonopin] 1 mg PO TID 01/31/14 02/04/18 Cyanocobalamin [Vitamin B12 1000 1,000 mcg PO DAILY 03/11/16 02/04/18 mcg Tab] Naproxen [Naprosyn] 500 mg PO BID 03/11/16 02/04/18 Zolpidem [Ambien] 10 mg PO HS 03/11/16 02/04/18 hydrOXYzine Pamoate [Vistaril] 50 mg PO BID 03/11/16 02/04/18 Sumatriptan Succinate [Imitrex] 100 mg PO DAILY 02/04/18 02/04/18 Topiramate [Topamax] 25 mg PO BID 02/04/18 02/04/18 Review of Systems - Physician Review All systems were reviewed & negative as marked: Yes - Review of Systems Constitutional: Fevers. absent: Other (Chills) Respiratory: absent: SOB Cardiovascular: absent: Chest Pain Gastrointestinal: Abdominal Pain, Nausea. absent: Constipation, Diarrhea, Vomiting Genitourinary Female: absent: Dysuria, Frequency, Hematuria, Vaginal Bleeding, Vaginal Discharge Musculoskeletal: absent: Back Pain, Neck Pain Neurological: absent: Headache, Dizziness Physical Exam Vital Signs Reviewed: Yes Vital Signs Temp Pulse Resp BP Pulse Ox 03/30/18 18:41 98.6 F 84 16 126/80 100 03/30/18 17:00 91 H 18 128/84 99 03/30/18 13:57 99.0 F 100 H 18 136/84 98 Temperature: Afebrile Blood Pressure: Normal Pulse: Tachycardic Respiratory Rate: Normal Appearance: Positive for: Well-Appearing, Non-Toxic, Comfortable Pain Distress: None Mental Status: Positive for: Alert and Oriented X 3 - Systems Exam Head: Present: Atraumatic, Normocephalic Pupils: Present: PERRL Extroacular Muscles: Present: EOMI Conjunctiva: Present: Normal Mouth: Present: Moist Mucous Membranes Neck: Present: Normal Range of Motion Respiratory/Chest: Present: Clear to Auscultation, Good Air Exchange. No: Respiratory Distress, Accessory Muscle Use Cardiovascular: Present: Regular Rate and Rhythm, Normal S1, S2. No: Murmurs Abdomen: Present: Tenderness (Right lower quadrant tenderness). No: Distention , Peritoneal Signs Back: Present: Normal Inspection Upper Extremity: Present: Normal Inspection. No: Cyanosis, Edema Lower Extremity: Present: Normal Inspection. No: Edema Neurological: Present: GCS=15, CN II-XII Intact, Speech Normal Skin: Present: Warm, Dry, Normal Color. No: Rashes Psychiatric: Present: Alert, Oriented x 3, Normal Insight, Normal Concentration Medical Decision Making ED Course and Treatment: 03/30/18 14:05 Impression: 33 year old female presents complaining of right lower quadrant pain associated with subjective fever and nausea for the past day. Plan: -- CT Abd & pelvis IV Contrast only -- Labs -- Morphine, Reglan, IV Fluids -- Urinalysis -- Reassess and disposition Prior Visits: Notes and results from previous visits were reviewed. Progress Notes: PROCEDURE: CT Abdomen and Pelvis without intravenous contrast Dictator : Adebayo Martinez MD Report Date : 03/30/2018 16:19:52 03/30/18 16:21 FINDINGS: LOWER THORAX: Unremarkable. LIVER: Unremarkable. No gross lesion or ductal dilatation. GALLBLADDER AND BILE DUCTS: Gallbladder removed PANCREAS: Unremarkable. No gross lesion or ductal dilatation. SPLEEN: Unremarkable. ADRENALS: Unremarkable. No mass. KIDNEYS AND URETERS: Severe atrophy of the left kidney VASCULATURE: Unremarkable. No aortic aneurysm. BOWEL: Unremarkable. No obstruction. No gross mural thickening. APPENDIX: Unremarkable. Normal appendix. PERITONEUM: Unremarkable. No free fluid. No free air. There is a fat containing hernia in the upper abdomen to the left side of the rectus muscle. The hernia defect measures 12 mm in diameter. LYMPH NODES: Unremarkable. No enlarged lymph nodes. BLADDER: Unremarkable. REPRODUCTIVE: Unremarkable. BONES: No acute fracture. OTHER FINDINGS: None. IMPRESSION: No acute intra-abdominal findings. Normal appendix 03/30/18 18:32 U/s shows R sided ovarian cyst. Patient is denying vaginal discharge and refusing pelvic exam. Reports she feels better and wants to go home. She was made aware of her hematuria. She denies dysuria. She reports that she is feeling better. She is tolerating po and wants to be discharged. - Lab Interpretations Lab Results: 03/30/18 14:30 03/30/18 14:30 Lab Results 03/30/18 14:30: Sodium 141, Potassium 3.9, Chloride 106, Carbon Dioxide 23, Anion Gap 15, BUN 14, Creatinine 1.6 H, Est GFR ( Amer) 44, Est GFR (Non- Af Amer) 37, Random Glucose 100, Calcium 9.5, Total Bilirubin 0.3, AST 21, ALT 8 , Alkaline Phosphatase 43, Total Protein 7.9, Albumin 4.7, Globulin 3.2, Albumin /Globulin Ratio 1.4, Lipase 100 03/30/18 14:30: Urine Color Yellow, Urine Appearance Sl cloudy, Urine pH 6.0, Ur Specific [place] >= 1.030, Urine Protein 30 H, Urine Glucose (UA) Negative, Urine Ketones Trace H, Urine Blood Large H, Urine Nitrate Negative, Urine Bilirubin Negative, Urine Urobilinogen 0.2, Ur Leukocyte Esterase Negative, Urine RBC 20 - 25, Urine WBC 2 - 5, Ur Epithelial Cells Many, Amorphous Sediment Few, Urine Bacteria Many, Fine Granular Casts 0 - 2, Urine Other Uyeast 03/30/18 14:30: WBC 10.0 D, RBC 4.24, Hgb 13.2, Hct 36.9, MCV 87.0, MCH 31.1, MCHC 35.8, RDW 13.6, Plt Count 296, MPV 10.5, Gran % 65.9, Lymph % (Auto) 26.3, [place] % (Auto) 7.0 H, Eos % (Auto) 0.6 L, Baso % (Auto) 0.2, Gran # 6.61 H, Lymph # (Auto) 2.6, [place]ary # (Auto) 0.7 H, Eos # (Auto) 0.1, Baso # (Auto) 0.02 I have reviewed the lab results: Yes - RAD Interpretation Radiology Orders: 03/30/18 14:05 ABD & PELVIS W/O PO OR IV CONT [CT] Stat 03/30/18 16:52 Pelvis [PELVIS ULTRASOUND] [US] Routine - Medication Orders Current Medication Orders: Discontinued Medications Sodium Chloride (Sodium Chloride 0.9%) 1,000 mls @ 999 mls/hr IV .Q1H1M STA Stop: 03/30/18 15:06 Last Admin: 03/30/18 14:44 Dose: 999 mls/hr eMAR Start Stop Document 03/30/18 14:44 [facility] [place] (Rec: 03/30/18 14:44 [id number] Intravenous Solution Start Date 03/30/18 Start Time 14:44 End Date 03/30/18 End time 15:45 Total Infusion Time 61 Metoclopramide HCl (Reglan) 10 mg IVP STAT STA Stop: 03/30/18 14:07 Last Admin: 03/30/18 14:43 Dose: 10 mg IVP Administration Document 03/30/18 14:43 [facility] [place] (Rec: 03/30/18 14:43 [id number] Charges for Administration # of IVP Administrations 1 Morphine Sulfate (Morphine) 4 mg IVP STAT STA Stop: 03/30/18 14:07 Last Admin: 03/30/18 14:43 Dose: 4 mg MAR Pain Assessment Document 03/30/18 14:43 [facility] (Rec: 03/30/18 14:44 [facility] [id number]) Pain Reassessment Is this a pain reassessment? No Sleep Is patient sleeping during reassessment? No Presence of Pain Presence of Pain Yes Pain Scale Used Pain Scale Used Numeric Location Left, Right or Bilateral Bilateral Pain Location Body Site Abdomen Description Intensity of Pain at present 10 IVP Administration Document 03/30/18 14:43 [facility] (Rec: 03/30/18 14:44 [facility] [id number]) Charges for Administration # of IVP Administrations 1 Morphine Sulfate (Morphine) 4 mg IVP STAT STA Stop: 03/30/18 16:53 Last Admin: 03/30/18 17:15 Dose: 4 mg MAR Pain Assessment Document 03/30/18 17:15 [facility] (Rec: 03/30/18 17:16 [facility] [id number]) Pain Reassessment Is this a pain reassessment? Yes Sleep Is patient sleeping during reassessment? No Presence of Pain Presence of Pain Yes Pain Scale Used Pain Scale Used Numeric Location Pain Location Body Site Abdomen Description Intensity of Pain at present 8 IVP Administration Document 03/30/18 17:15 [facility] (Rec: 03/30/18 17:16 [facility] [id number]) Charges for Administration # of IVP Administrations 1 - Scribe Statement The provider has reviewed the documentation as recorded by the Meka Henriquez Provider Scribe Attestation: All medical record entries made by the Meka were at my direction and personally dictated by me. I have reviewed the chart and agree that the record accurately reflects my personal performance of the history, physical exam, medical decision making, and the department course for this patient. I have also personally directed, reviewed, and agree with the discharge instructions and disposition. Disposition/Present on Arrival - Present on Arrival Any Indicators Present on Arrival: No History of DVT/PE: No History of Uncontrolled Diabetes: No Urinary Catheter: No History Surgical Site Infection Following: None - Disposition Have Diagnosis and Disposition been Completed?: Yes Diagnosis: Hematuria, Abdominal pain, Ovarian cyst Disposition: HOME/ ROUTINE Disposition Time: 18:33 Patient Plan: Discharge Condition: GOOD Discharge Instructions (ExitCare): Ovarian Cysts, Blood in the Urine (Hematuria ), Adult (DC) Additional Instructions: Follow-up with PMD within 2 days. Follow-up for further evaluation of hematuria and ovarian cysts. Return to ED if condition worsens. Referrals: Virgie Tomas MD [Primary Care Provider] - Follow up with primary Forms: [employer] ([place])
[2018-03-30 14:41] LABS: BASO # 0.02 K/mm3 (0.0-2.0); BASO % 0.2 % (0.0-3.0); EOS # 0.1 (0.0-0.7); EOS % 0.6 % (1.5-5.0); GRAN # 6.61 (1.4-6.5); GRAN % 65.9 % (50.0-68.0); HEMOGLOBIN 13.2 g/dL (12.0-16.0); LYMPH # 2.6 (1.2-3.4); LYMPH % 26.3 % (22.0-35.0); MEAN CORPUSCULAR HEMOGLOBIN 31.1 pg (25.0-35.0); MEAN CORPUSCULAR HGB CONC 35.8 g/dl (31.0-37.0); MEAN PLATELET VOLUME 10.5 fl (7.0-11.0); MONO # 0.7 (0.1-0.6); RBC 4.24 10^6/uL (3.5-6.1); RED CELL DISTRIBUTION WIDTH 13.6 % (11.5-14.5); URINE BILIRUBIN NEGATIVE (NEGATIVE); URINE BLOOD LARGE (NEGATIVE); URINE GLUCOSE (UA) NEGATIVE (NEGATIVE); URINE LEUKOCYTE ESTERASE NEGATIVE Leu/uL (NEGATIVE); URINE PROTEIN 30 mg/dL (<30 mg/dL); URINE UROBILINOGEN 0.2 E.U./dL (<1 E.U./dL)
[2018-03-30 14:42] LABS: URINE APPEARANCE SL CLOUDY (CLEAR); URINE COLOR YELLOW (YELLOW)
[2018-03-30 14:51] LABS: URINE BACTERIA MANY (NEG); URINE RBC 20 - 25 /hpf (0-2)
[2018-03-30 14:52] LABS: URINE AMORPHOUS SEDIMENT FEW; URINE EPITHELIAL CELLS MANY /hpf (0-5); URINE FINE GRANULAR CAST 0 - 2 /hpf (0-2)
[2018-03-30 14:53] LABS: ALB/GLOB RATIO 1.4 (1.1-1.8); ALBUMIN 4.7 g/dL (3.0-4.8); CALCIUM 9.5 mg/dL (8.4-10.5)
--- NOTE | 2018-03-30 16:21 | CT ---
Date of service: 03/30/2018 PROCEDURE: CT Abdomen and Pelvis without intravenous contrast HISTORY: RLQ pain COMPARISON: None. TECHNIQUE: Without contrast.. Contrast dose: Radiation dose: Total exam DLP = 944 mGy-cm. This CT exam was performed using one or more of the following dose reduction techniques: Automated exposure control, adjustment of the mA and/or kV according to patient size, and/or use of iterative reconstruction technique. FINDINGS: LOWER THORAX: Unremarkable. LIVER: Unremarkable. No gross lesion or ductal dilatation. GALLBLADDER AND BILE DUCTS: Gallbladder removed PANCREAS: Unremarkable. No gross lesion or ductal dilatation. SPLEEN: Unremarkable. ADRENALS: Unremarkable. No mass. KIDNEYS AND URETERS: Severe atrophy of the left kidney VASCULATURE: Unremarkable. No aortic aneurysm. BOWEL: Unremarkable. No obstruction. No gross mural thickening. APPENDIX: Unremarkable. Normal appendix. PERITONEUM: Unremarkable. No free fluid. No free air. There is a fat containing hernia in the upper abdomen to the left side of the rectus muscle. The hernia defect measures 12 mm in diameter. LYMPH NODES: Unremarkable. No enlarged lymph nodes. BLADDER: Unremarkable. REPRODUCTIVE: Unremarkable. BONES: No acute fracture. OTHER FINDINGS: None. IMPRESSION: No acute intra-abdominal findings. Normal appendix
[2018-03-30 18:41] VITALS: BP 126/80; PULSE 84; RESP 16; TEMP 98.6
[2018-03-30 18:42] VITALS: O2SAT 100
--- NOTE | 2018-03-31 13:15 | US ---
Date of service: 03/30/2018 HISTORY: R sided pelvic pain COMPARISON: None available. TECHNIQUE: Real-time transabdominal pelvic ultrasound was performed. In addition a transvaginal pelvic ultrasound was necessary to better depict pelvic anatomy. FINDINGS: UTERUS: Measures 6.3 x 2.3 x 4.4 cm. ENDOMETRIUM: Measures 6 mm in diameter. CERVIX: No cervical abnormality identified. RIGHT OVARY: Measures 3.9 x 2.1 x 3.1 cm. Blood flow is demonstrated. 2.8 x 1.7 x 2.5 cm right dominant ovarian follicle. LEFT OVARY: Measures 4.0 x 1.9 x 3.7 cm. Blood flow is demonstrated. FREE FLUID: No significant free fluid noted. OTHER FINDINGS: None. IMPRESSION: Unremarkable pelvic ultrasound as above. Preliminary impression was provided by virtual radiologic.
== END 2018-03-30 18:43 | disposition home or self-care (01) ==
LOC: ED 13:33
DX: N83.201 Unspecified ovarian cyst, right side (principal); R31.9 Hematuria, unspecified; R10.9 Unspecified abdominal pain
CPT/HCPCS: 74176; 76856; 80053; 81001; 83690; 85025; 96361; 96374; 96375; 96376; 99284; J2270; J2765; J7030

== ENCOUNTER 2018-05-16 18:24 | Emergency (ER) | payer OTHER ==
[2018-05-16 18:25] VITALS: BMI 31.9
[2018-05-16 19:10] LABS: BASO # 0.04 K/mm3 (0.0-2.0); BASO % 0.5 % (0.0-3.0); EOS # 0.1 (0.0-0.7); EOS % 1.5 % (1.5-5.0); GRAN # 3.51 (1.4-6.5); GRAN % 44.9 % (50.0-68.0); HEMOGLOBIN 13.7 g/dL (12.0-16.0); LYMPH # 3.5 (1.2-3.4); LYMPH % 45.1 % (22.0-35.0); MEAN CORPUSCULAR HEMOGLOBIN 30.4 pg (25.0-35.0); MEAN CORPUSCULAR HGB CONC 34.5 g/dl (31.0-37.0); MEAN PLATELET VOLUME 10.9 fl (7.0-11.0); MONO # 0.6 (0.1-0.6); RBC 4.51 10^6/uL (3.5-6.1); RED CELL DISTRIBUTION WIDTH 13.8 % (11.5-14.5); WHITE BLOOD COUNT 7.8 10^3/uL (4.5-11.0)
--- NOTE | 2018-05-16 19:14 | ED PDOC ---
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 Patient states she was outside when she began to feel "sick" and "feeling in and out" several times throughout the day. Upon arriving home, patient reportedly "spaced out" and experienced a seizure prompting her to present to the Emergency Department for medical evaluation. Patient presents no other medical complaints. Patient denies any tongue biting or urinary incon tinence. Patient denies any fever, chills, nausea, vomiting, diarrhea, abdominal pain, chest pain, shortness of breath, cough, headache, dizziness, neck pain, back pain, or any other complaints. Time/Duration: Prior to Arrival Symptom Onset: Gradual Activities at Onset: Light Context: Home Past Medical History - Provider Review Nursing Documentation Reviewed: Yes - Past History Past History: No Previous - Infectious Disease Hx of Infectious Diseases: None - Tetanus Immunization Tetanus Immunization: Up to Date, Unknown - Reproductive Menopause: No - Cardiac Hx Cardiac Disorders: Yes Hx NV: No Hx Hypertension: Yes Other/Comment: NV - Pulmonary Hx Respiratory Disorders: Yes Hx Asthma: Yes Hx Bronchitis: Yes - Neurological Hx Neurological Disorder: Yes Hx Migraine: Yes Hx Seizures: Yes - HEENT Hx HEENT Disorder: Yes Hx Epistaxis: Yes - Renal Hx Renal Disorder: Yes Hx Pyelonephritis: Yes - Endocrine/Metabolic Hx Endocrine Disorders: Yes Other/Comment: h/o adrenal mass - Hematological/Oncological Hx Blood Disorders: Yes Hx Cancer: Yes (cervix ca) - Integumentary Hx Dermatological Disorder: No - Musculoskeletal/Rheumatological Hx Musculoskeletal Disorders: Yes Hx Falls: Yes - Gastrointestinal Hx Gastrointestinal Disorders: Yes Hx Gastroesophageal Reflux: Yes - Genitourinary/Gynecological Hx Genitourinary Disorders: Yes Hx Cervical Cancer: Yes Hx Urinary Tract Infection: Yes - Psychiatric Hx Psychophysiologic Disorder: Yes Hx Bipolar Disorder: Yes Hx Substance Use: Yes - Past Surgical History Past Surgical History: No Previous - Surgical History Hx Cholecystectomy: Yes Hx Dilation and Curettage: Yes Other/Comment: adrenal removal on 03/07. - Anesthesia Hx Anesthesia: Yes Hx Anesthesia Reactions: Yes (states she woke up during surgeries) Hx Malignant Hyperthermia: No - Suicidal Assessment Feels Threatened In Home Enviroment: No Family/Social History - Physician Review Nursing Documentation Reviewed: Yes Family/Social History: Unknown Family HX Smoking Status: Heavy Smoker > 10 Cigarettes Daily Hx Alcohol Use: No Hx Substance Use: Yes Substance used: Marijuana Hx Substance Use Treatment: No Allergies/Home Meds Allergies/Adverse Reactions: Allergies almond Allergy (Verified 05/16/18 18:51) ANAPHYLAXIS almond oil Allergy (Verified 05/16/18 18:51) ANAPHYLAXIS Penicillins Allergy (Verified 05/16/18 18:51) ANAPHYLAXIS phenytoin Allergy (Verified 05/16/18 18:51) RASH levetiracetam [From [facility]] Adverse Reaction (Intermediate, Verified 05/16/18 18:51) FATIGUE Extreme mood swing Home Medications: Home Meds Medication Instructions Recorded Confirmed RX: Albuterol HFA [Ventolin HFA 90 0.09 mg IH PRN PRN 02/16/12 02/04/18 mcg/actuation (8 g)] RX: Lamotrigine [Lamictal] 200 mg PO HS 02/16/12 02/04/18 RX: Montelukast [Singulair] 10 mg PO DAILY 02/16/12 02/04/18 RX: Albuterol 0.5% [Albuterol 0.5% 2.5 mg IH QID 05/04/13 02/04/18 Inhal Wendy (2.5 mg/0.5 ml) UD] RX: QUEtiapine [Seroquel XR] 100 mg PO TID 01/31/14 02/04/18 RX: QUEtiapine [Seroquel XR] 200 mg PO HS 01/31/14 02/04/18 RX: clonazePAM [Klonopin] 1 mg PO TID 01/31/14 02/04/18 RX: Cyanocobalamin [Vitamin B12 1,000 mcg PO DAILY 03/11/16 02/04/18 1000 mcg Tab] RX: Naproxen [Naprosyn] 500 mg PO BID 03/11/16 02/04/18 RX: Zolpidem [Ambien] 10 mg PO HS 03/11/16 02/04/18 RX: hydrOXYzine Pamoate [Vistaril] 50 mg PO BID 03/11/16 02/04/18 Sumatriptan Succinate [Imitrex] 100 mg PO DAILY 02/04/18 02/04/18 Topiramate [Topamax] 25 mg PO BID 02/04/18 02/04/18 Review of Systems - Physician Review All systems were reviewed & negative as marked: Yes - Review of Systems Constitutional: absent: Fevers Respiratory: absent: SOB, Cough Cardiovascular: absent: Chest Pain Gastrointestinal: absent: Abdominal Pain, Diarrhea, Nausea, Vomiting Musculoskeletal: absent: Back Pain, Neck Pain Neurological: Seizure. absent: Headache, Dizziness Physical Exam Respiratory Rate: Normal Appearance: Positive for: Well-Appearing, Non-Toxic, Comfortable Pain Distress: None Mental Status: Positive for: Alert and Oriented X 3 - Systems Exam Head: Present: Atraumatic, Normocephalic Pupils: Present: PERRL Extroacular Muscles: Present: EOMI Conjunctiva: Present: Normal Mouth: Present: Moist Mucous Membranes Neck: Present: Normal Range of Motion Respiratory/Chest: Present: Clear to Auscultation, Good Air Exchange. No: Respiratory Distress, Accessory Muscle Use Cardiovascular: Present: Regular Rate and Rhythm, Normal S1, S2. No: Murmurs Abdomen: No: Tenderness, Distention, Peritoneal Signs Back: Present: Normal Inspection Upper Extremity: Present: Normal Inspection. No: Cyanosis, Edema Lower Extremity: Present: Normal Inspection. No: Edema Neurological: Present: GCS=15, CN II-XII Intact, Speech Normal Skin: Present: Warm, Dry, Normal Color. No: Rashes Psychiatric: Present: Alert, Oriented x 3, Normal Insight, Normal Concentration Medical Decision Making ED Course and Treatment: 05/16/18 18:54 Impression: 33 year old female presents to the Emergency Department s/p seizure. Plan: -- CT of head -- Labs -- Urinalysis -- Reassess and disposition Prior Visits: Notes and results from previous visits were reviewed. Progress Notes: 05/16/18 20:[address] neg. stable fordc. 05/16/18 20:16 in er, pt had ?seizure, rn gave ativan prior to my assessment. upon my assessment, pt awake alert, suspect pseudoseizure. no post ictal period. - RAD Interpretation Narrative RAD Interpretations (Text): 05/16/18 19:49 CT of Head reviewed by radiologist, shows: FINDINGS: BRAIN No acute intraparenchymal hemorrhage. No mass lesion. No CT evidence for acute territorial infarct. No midline shift or extra-axial collections. VENTRICLES: No hydrocephalus. ORBITS: The orbits are unremarkable. SINUSES AND MASTOIDS: The paranasal sinuses and mastoid air cells are clear. BONES: No fracture. SOFT TISSUES: Unremarkable. IMPRESSION: No acute intracranial abnormality. Radiology Orders: 05/16/18 18:54 HEAD W/O CONTRAST [CT] Stat Cardiology Associate: Radiologist - Scribe Statement The provider has reviewed the documentation as recorded by the Scribe Amira Kulkarni. All medical record entries made by the Scribe were at my direction and personally dictated by me. I have reviewed the chart and agree that the record accurately reflects my personal performance of the history, physical exam, medi slade decision making, and the department course for this patient. I have also personally directed, reviewed, and agree with the discharge instructions and disposition. Disposition/Present on Arrival - Present on Arrival Any Indicators Present on Arrival: No History of DVT/PE: No History of Uncontrolled Diabetes: No Urinary Catheter: No History of Decub. Ulcer: No History Surgical Site Infection Following: None - Disposition Have Diagnosis and Disposition been Completed?: Yes Diagnosis: Seizure Disposition: HOME/ ROUTINE Disposition Time: 06:00 Patient Problems: Current Active Problems Problem Status Onset Seizure Acute Condition: STABLE Discharge Instructions (ExitCare): Seizures, Adult (DC) Additional Instructions: return to er with worsening symptoms or concerns. Referrals: Jonnathan Nieto MD [Staff Provider] - Follow up with primary Forms: [employer] ([place])
[2018-05-16 19:16] VITALS: PULSE 80; RESP 18; TEMP 98
[2018-05-16 19:18] LABS: ALB/GLOB RATIO 1.3 (1.1-1.8); ALBUMIN 4.4 g/dL (3.0-4.8); ALT/SGPT 24 U/L (7-56); AST/SGOT 17 U/L (14-36); BLOOD UREA NITROGEN 15 mg/dL (7-21); CALCIUM 9.1 mg/dL (8.4-10.5); GFR NON-AFRICAN AMERICAN 51
[2018-05-16 20:31] VITALS: BP 132/77; O2SAT 100
--- NOTE | 2018-05-17 09:12 | CT ---
Date of service: 05/16/2018 PROCEDURE: CT HEAD WITHOUT CONTRAST. HISTORY: seizure COMPARISON: None available. TECHNIQUE: Axial computed tomography images were obtained through the head/brain without intravenous contrast. Radiation dose: Total exam DLP = 914.83 mGy-cm. This CT exam was performed using one or more of the following dose reduction techniques: Automated exposure control, adjustment of the mA and/or kV according to patient size, and/or use of iterative reconstruction technique. FINDINGS: HEMORRHAGE: No intracranial hemorrhage. BRAIN: No mass effect or edema. No atrophy or chronic microvascular ischemic changes. VENTRICLES: Unremarkable. No hydrocephalus. CALVARIUM: Unremarkable. PARANASAL SINUSES: Unremarkable as visualized. No significant inflammatory changes. MASTOID AIR CELLS: Unremarkable as visualized. No inflammatory changes. OTHER FINDINGS: The report concurs with the preliminary [facility] report IMPRESSION: No acute findings
== END 2018-05-16 20:31 | disposition home or self-care (01) ==
LOC: ED 18:24
DX: R56.9 Unspecified convulsions (principal); I10 Essential (primary) hypertension; Z85.41 Personal history of malignant neoplasm of cervix uteri; F17.210 Nicotine dependence, cigarettes, uncomplicated
CPT/HCPCS: 70450; 80053; 80320; 82948; 85025; 96374; 99285; J2060

== ENCOUNTER 2018-06-01 10:03 | Emergency (ER) | payer OTHER ==
[2018-06-01 10:04] VITALS: BMI 31.9
--- NOTE | 2018-06-01 10:37 | ED PDOC ---
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 The patient states the seizure was witnessed by her mother and states she hit her head. She denies biting of her tongue, or urinary or fecal incontinence. Patient has an appointment today with Dr Ramos a seizure specialist today. Patient denies any chest pain, shortness of breath, fevers, chills, nausea, vomiting, headaches, or any other complaints. PMD: Dr. Evans Tomas Time/Duration: Prior to Arrival Symptom Onset: Sudden Symptom Course: Unchanged Quality: Other Severity Level: 1 Activities at Onset: Rest Context: Sitting <Olu Sarabia - Last Filed: 06/01/18 17:30> - General Chief Complaint: Seizure Time Seen by Provider: 06/01/18 10:07 Past Medical History - Provider Review Nursing Documentation Reviewed: Yes - Travel History Have you recently traveled outside [place] w/in the past 3 mons?: No - Past History Past History: No Previous - Infectious Disease Hx of Infectious Diseases: None - Tetanus Immunization Tetanus Immunization: Up to Date, Unknown - Cardiac Hx Cardiac Disorders: Yes Hx [place]: No Hx Hypertension: Yes Other/Comment: [place] - Pulmonary Hx Respiratory Disorders: Yes Hx Asthma: Yes Hx Bronchitis: Yes - Neurological Hx Neurological Disorder: Yes Hx Migraine: Yes Hx Seizures: Yes - HEENT Hx HEENT Disorder: Yes Hx Epistaxis: Yes - Renal Hx Renal Disorder: Yes Hx Pyelonephritis: Yes - Endocrine/Metabolic Hx Endocrine Disorders: Yes Other/Comment: h/o adrenal mass - Hematological/Oncological Hx Blood Disorders: Yes Hx Cancer: Yes (cervix ca) - Integumentary Hx Dermatological Disorder: No - Musculoskeletal/Rheumatological Hx Musculoskeletal Disorders: Yes Hx Falls: Yes - Gastrointestinal Hx Gastrointestinal Disorders: Yes Hx Gastroesophageal Reflux: Yes - Genitourinary/Gynecological Hx Genitourinary Disorders: Yes Hx Cervical Cancer: Yes Hx Urinary Tract Infection: Yes - Psychiatric Hx Psychophysiologic Disorder: Yes Hx Bipolar Disorder: Yes Hx Substance Use: Yes - Past Surgical History Past Surgical History: No Previous - Surgical History Hx Cholecystectomy: Yes Hx Dilation and Curettage: Yes Other/Comment: adrenal removal on 03/07. - Anesthesia Hx Anesthesia: Yes Hx Anesthesia Reactions: Yes (states she woke up during surgeries) Hx Malignant Hyperthermia: No - Suicidal Assessment Feels Threatened In Home Enviroment: No <Olu Sarabia - Last Filed: 06/01/18 17:30> Family/Social History - Physician Review Nursing Documentation Reviewed: Yes Family/Social History: No Known Family HX Smoking Status: Heavy Smoker > 10 Cigarettes Daily Hx Alcohol Use: No Hx Substance Use: Yes Substance used: Marijuana Hx Substance Use Treatment: No <Olu Sarabia - Last Filed: 06/01/18 17:30> Allergies/Home Meds <Agustín Her - Last Filed: 06/01/18 11:47> <Olu Sarabia - Last Filed: 06/01/18 17:30> Allergies/Adverse Reactions: Allergies almond Allergy (Verified 05/16/18 18:51) ANAPHYLAXIS almond oil Allergy (Verified 05/16/18 18:51) ANAPHYLAXIS Penicillins Allergy (Verified 05/16/18 18:51) ANAPHYLAXIS phenytoin Allergy (Verified 05/16/18 18:51) RASH levetiracetam [From [facility]] Adverse Reaction (Intermediate, Verified 05/16/18 18:51) FATIGUE Extreme mood swing Home Medications: Home Meds Medication Instructions Recorded Confirmed Albuterol HFA [Ventolin HFA 90 0.09 mg IH PRN PRN 02/16/12 02/04/18 mcg/actuation (8 g)] Lamotrigine [Lamictal] 200 mg PO HS 02/16/12 02/04/18 Montelukast [Singulair] 10 mg PO DAILY 02/16/12 02/04/18 Albuterol 0.5% [Albuterol 0.5% 2.5 mg IH QID 05/04/13 02/04/18 Inhal Wendy (2.5 mg/0.5 ml) UD] QUEtiapine [Seroquel XR] 100 mg PO TID 01/31/14 02/04/18 QUEtiapine [Seroquel XR] 200 mg PO HS 01/31/14 02/04/18 clonazePAM [Klonopin] 1 mg PO TID 01/31/14 02/04/18 Cyanocobalamin [Vitamin B12 1000 1,000 mcg PO DAILY 03/11/16 02/04/18 mcg Tab] Naproxen [Naprosyn] 500 mg PO BID 03/11/16 02/04/18 Zolpidem [Ambien] 10 mg PO HS 03/11/16 02/04/18 hydrOXYzine Pamoate [Vistaril] 50 mg PO BID 03/11/16 02/04/18 Sumatriptan Succinate [Imitrex] 100 mg PO DAILY 02/04/18 02/04/18 Topiramate [Topamax] 25 mg PO BID 02/04/18 02/04/18 Review of Systems - Physician Review All systems were reviewed & negative as marked: Yes - Review of Systems Constitutional: Normal. absent: Fatigue, Weight Change Eyes: Normal. absent: Vision Changes, Photophobia ENT: Normal. absent: Hearing Changes, Tinnitus Respiratory: Normal. absent: SOB, Cough Cardiovascular: Normal. absent: Chest Pain, Palpitations Gastrointestinal: Normal. absent: Abdominal Pain, Nausea, Vomiting Musculoskeletal: Normal. absent: Arthralgias, Back Pain Skin: Normal. absent: Rash, Pruritis Neurological: Seizure. absent: Headache, Dizziness Endocrine: Normal. absent: Polyuria, Polydipsia Hemo/Lymphatic: Normal. absent: Adenopathy Psychiatric: Normal. absent: Anxiety, Depression <Olu Sarabia - Last Filed: 06/01/18 17:30> Physical Exam Vital Signs Temp Pulse Resp BP Pulse Ox 06/01/18 11:11 98.1 F 64 18 121/73 97 <Agustín Her - Last Filed: 06/01/18 11:47> Vital Signs Reviewed: Yes Temperature: Afebrile Blood Pressure: Normal Pulse: Regular Respiratory Rate: Normal Appearance: Positive for: Well-Appearing, Non-Toxic, Comfortable. No: Cachectic Pain Distress: Mild Mental Status: Positive for: Alert and Oriented X 3 - Systems Exam Head: Present: Atraumatic, Normocephalic. No: Abrasion Pupils: Present: PERRL. No: Sluggish Extroacular Muscles: Present: EOMI. No: Gaze Palsy Conjunctiva: Present: Normal. No: Injected Mouth: Present: Moist Mucous Membranes. No: Dry, Normal Teeth Neck: Present: Normal Range of Motion. No: Paraspinal Tenderness, JVD Respiratory/Chest: Present: Clear to Auscultation, Good Air Exchange. No: Wheezes Cardiovascular: Present: Regular Rate and Rhythm, Normal S1, S2. No: Tachycardic Abdomen: Present: Normal Bowel Sounds. No: McBurney's Point Tender, Ostomy Tu bes Upper Extremity: Present: Normal Inspection, Edema. No: Cyanosis, Erythema Lower Extremity: Present: Normal Inspection. No: Edema, CALF TENDERNESS Neurological: Present: CN II-XII Intact, Speech Normal Skin: Present: Dry, Normal Color Psychiatric: Present: Alert, Oriented x 3, Normal Insight <Olu Sarabia - Last Filed: 06/01/18 17:30> Medical Decision Making ED Course and Treatment: Patient Seen with Resident: In agreement with resident note which contains more details about the patient. Patient seen and evaluated with resident. Came up with plan and treatment toget her. 33 year old female presents z/p seizure that occurred earlier this morning. Patient did hit her head. Plan: -- CT Head w/o contrast -- EKG -- Labs -- POC Urine -- Urinalysis -- Reassess and disposition - Lab Interpretations Lab Results: 06/01/18 11:30 Lab Results 06/01/18 11:30: WBC 9.1, RBC 4.87, Hgb 14.6, Hct 42.6, MCV 87.5, MCH 30.0, MCHC 34.3, RDW 13.7, Plt Count 345, MPV 10.3, Gran % 70.3 H, Lymph % (Auto) 21.5 L, Crisp % (Auto) 7.7 H, Eos % (Auto) 0.2 L, Baso % (Auto) 0.3, Gran # 6.42, Lymph # (Auto) 2.0, Crisp # (Auto) 0.7 H, Eos # (Auto) 0.0, Baso # (Auto) 0.03 I have reviewed the lab results: Yes - RAD Interpretation Radiology Orders: 06/01/18 10:32 HEAD W/O CONTRAST [CT] Stat - EKG Interpretation Interpreted by ED Physician: Yes Type: 12 lead EKG <Agustín Her - Last Filed: 06/01/18 11:47> ED Course and Treatment: 06/01/18 10:42 33 year old female with a past medical history of seizures presents after seizures. Seizures vs. Syncope vs. Electrolyte imbalance Plan: CBC CMP u/a Head CT 06/01/18 12:[address] negative for any acute abnormality 06/01/18 13:07 Patient left AMA. Discussed with patient the risk of leaving and she understands. - RAD Interpretation Radiology Orders: 06/01/18 10:32 HEAD W/O CONTRAST [CT] Stat <Olu Sarabia - Last Filed: 06/01/18 17:30> - Scribe Statement The provider has reviewed the documentation as recorded by the Meka Henriquez Provider Scribe Attestation: All medical record entries made by the Scribe were at my direction and personally dictated by me. I have reviewed the chart and agree that the record accurately reflects my personal performance of the history, physical exam, medical decision making, and the department course for this patient. I have also personally directed, reviewed, and agree with the discharge instructions and disposition. <Agustín Her - Last Filed: 06/01/18 11:47> Disposition/Present on Arrival <[facility] Systems[facility] - Last Filed: 06/01/18 11:47> - Present on Arrival Any Indicators Present on Arrival: No History of DVT/PE: No History of Uncontrolled Diabetes: No Urinary Catheter: No History of Decub. Ulcer: No History Surgical Site Infection Following: None - Disposition Have Diagnosis and Disposition been Completed?: No Disposition Time: 12:05 <Olu Sarabia - Last Filed: 06/01/18 17:30> - Disposition Diagnosis: Status post seizure Disposition: AGAINST MEDICAL ADVICE Condition: UNKNOWN Referrals: Virgie Tomas MD [Primary Care Provider] - Follow up with primary Forms: [employer] (Greek)
[2018-06-01 11:11] VITALS: BP 121/73; PULSE 64; RESP 18
[2018-06-01 11:40] LABS: BASO # 0.03 K/mm3 (0.0-2.0); BASO % 0.3 % (0.0-3.0); EOS % 0.2 % (1.5-5.0); GRAN # 6.42 (1.4-6.5); GRAN % 70.3 % (50.0-68.0); HEMOGLOBIN 14.6 g/dL (12.0-16.0); LYMPH % 21.5 % (22.0-35.0); MEAN CELL VOLUME 87.5 fl (80.0-105.0); MEAN CORPUSCULAR HGB CONC 34.3 g/dl (31.0-37.0); MEAN PLATELET VOLUME 10.3 fl (7.0-11.0); MONO # 0.7 (0.1-0.6); MONO % 7.7 % (1.0-6.0); RBC 4.87 10^6/uL (3.5-6.1); RED CELL DISTRIBUTION WIDTH 13.7 % (11.5-14.5); WHITE BLOOD COUNT 9.1 10^3/uL (4.5-11.0)
[2018-06-01 11:50] LABS: ALB/GLOB RATIO 1.2 (1.1-1.8); ALBUMIN 4.6 g/dL (3.0-4.8); ALT/SGPT 18 U/L (7-56); AST/SGOT 19 U/L (14-36); BLOOD UREA NITROGEN 5 mg/dL (7-21); CALCIUM 9.6 mg/dL (8.4-10.5); GFR NON-AFRICAN AMERICAN > 60
[2018-06-01 11:55] LABS: PH,URINE 7.5 (4.7-8.0); URINE BILIRUBIN NEGATIVE (NEGATIVE); URINE BLOOD NEGATIVE (NEGATIVE); URINE GLUCOSE (UA) NEGATIVE (NEGATIVE); URINE LEUKOCYTE ESTERASE NEGATIVE Leu/uL (NEGATIVE); URINE PROTEIN 30 mg/dL (<30 mg/dL); URINE UROBILINOGEN 0.2 E.U./dL (<1 E.U./dL)
[2018-06-01 11:59] LABS: URINE APPEARANCE CLEAR (CLEAR); URINE COLOR YELLOW (YELLOW)
[2018-06-01 12:10] LABS: URINE AMORPHOUS SEDIMENT MODERATE; URINE BACTERIA LARGE (NEG); URINE RBC 0 - 2 /hpf (0-2)
[2018-06-01 12:11] VITALS: TEMP 98; O2SAT 99
--- NOTE | 2018-06-01 14:01 | CARD ---
APPROVED REPORT Date of service: 06/01/2018 EKG Measurement Heart [id number] <Conclusion> Normal sinus rhythm with sinus arrhythmia Normal ECG
== END 2018-06-01 12:01 | disposition left against medical advice (07) ==
LOC: ED 10:03
DX: R56.9 Unspecified convulsions (principal); F17.210 Nicotine dependence, cigarettes, uncomplicated; I10 Essential (primary) hypertension; I25.2 Old myocardial infarction

== ENCOUNTER 2018-12-07 20:48 | Emergency (ER) | payer OTHER ==
[2018-12-07] MEDS ORDERED: Sodium Chloride 0.9% 1,000 ML IV SCH (21:00)
--- NOTE | 2018-12-07 21:05 | ED PDOC ---
Arrival/HPI - General Chief Complaint: Seizure Time Seen by Provider: 12/07/18 20:51 Historian: Patient, EMS - History of Present Illness Narrative History of Present Illness (Text): 12/07/18 21:01 33 year old female, whose past medical history includes asthma, atrophic kidney, psychogenic nonepileptic seizure disorder, anxiety, and bipolar disorder, presents to the emergency department brought in by EMS status post witnessed seizure. Patient is approximately 7 months . Patient informs she is a high risk , and is under the care of her CRYSTAL ATTACHER, Dr Mccollum at [facility]. Patient informs witnesses are unaware of the duration of her seizure. Patient informs of suprapubic abdominal cramping, as well as lower back pain. Patient denies any fevers, chills, chest pain, shortness of breath, dyspnea on exertion, cough, diaphoresis, or any other complaint. CRYSTAL ATTACHER: Dr. Teresa Mccollum PMD: Dr. Evans Tomas Time/Duration: Prior to Arrival Symptom Onset: Sudden Symptom Course: Resolved Quality: Cramping Activities at Onset: Light Context: Street Past Medical History - Provider Review Nursing Documentation Reviewed: Yes - Past History Past History: No Previous - Infectious Disease Hx of Infectious Diseases: None - Tetanus Immunization Tetanus Immunization: Up to Date, Unknown - Cardiac Hx Cardiac Disorders: Yes Hx [place]: No Hx Hypertension: Yes Other/Comment: [place] - Pulmonary Hx Respiratory Disorders: Yes Hx Asthma: Yes Hx Bronchitis: Yes - Neurological Hx Neurological Disorder: Yes Hx Migraine: Yes Hx Seizures: Yes - HEENT Hx HEENT Disorder: Yes Hx Epistaxis: Yes - Renal Hx Renal Disorder: Yes Hx Pyelonephritis: Yes - Endocrine/Metabolic Hx Endocrine Disorders: Yes Other/Comment: h/o adrenal mass - Hematological/Oncological Hx Blood Disorders: Yes Hx Cancer: Yes (cervix ca) - Integumentary Hx Dermatological Disorder: No - Musculoskeletal/Rheumatological Hx Musculoskeletal Disorders: Yes Hx Falls: Yes - Gastrointestinal Hx Gastrointestinal Disorders: Yes Hx Gastroesophageal Reflux: Yes - Genitourinary/Gynecological Hx Genitourinary Disorders: Yes Hx Cervical Cancer: Yes Hx Urinary Tract Infection: Yes - Psychiatric Hx Psychophysiologic Disorder: Yes Hx Bipolar Disorder: Yes Hx Substance Use: Yes - Past Surgical History Past Surgical History: No Previous - Surgical History Hx Cholecystectomy: Yes Hx Dilation and Curettage: Yes Other/Comment: adrenal removal on 03/07. - Anesthesia Hx Anesthesia: Yes Hx Anesthesia Reactions: Yes (states she woke up during surgeries) Hx Malignant Hyperthermia: No - Suicidal Assessment Feels Threatened In Home Enviroment: No Family/Social History - Physician Review Nursing Documentation Reviewed: Yes Family/Social History: No Known Family HX Smoking Status: Heavy Smoker > 10 Cigarettes Daily Hx Alcohol Use: No Hx Substance Use: Yes Substance used: Marijuana Hx Substance Use Treatment: No Allergies/Home Meds Allergies/Adverse Reactions: Allergies almond Allergy (Verified 05/16/18 18:51) ANAPHYLAXIS almond oil Allergy (Verified 05/16/18 18:51) ANAPHYLAXIS Penicillins Allergy (Verified 05/16/18 18:51) ANAPHYLAXIS phenytoin Allergy (Verified 05/16/18 18:51) RASH levetiracetam [From [facility]] Adverse Reaction (Intermediate, Verified 05/16/18 18:51) FATIGUE Extreme mood swing Home Medications: Home Meds Medication Instructions Recorded Confirmed Albuterol HFA [Ventolin HFA 90 0.09 mg IH PRN PRN 02/16/12 02/04/18 mcg/actuation (8 g)] Lamotrigine [Lamictal] 200 mg PO HS 02/16/12 02/04/18 Montelukast [Singulair] 10 mg PO DAILY 02/16/12 02/04/18 Albuterol 0.5% [Albuterol 0.5% 2.5 mg IH QID 05/04/13 02/04/18 Inhal Wendy (2.5 mg/0.5 ml) UD] QUEtiapine [Seroquel XR] 100 mg PO TID 01/31/14 02/04/18 QUEtiapine [Seroquel XR] 200 mg PO HS 01/31/14 02/04/18 clonazePAM [Klonopin] 1 mg PO TID 01/31/14 02/04/18 Cyanocobalamin [Vitamin B12 1000 1,000 mcg PO DAILY 03/11/16 02/04/18 mcg Tab] Naproxen [Naprosyn] 500 mg PO BID 03/11/16 02/04/18 Zolpidem [Ambien] 10 mg PO HS 03/11/16 02/04/18 hydrOXYzine Pamoate [Vistaril] 50 mg PO BID 03/11/16 02/04/18 Sumatriptan Succinate [Imitrex] 100 mg PO DAILY 02/04/18 02/04/18 Topiramate [Topamax] 25 mg PO BID 02/04/18 02/04/18 Review of Systems - Physician Review All systems were reviewed & negative as marked: Yes - Review of Systems Constitutional: absent: Fevers, Night Sweats Respiratory: absent: SOB, Cough Cardiovascular: absent: Chest Pain, POOLE Gastrointestinal: Abdominal Pain Musculoskeletal: Back Pain Physical Exam - Physical Exam Narrative Physical Exam (Text): 12/07/18 21:10 Gen: VS reviewed, alert, well developed, well nourished, nontoxic, mild distress Eye: EOMI, PERRL ENT: normal pharynx. Neck: no JVD, supple, no adenopathy CV: regular rate, regular rhythm, no rubs,no murmur, S1, S2 Pulm: no distress, clear to auscultation, no wheeze, no rhonchi, breath sounds equal, no rales Abd: Gravid abdomen Ext: no edema Skin: good color, no rash, no cyanosis Psych: responds appropriately to questions, normal affect Neuro: oriented x3, CN2-12 intact grossly, motor intact, sensation intact Vital Signs Reviewed: Yes Vital Signs Pulse Resp BP Pulse Ox 12/07/18 20:51 104 H 18 148/86 98 Temperature: Afebrile Blood Pressure: Normal Pulse: Tachycardic Respiratory Rate: Normal Appearance: Positive for: Well-Appearing, Non-Toxic, Comfortable Pain Distress: None Mental Status: Positive for: Alert and Oriented X 3 Medical Decision Making ED Course and Treatment: 12/07/18 21:07 Impression: 33 year old female presents s/p seizure. ddx including but not limited to: breathrough seizure, eclampsia,psychogenic seizures, cerebral venous thrombosis. there is no photphobia or meningismus to suggest meningitis, there are no neuro deficits. will defer neuroimaging to acepting physicians at [facility]. ultimately if there is a concern for cerebrla venous thrombosis MRV would be the test of choice. Plan: -- EKG -- CMP, Mg -- CBC -- Straight Cath -- Urinalysis -- Reassess and disposition Prior Visits: Notes and results from previous visits were reviewed. Progress Notes: 12/07/18 21:[address] boogie, obgyn at [facility], accepts patient for transfer. patient to go to directly to L&D. At this time the patient is clinically stable and awaiting transport. - EKG Interpretation EKG Interpretation (Text): 12/07/18 21:11 Normal sinus rhythm @ 99bpm Normal QRS, normal axis No acute STT wave abnormality Interpreted by ED Physician: Yes Type: 12 lead EKG - Medication Orders Current Medication Orders: Sodium Chloride (Sodium Chloride 0.9%) 1,000 mls @ 150 mls/hr IV .[id number] ROBERTO - Scribe Statement The provider has reviewed the documentation as recorded by the Scribe Adam Miller All medical record entries made by the Scribe were at my direction and personally dictated by me. I have reviewed the chart and agree that the record accurately reflects my personal performance of the history, physical exam, medical decision making, and the department course for this patient. I have also personally directed, reviewed, and agree with the discharge instructions and disposition. Disposition/Present on Arrival - Present on Arrival Any Indicators Present on Arrival: No History of DVT/PE: No History of Uncontrolled Diabetes: No Urinary Catheter: No History of Decub. Ulcer: No History Surgical Site Infection Following: None - Disposition Have Diagnosis and Disposition been Completed?: Yes Diagnosis: Seizure, Disposition: Transfer [facility] Disposition Time: 21:38 Patient Plan: Transfer To ([facility]) Condition: GUARDED Forms: [employer] (Wolof)
[2018-12-07 21:06] VITALS: O2SAT 98; BMI 35.4
[2018-12-07 21:09] VITALS: TEMP 98.8
[2018-12-07 21:13] LABS: BASO # 0.03 K/mm3 (0.0-2.0); BASO % 0.2 % (0.0-3.0); EOS % 0.1 % (1.5-5.0); HEMOGLOBIN 12.7 g/dL (12.0-16.0); LYMPH # 3.4 (1.2-3.4); LYMPH % 18.2 % (22.0-35.0); MEAN CELL VOLUME 90.7 fl (80.0-105.0); MEAN CORPUSCULAR HEMOGLOBIN 31.2 pg (25.0-35.0); MEAN CORPUSCULAR HGB CONC 34.4 g/dl (31.0-37.0); MEAN PLATELET VOLUME 10.9 fl (7.0-11.0); MONO # 1.1 (0.1-0.6); MONO % 5.6 % (1.0-6.0); RBC 4.07 10^6/uL (3.5-6.1); RED CELL DISTRIBUTION WIDTH 13.1 % (11.5-14.5); WHITE BLOOD COUNT 18.9 10^3/uL (4.5-11.0)
[2018-12-07 21:21] LABS: ALB/GLOB RATIO 1.1 (1.1-1.8); ALBUMIN 3.9 g/dL (3.0-4.8); ALT/SGPT 24 U/L (7-56); AST/SGOT 30 U/L (14-36); BLOOD UREA NITROGEN 6 mg/dL (7-21); CALCIUM 8.7 mg/dL (8.4-10.5); GFR NON-AFRICAN AMERICAN > 60
[2018-12-07 21:39] LABS: PH,URINE 6.5 (4.7-8.0); URINE APPEARANCE CLEAR (CLEAR); URINE BILIRUBIN NEGATIVE (NEGATIVE); URINE BLOOD NEGATIVE (NEGATIVE); URINE COLOR YELLOW (YELLOW); URINE GLUCOSE (UA) NEGATIVE (NEGATIVE); URINE LEUKOCYTE ESTERASE TRACE Leu/uL (NEGATIVE); URINE PROTEIN 30 mg/dL (<30 mg/dL); URINE UROBILINOGEN 0.2 E.U./dL (<1 E.U./dL)
[2018-12-07 21:48] LABS: URINE EPITHELIAL CELLS 0 - 2 /hpf (0-5); URINE RBC 0 - 2 /hpf (0-2); URINE WBC 0 - 2 /hpf (0-6)
[2018-12-07 22:11] VITALS: BP 141/77; PULSE 89; RESP 22
--- NOTE | 2018-12-08 18:23 | CARD ---
APPROVED REPORT Date of service: 12/07/2018 EKG Measurement Heart [id number] <Conclusion> Normal sinus rhythm Normal ECG
== END 2018-12-07 22:20 | disposition short-term general hospital (02) ==
LOC: ED 20:48
DX: O26.893 Other specified pregnancy related conditions, third trimester (principal); Z3A.28 28 weeks gestation of pregnancy; G40.909 Epilepsy, unspecified, not intractable, without status epilepticus
CPT/HCPCS: 80053; 81001; 83735; 85025; 93005; 99285; J7030